=== PATIENT | male | born 1945 | race Caucasian/White ===

== ENCOUNTER 2018-07-11 07:33 | Inpatient (IN) ==
[2018-07-11] MEDS ORDERED: SODIUM CHLORIDE 0.9% 1000ML 1,000 ML IV SCH (08:15)
[2018-07-11] MEDS ORDERED: CEFEPIME 2,000 MG/20 ML VIAL IV STA (08:21)
[2018-07-11 08:38] LABS: Appearance Urine Clear (Clear); Bacteria Urine Automated Negative (Negative); Blood Urine Negative (Negative); Epithelial Cell Urine Auto 20-30 /lpf (0-5); Glucose Urine UA Negative (Negative); Ketones Urine Negative (Negative); Leukocyte Esterase Urine Trace (Negative); Nitrite Urine Positive (Negative); Protein Urine Negative (Negative); RBC Urine Automated 0-4 /hpf (0-4); Specific Gravity Urine 1.022 (1.000-1.030); Urobilinogen Urine Positive (Negative); WBC Urine Automated 0 /hpf (0-5)
[2018-07-11 08:45] LABS: Color Urine Dark Yellow
[2018-07-11 08:52] LABS: Bilirubin Urine Negative (Negative); Ictotest Urine Negative (Negative)
[2018-07-11 09:18] LABS: Albumin Level 2.8 gm/dl (3.4-5.0); BUN Creatinine Ratio 41.7 (10-20); Calcium 9.8 mg/dl (8.5-10.1); Creatinine Clr Calc Pharmacy 45.6 ml/min; Est GFR (African American) 43.8; Est GFR (Non-African American) 37.8; Magnesium 1.2 mg/dl (1.8-2.4); Potassium 4.3 mmol/L (3.5-5.1)
[2018-07-11 09:25] LABS: Bilirubin,Total 2.7 mg/dl (0.2-1); Globulin 2.7 gm/dl (2.5-4.0); Total Protein 5.5 gm/dl (6.4-8.2)
[2018-07-11 09:26] LABS: INR 1.1 (0.9-1.1); Partial Thromboplastin Ratio 0.8; Partial Thromboplastin Time 22.8 Seconds (21.0-31.0); Prothrombin Time 10.9 Seconds (9.0-12.0)
[2018-07-11] MEDS ORDERED: SODIUM CHLORIDE 0.9% 1000ML 1,000 ML IV ONE (09:36)
[2018-07-11] MEDS ORDERED: HYDROmorphone INJ 0.5 MG/0.5 ML SYR IV STA ×2 (09:36→10:45)
[2018-07-11 10:08] LABS: Agglutinated RBC 3+; Basophils # (auto) 0.01 K/uL (0-0.2); Basophils % (auto) 0.1 %; Eosinophils # (auto) 0.92 K/uL (0-0.5); Eosinophils % (auto) 5.7 %; Hematocrit (blood only) 25.7 % (42-52); Hemoglobin 9.2 g/dL (14.0-18.0); Immature Granulocytes # (auto) 0.19 K/uL (0.00-0.02); Immature Granulocytes % (auto) 1.2 %; Lymphocytes # (auto) 1.24 K/uL (1.2-3.4); Lymphocytes % (auto) 7.7 %; Mean Corpuscular Hgb Conc 35.8 g/dL (32-36); Mean Corpuscular Volume 94.5 fL (80-100); Monocytes # (auto) 0.29 K/uL (0.11-0.59); Monocytes % (auto) 1.8 %; Neutrophils # (auto) 13.52 K/uL (1.4-6.5); Neutrophils % (auto) 83.5 %; Platelet Count 356 K/uL (130-400); Red Blood Count 2.72 M/uL (4.7-6.1); White Blood Count 16.17 K/uL (4.8-10.8)
--- NOTE | 2018-07-11 11:21 | History & Physical Report ---
Date of Service July 11, 2018 Assessment & Plan (1) Knee pain: (2) Right shoulder pain: (3) Rash: Pt presented to ER with c/o intermittent ANDUJAR, intermittent R shoulder and L knee pain, 2 episodes of visual disturbance and generalized weakness and rash. Pt seen in PCP office on 07/09/18 and was found to have rash to abdomen and lower extremities and was hypotensive in office and was referred to ER. In ER patient was found to have leukocytosis, elevated bilirubin and abnormal renal functions. Had CT head negative for acute changes, chest x-ray was negative, CT abdomen/pelvis showed hepatic steatosis, left knee xray: mild degenerative change & small joint effusion. Patient was treated for possible UTI, discharged on Keflex. Urine culture results: probable contaminants. Patient has continued weakness, intermittent right shoulder and left knee pain, and rash. Today In ER pt afebrile, P: 75, R: 18, BP: 86/51 up to 101/54, 100% on RA. WBC: 16 (from 15.3 on 07/09/18), H/H: 9.2/25.7 (from 12.4/36.2 on 07/09/18), Plt: 356, INR: 1.1, PTT: 22.8, BUN: 73, Cr: 1.75, Lactate: 1.8 -In ER was given Cefepime, 2L NSS, Dilaudid 0.5mg IV DDX: rheumatological vs infectious etiology -further rheumatology labs pending -pending lyme -doxycycline -monitor CBC, BMP -ID consult, appreciate recommendations -May need to consider rheumatology consult (4) Elevated bilirubin: Total Bili: 2.7 (from 4.7 on 07/09/18). AST: 12, ALT: 32, Alk phos: 78 -monitor liver functions -pending hepatitis panel -GI consult (5) MOIRA (acute kidney injury): BUN: 73 (was 39 on 07/09/18), Cr: 1.75 (was 1.65 on 07/09/18). Out patient rec ords reviewed and baseline Cr: 1.0 with GFR >60 -monitor renal functions -avoid nephrotoxic agents when possible -hold home lisinopril/hctz (6) Hypomagnesemia: Magnesium: 1.2 -replace and monitor (7) HTN (hypertension): Pt reports had morning BP meds Initially hypotensive in ER, improved with IVF, however still on lower side -hold home lisinopril/HCTZ (8) Dyslipidemia: -Hold atorvastatin (9) Malignant neoplasm of prostate: H/O prostate CA s/p surgery DNR/DNI as per discussion with pt Follows with Dr Harris for routine care Pt was seen with Dr Mohamud. See addendum for further assessment and plan. History of Present Illness Chief Complaint: Rash, joint pain Primary Care Provider: Keith Harris MD Pt is 72 y/o M with PMH HTN, dyslipidemia, prostate CA s/p surgery, presented to ER with c/o joint pain and rash x 2 days. Patient states 2 days ago started with pain to right shoulder and left knee that has been intermittent and described as sharp when pain occurs. He feels like he has joint stiffness to left knee, and is unsure if had any knee swelling and has not noticed any redness or warmth to joint. Denies any known injury. Patient also reports his been having intermittent sweats and has been having generalized weakness. He has had intermittent frontal headache the past 2 days. Patient reports history of intermittent headaches occurring once to couple times a month and this headache felt similar. He states over the past 2 days he has had 2 episodes of visual disturbance where he has been unable to see and "felt like somebody was shining a flashlight into his eye" that lasted several minutes and then resolved. Patient denies any known headache with visual disturbance. Today describes diffuse body aching with movement. Pt seen in PCP office on 07/09/18 and was found to have rash to abdomen and lower extremities and was hypotensive in office and was referred to ER. In ER patient was found to have leukocytosis, elevated bilirubin and abnormal renal functions. Had CT head negative for acute changes, chest x-ray was negative, CT abdomen/pelvis showed hepatic steatosis, left knee xray: mild degenerative change & small joint effusion. Patient was treated for possible UTI, discharged on Keflex. Urine culture results: probable contaminants. Patient states has continued to have generalized weakness, intermittent right shoulder and left knee pain. He also reports he has noticed a rash that comes and goes to his abdomen and extremities. Denies any pain or itching at site of rash. Today noticed some tingling sensation to right fingers, and right leg with some numbness. No bowel movement today, reports formed dark stool yesterday. Has noticed orange color urine past couple of days. States approximately one month ago and influenza and reports no further cough since. Patient had outpatient Lyme titer which was negative on 07/07/2018. Reports couple years ago had known tick bite, denies any recent known tick bites. Denies recent travel, ill contacts. Denies fever/chills, N/V/D/C, dizziness, syncope, neck pain, neck stiffness, CP, SOB, orthopnea, palpitations, sore throat, choking, otalgia, rhinorrhea, abdominal pain, dysuria, urinary frequency, loss control of bowel/bladder, saddle paresthesias. Allergies Allergy/AdvReac Type Severity Reaction Status Date / Time omeprazole AdvReac Nausea Unverified 07/09/18 14:38 Home Medications Home Medications Medication Instructions Recorded Confirmed Type [id number] 1 tab PO Q6H PRN 07/09/18 07/11/18 History [Excedrin Extra Strength] atorvastatin 20 mg PO DAILY 07/09/18 07/11/18 History cephalexin [Keflex] 500 mg PO BID 7 Days #14 cap 07/09/18 07/11/18 Rx lisinopril-hydrochlorothiazide 1 tab PO BID 07/09/18 07/11/18 History multivitamin 1 tab PO DAILY 07/09/18 07/11/18 History omega 0-brf-wup-fish oil [Fish Oil] 2 cap PO BID 07/09/18 07/11/18 History oxycodone [Roxicodone] 5 mg PO Q8H PRN #9 tab 07/09/18 07/11/18 Rx pantoprazole 20 mg PO DAILY 07/09/18 07/11/18 History Past Med/Surg History Medical History Dyslipidemia (Chronic) HTN (hypertension) (Chronic) Malignant neoplasm of prostate (Chronic) s/p surgery HTN (hypertension) Hyperlipidemia Surgical History History of hemorrhoidectomy (Chronic) History of appendectomy (Chronic) History of carpal tunnel surgery of right wrist (Chronic) History of prostate surgery (Chronic) Family History Other Family history non-contributory Social History Preferred Language: Nigerien Communication Ability: Effective 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 Beliefs That Will Affect Care: None marital status: Current Living Situation: Spouse current occupational status: retired Other Information That Helps Us Care for You: No Feels Safe at Home: Yes Safety Concerns: Feels Safe At This Time Smoking Status: Former smoker Do You Dip or Chew Tobacco: No Second Hand Exposure: No Tobacco Cessation Education Requested by Patient: No Hx Alcohol Use: Yes Alcohol type: beer and wine Hx Substance Use: No Review of Systems Review of Systems: All systems reviewed & are unremarkable except as noted in HPI & below Physical Exam Physical Exam: General: no acute distress, obese Head: normocephalic, atraumatic Eyes: PERRL, EOM's intact, conjunctiva non-injected, anicteric ENT: normal inspection external ears, nose, mucous membranes mildly dry Neck: supple, trachea midline, non-tender, ROM intact, no rigidity noted Lungs: clear, no respiratory distress, no wheezing/rhonchi/rales CV: RRR, no murmur, no pitting pretibial edema Abd: normal BS, soft, non-tender Ext: Right shoulder with diffuse mild tenderness to palpation, ROM intact with tenderness, L knee with tenderness with flexion and extension without noted erythema or significant warmth or edema, distal pulses palpable Neuro: A&O x 3, no focal deficits noted, normal affect Skin: warm, dry, + non-blanching erythematous macules and papules to abdomen and bilateral legs, bilateral toes and bilateral fingers with dusky skin Results & Data Vital Signs (Past 12 Hours) Vital Signs Temp Pulse Pulse Resp BP BP Pulse Ox 07/11/18 10:31 75 14 109/53 L 100 07/11/18 10:30 77 19 100 07/11/18 10:16 77 16 89/38 L 98 07/11/18 10:15 77 23 95 07/11/18 10:01 77 18 81/57 L 96 07/11/18 10:00 80 16 94 07/11/18 09:47 76 18 07/11/18 09:46 75 18 97/48 L 05/05/19 09:45 77 18 07/11/18 09:31 77 14 101/50 L 07/11/18 09:30 80 26 H 07/11/18 09:16 80 31 H 103/51 L 07/11/18 09:15 73 19 97 07/11/18 09:01 79 25 H 104/47 L 96 07/11/18 09:00 81 24 98 07/11/18 08:57 83 21 113/56 L 97 07/11/18 08:55 79 30 H 101/54 L 95 07/11/18 08:54 76 20 95 07/11/18 08:47 78 25 H 101/54 L 97 07/11/18 07:37 36.8 C 75 18 86/51 L 100 Laboratory Results Short CBC 07/11/18 Range/Units 08:48 WBC 16.17 H (4.8-10.8) K/uL Hgb 9.2 L D (14.0-18.0) g/dL Hct 25.7 L (42-52) % Plt Count 356 (130-400) K/uL BMP 07/11/18 08:48 Sodium 133 L Potassium 4.3 Chloride 101 Carbon Dioxide 26 BUN 73 H D Creatinine 1.75 H Glucose 128 H Calcium 9.8 Liver Function 07/11/18 Range/Units 08:48 Total Bilirubin 2.7 H (0.2-1) mg/dl AST 12 L (15-37) U/L ALT 32 (12-78) U/L Alkaline Phosphatase 78 (45-117) U/L Albumin 2.8 L (3.4-5.0) gm/dl Urine 07/11/18 Range/Units 08:25 Urine Color Dark Yellow Urine Appearance Clear (Clear) Urine pH 5.0 (4.5-7.5) Ur Specific [place] 1.022 (1.000-1.030) Urine Protein Negative (Negative) Urine Glucose (UA) Negative (Negative) Supervising Physician Co-Signing Physician Notes I saw this patient with the physician senior court office assistant, I participated in the history, physical, review of systems, and physical exam. I reviewed the medications with the patient and the physician senior court office assistant and helped reconcile the medications. I helped take a detailed family and social history as well. I formulated the as sessment and plan personally with the physician senior court office assistant and went over it with the patient. Initiated Rheum w/u, this all coulb be viral or Rheumatic, ID and vascular to see. ROS-No Headache, No Visual Changes, No Nausea, No Vomiting, No Fever, No Chills, No Neck Pain, +Stiffness, No Chest Pain, No Palpitations, No SOB, No FERRARI, No Cough, No Sputum, No Wheezing, No Abdominal Pain, No Diarrhea, No Hematemesis, No Hemoptysis, No Unexpected Weight Loss, No Flank pain, No Melena, No Hematochezia, No Frequency, No Urgency, No Burning, No Hematuria, No Diaphoresis. Appetite is Normal, +Myalgias and arthralgias, +Rash, Weakness Physical Exam Gen-AAO x 3, NAD, Afebrile, Pleasant, Obese Head-NCAT, EOMI, PERRLA, Anicteric Sclera, No Posterior Pharyngeal Erythema Neck-Supple, No JVD, No Thyromegaly, No Masses, No LAD, No Bruits Lungs-Clear to Auscultation Bilaterally, No Rales, No Rhonchi, No Wheezing, No Crepitus Chest-No S4, +S1, +S2, No S3, No Murmurs, No Rubs, No Gallops, No Ectopy Abdomen-Soft, Bowel Sounds Present, Non Tender, Non Distended, No Hepatomegaly, No Splenomegaly, No Palpable Masses, No Rebound, No Rigidity, No Guarding Musculoskeletal-Full Range of Motion Bilaterally, No CVAT Extremities-+B/L toe Cyanosis and mottling, No Clubbing, Non Pitting Edema B/L LEs Nuero-Cranial Nerves II-XII grossly intact, Motor WNL, DTRs WNL, Strength WNL, Non Focal Psych-Normal Mood (1) Right shoulder pain Chronicity: acute Qualified Code(s): M25.511 - Pain in right shoulder
[2018-07-11] MEDS: DOXYCYCLINE HYCLATE 100 MG in DEXTROSE 5% 100 ML IV SCH ×2 (11:27→19:45)
--- NOTE | 2018-07-11 13:39 | Emergency Department Note ---
ED Visit Note I have personally evaluated this patient examined him and reviewed the pertinent labs and data. I have discussed the case with Dion Emerson, the physician lead recreation assistant and agree with the plan. Please refer to the PA note. This patient comes in complaining of joint aches and a rash. He was seen here on Thursday with similar complaints and extensive work-up which did reveal an elevated bilirubin as well as mild renal insufficiency and elevated white count. He was started on antibiotics for possible UTI. He has had no fever during any course in his illness his says his blood pressure has been low at times. When he triage he was in the 80s he quickly responded to fluids and is been in the low 100s here. he does complain of joint aches but otherwise is well- appearing after talking to Dion my PA, I was very concerned about his presentation and went to look at the patient immediately. I am concerned about the rash. It is vasculitic appearing is nonblanching on his feet where it is on his toes and he has spots on his legs as well that appear to be petechial/purpura. In light of this I did put him on respiratory isolation until we sort this out. His white count remains elevated at 16 however his lactic acid is normal he is afebrile. His hemoglobin has dropped a few grams since the last check however he has no blood in his stool and no signs of bleeding. It could potentially be hemolysis. His bilirubin actually looks better. We did cover empirically with 2 g of cefepime and did blood cultures. I do think he needs to be admitted for further treatment and evaluation this may be something infectious or viral. It could also be more vasculitic or rheumatologic. The [facility] team did see him in the ER for these measures. He did receive several liters of IV normal saline while in the ER as well as IV antibiotics. Critical care note I have personally spent greater than 30 minutes of critical care time in the [facility] management of this patient. This includes bedside care, interpretation of diagnostic studies, and testing, discussion with consultants, patient, and family members, and other required patient management activities. This 30 minutes is in excess of all separately billable procedures. .
[2018-07-11] MEDS ORDERED: ACETAMINOPHEN 325 MG TAB PO PRN (14:57)
[2018-07-11] MEDS ORDERED: ONDANSETRON INJ 2 MG/ML 2 ML VIAL IV PRN (14:57)
[2018-07-11] MEDS: OXYCODONE HCL IR 5 MG TAB (IMMEDIATE RELEASE) PO PRN (15:51)
[2018-07-11] MEDS: MAGNESIUM SULFATE / D5W 1 GM/100 ML BAG IV SCH ×2 (15:51→17:20)
[2018-07-11 16:08] LABS: Anti Streptolysin O Screen <200 IU/ml IU/ml (<200 IU/ml)
[2018-07-11 16:12] LABS: Lyme Ab IgG w/WB Rflx Negative (Negative); Lyme Ab IgM w/WB Rflx Negative (Negative)
[2018-07-11 16:48] LABS: Hepatitis B Surface Antigen Neg (Neg)
[2018-07-11 17:16] LABS: Act87 Hepatitis C IgG Screen Neg (Neg); Hepatitis C IgG 13Yrs+Old_Rflx Neg (Neg)
[2018-07-11] MEDS: HYDROmorphone INJ 0.5 MG/0.5 ML SYR IV PRN (19:45)
[2018-07-11] MEDS ORDERED: CEFEPIME CONSULT ACTIVE PRN (20:58)
[2018-07-12] MEDS: OXYCODONE HCL IR 5 MG TAB (IMMEDIATE RELEASE) PO PRN (03:55)
[2018-07-12 05:47] LABS: INR 1.1 (0.9-1.1); Prothrombin Time 11.3 Seconds (9.0-12.0)
[2018-07-12 06:01] LABS: Albumin Level 2.4 gm/dl (3.4-5.0); BUN Creatinine Ratio 49.4 (10-20); Calcium 8.8 mg/dl (8.5-10.1); Creatinine Clr Calc Pharmacy 45.8 ml/min; Est GFR (African American) 45.4; Est GFR (Non-African American) 39.1; Magnesium 1.4 mg/dl (1.8-2.4); Potassium 4.4 mmol/L (3.5-5.1)
[2018-07-12 06:04] LABS: Bilirubin,Total 3.2 mg/dl (0.2-1); Globulin 2.4 gm/dl (2.5-4.0); Total Protein 4.8 gm/dl (6.4-8.2)
[2018-07-12] MEDS: MAGNESIUM SULFATE / D5W 1 GM/100 ML BAG IV SCH ×2 (07:40→08:45)
[2018-07-12] MEDS: MULTIVITAMIN TAB PO SCH (07:41)
[2018-07-12] MEDS: PANTOprazole 40 MG TAB PO SCH (07:41)
[2018-07-12] MEDS: HYDROmorphone INJ 0.5 MG/0.5 ML SYR IV PRN ×2 (07:45→14:26)
[2018-07-12] MEDS: CEFEPIME 2,000 MG in SYRINGE 7.5 ML IV SCH (09:45)
--- NOTE | 2018-07-12 09:54 | Consultation ---
Date of Consultation July 12, 2018 Assessment & Plan (1) Extremity cyanosis: Pt with unusual sx of rash and joint pain and palpable pulses with painless cool/mottled distal extremities. Possibly some component of small vessel vasculitis, however, larger picture points toward autoimmune vs infe ctious etiology. No ESR results in chart. Unable to perform PPG's at this facility. No vascular surgical intervention would be beneficial for this pt. Do recommend rheumatology consult. Please call if needed. Present on Admission?: Yes History of Present Illness Reason for Consultation: mottled fingers and toes Attending Physician: Abhishek Mohamud DO History of Present Illness 72 yo m with hx of HTN, prostate ca s/p prostatectomy, and dyslipidemia, admitted with generalized weakness, rash, and mottled extremities, seen in consultation today for mottled toes/fingers. Pt states he was in normal state of health until about 3-4 days ago, when he began noting generalized weakness and R shoulder/L knee pain. Went to his PCP and noted mottling of abd/fingers to elbow/toes/feet as well as hypotension, and was sent to [facility]. Pt has never had similar sx. Mottling to extremities is intermittent. Admits associated tingling. Denies associated pain or worsening weakness. Admits fatigue and lack of appetite. Denies ANDUJAR, fever, sick contacts, recent traveling, chest pain, SOB, cough, N/V/D, rest pain, claudication, other complaints. No vascular imaging has been performed. Allergies Allergy/AdvReac Type Severity Reaction Status Date / Time omeprazole AdvReac Nausea Unverified 07/09/18 14:38 Home Medications Home Medications Medication Instructions Recorded Confirmed Type [id number] 1 tab PO Q6H PRN 07/09/18 07/11/18 History [Excedrin Extra Strength] atorvastatin 20 mg PO DAILY 07/09/18 07/11/18 History cephalexin [Keflex] 500 mg PO BID 7 Days #14 cap 07/09/18 07/11/18 Rx lisinopril-hydrochlorothiazide 1 tab PO BID 07/09/18 07/11/18 History multivitamin 1 tab PO DAILY 07/09/18 07/11/18 History omega 7-bxx-zte-fish oil [Fish Oil] 2 cap PO BID 05/03/19 05/05/19 History oxycodone [Roxicodone] 5 mg PO Q8H PRN #9 tab 07/09/18 07/11/18 Rx pantoprazole 20 mg PO DAILY 07/09/18 07/11/18 History Patient History Medical History Dyslipidemia (Chronic) HTN (hypertension) (Chronic) Malignant neoplasm of prostate (Chronic) s/p surgery HTN (hypertension) Hyperlipidemia Surgical History History of hemorrhoidectomy (Chronic) History of appendectomy (Chronic) History of carpal tunnel surgery of right wrist (Chronic) History of prostate surgery (Chronic) Family History Other Family history non-contributory Social History Preferred Language: Cook Islander Communication Ability: Effective 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 Beliefs That Will Affect Care: None marital status: Current Living Situation: Spouse current occupational status: retired Other Information That Helps Us Care for You: No Feels Safe at Home: Yes Safety Concerns: Feels Safe At This Time Smoking Status: Former smoker Do You Dip or Chew Tobacco: No Second Hand Exposure: No Tobacco Cessation Education Requested by Patient: No Hx Alcohol Use: Yes Alcohol type: beer and wine Hx Substance Use: No Review of Systems Constitutional: + fatigue, + malaise and + weakness; no fever, no chills, no sweats and no weight loss Eyes: no blind spots and no problem reported Ear, Nose, Mouth, Throat: no hearing loss and no sore throat Respiratory: no cough, no dyspnea, no dyspnea on exertion and no hemoptysis Cardiovascular: + edema; no chest pain, no palpitations, no syncope, no claudication and no problem reported Gastrointestinal: no abdominal pain, no early satiety, no nausea, no vomiting, no cramping, no change in bowel habits, no diarrhea/loose stools and no blood in stools Musculoskeletal: + joint pain; no back pain Integumentary: + rash and + change in skin color; no non-healing lesions, no skin ulcer, no wounds and no erythema Neurologic: no localized weakness, no generalized weakness, no paralysis, no loss of sensation, no tingling, no numbness, no paresthesia, no seizure-like activity, no syncope, no headache(s) and no confusion Psychiatric: as per Subjective / HPI Hematologic / Lymphatic: no easy bleeding, no easy bruising, no coagulopathy, no night sweats and no unexplained weight loss Physical Exam Constitutional: WD/WN, vitals as above well developed, well nourished, + ill appearing (acutely), + morbidly obese, well groomed, cooperative and comfortable; not in distress and not combative Eyes: PERRL, conjunctivae normal, anicteric sclerae EOM intact bilaterally ENMT: external ear and nose normal, oropharynx normal Ears: no hearing impairment Nose: no nasal discharge Throat: no posterior oropharynx abnormality Neck: trachea midline, no thyromegaly no tracheal deviation, no neck crepitus and neck nontender Respiratory: normal respiratory effort, lungs clear to auscultation able to speak in complete sentences; does not use accessory muscles, no cough and no audible wheezes Auscultation: lungs clear to auscultation bilaterally and + diminished lung sounds; no rhonchi and no wheezes Cardiovascular: Rate/Rhythm: regular rate and regular rhythm Heart Sounds: no gallop and no murmur Vessels: femoral pulses present, posterior tibial pulses present, dorsalis pedis pulses present, brachial pulses present and radial pulses present; no carotid bruit and no femoral bruit Extremities: + pedal edema; + abnormal capillary refill Gastrointestinal (Abdomen): normal bowel sounds, soft, nontender, no hepatosplenomegaly Inspection/Auscultation: abdomen normal to inspection and normal bowel sounds; abdomen not distended Percussion/Palpation: abdomen soft; abdomen nontender, no guarding, abdomen not rigid and no abdominal mass Musculoskeletal: no cyanosis or clubbing, extremities motor strength 5/5 Head/Neck/Chest: normocephalic, head atraumatic, neck supple and + abnormal inspection of chest wall; no chest tenderness Extremities: extremities normal to inspection; full ROM of extremities, + abnormal strength, normal strength, no chronic stasis changes, no clubbing, no amputation noted, no lower leg abnormality and no foot abnormality Skin: no rashes, warm and dry normal turgor, + rash and + mottling (all fingers/toes/BL hands, forefeet. Cool, does not barry. ); no lesions, no ulcers and no erythema Neurologic: moves all extremities and awake; no focal motor deficits and not confused Speech / Cognition: no expressive aphasia and no receptive aphasia Motor/Sensory: no tremor, no pronator drift and no sensory deficit Cranial Nerves: EOM intact bilaterally, normal facial strength and tongue midline Psychiatric: Orientation: alert, oriented x 3 and cooperative Apperance: appropriately dressed, appropriately groomed and appeared stated age Affect: euthymic affect Thought Process: goal directed thought process, linear/logical thought process and clear/coherent thought process Cognition: recent memory grossly intact, remote memory grossly intact, attention grossly intact and language grossly intact Estimated Intelligence: average estimated intelligence Results & Data Vital Signs (Past 12 Hours) Vital Signs Temp Pulse Pulse Resp BP Pulse Ox 07/12/18 08:00 87 07/12/18 07:12 36.7 C 80 16 108/47 L 94 07/12/18 03:59 36.5 C 90 20 108/49 L 97 07/11/18 23:07 36.9 C 100 H 18 102/47 L 95 07/11/18 21:50 98
--- NOTE | 2018-07-12 09:59 | Hospitalist Progress Note ---
Date of Service July 12, 2018 Assessment & Plan (1) Knee pain: (2) Right shoulder pain: (3) Rash: Pt presented to ER with c/o intermittent ANDUJAR, intermittent R shoulder and L knee pain, 2 episodes of visual disturbance and generalized weakness and rash. Pt seen in PCP office on 07/09/18 and was found to have rash to abdomen and lower extremities and was hypotensive in office and was referred to ER. In ER patient was found to have leukocytosis, elevated bilirubin and abnormal renal functions. Had CT head negative for acute changes, chest x-ray was negative, CT abdomen/pelvis showed hepatic steatosis, left knee xray: mild degenerative change & small joint effusion. Patient was treated for possible UTI, discharged on Keflex. Urine culture results: probable contaminants. Patient has continued weakness, intermittent right shoulder and left knee pain, and rash. Today In ER pt afebrile, P: 75, R: 18, BP: 86/51 up to 101/54, 100% on RA. WBC: 16 (from 15.3 on 07/09/18), H/H: 9.2/25.7 (from 12.4/36.2 on 07/09/18), Plt: 356, INR: 1.1, PTT: 22.8, BUN: 73, Cr: 1.75, Lactate: 1.8 -In ER was given Cefepime, 2L NSS, Dilaudid 0.5mg IV DDX: rheumatological vs infectious etiology UA Pos for UTI Vascular and ID on case -further rheumatology labs still pending, Hep panel neg so far -pending lyme -doxycycline and Cefepime -monitor CBC, BMP -ID on case -May need to consider rheumatology consult (4) Elevated bilirubin: -Bili 3.2 -monitor liver functions -GI consult (5) MOIRA (acute kidney injury): -monitor renal functions -avoid nephrotoxic agents when possible -hold home lisinopril/hctz IVFs (6) Hypomagnesemia: Magnesium: 1.2 -replace and monitor -Add Mg Oxide 400 PO TID (7) HTN (hypertension): Pt reports had morning BP meds Initially hypotensive in ER, improved with IVF, however still on lower side -hold home lisinopril/HCTZ (8) Dyslipidemia: -Hold atorvastatin (9) Malignant neoplasm of prostate: H/O prostate CA s/p surgery DNR/DNI as per discussion with pt Follows with Dr Harris for routine care ROS-No Headache, No Visual Changes, No Nausea, No Vomiting, No Fever, No Chills, No Neck Pain, +Stiffness, No Chest Pain, No Palpitations, No SOB, No FERRARI, No Cough, No Sputum, No Wheezing, No Abdominal Pain, No Diarrhea, No Hematemesis, No Hemoptysis, No Unexpected Weight Loss, No Flank pain, No Melena, No Hematochezia, No Frequency, No Urgency, No Burning, No Hematuria, No Diaphoresis. Appetite is Normal, +Myalgias and arthralgias, +Rash, till c profound Weakness Physical Exam Gen-AAO x 3, NAD, Afebrile, Pleasant, Obese, Weak Head-NCAT, EOMI, PERRLA, Anicteric Sclera, No Posterior Pharyngeal Erythema Neck-Supple, No JVD, No Thyromegaly, No Masses, No LAD, No Bruits Lungs-Clear to Auscultation Bilaterally, No Rales, No Rhonchi, No Wheezing, No Crepitus Chest-No S4, +S1, +S2, No S3, No Murmurs, No Rubs, No Gallops, No Ectopy Abdomen-Soft, Bowel Sounds Present, Non Tender, Non Distended, No Hepatomegaly, No Splenomegaly, No Palpable Masses, No Rebound, No Rigidity, No Guarding Musculoskeletal-Full Range of Motion Bilaterally, No CVAT Extremities-+B/L toe Cyanosis and mottling, No Clubbing, Non Pitting Edema B/L LEs, Rash slightly better Nuero-Cranial Nerves II-XII grossly intact, Motor WNL, DTRs WNL, Strength WNL, Non Focal Psych-Normal Mood Results & Data Vital Signs (Past 12 Hours) Vital Signs Temp Pulse Pulse Resp BP Pulse Ox 07/12/18 08:00 87 07/12/18 07:12 36.7 C 80 16 108/47 L 94 07/12/18 03:59 36.5 C 90 20 108/49 L 97 07/11/18 23:07 36.9 C 100 H 18 102/47 L 95 Current Diagnoses Malignant neoplasm of prostate (07/11/18) Hyperlipidemia, unspecified (07/11/18) Hypomagnesemia (07/11/18) Essential (primary) hypertension (07/11/18) Pain in right shoulder (07/11/18) Pain in unspecified knee (07/11/18) Acute kidney failure, unspecified (07/11/18) Unspecified jaundice (07/11/18) Rash and other nonspecific skin eruption (07/11/18) Allergies omeprazole Adverse Reaction (Unverified 07/09/18 14:38) Nausea Height/Weight/Isolation Height 5 ft 8 in Weight 106.5 kg Isolation Type Airborne Precautions Chemistry 07/11/18 07/12/18 08:48 05:20 Sodium 133 L 133 L Potassium 4.3 4.4 Chloride 101 103 Carbon Dioxide 26 25 Anion Gap 6.0 5.0 BUN 73 H D 84 H Creatinine 1.75 H 1.70 H Glucose 128 H 118 H Urinalysis 07/11/18 08:25 Urine Color Dark Yellow Urine Appearance Clear Urine pH 5.0 Ur Specific [place] 1.022 Urine Protein Negative Urine Glucose (UA) Negative Urine Ketones Negative Urine Blood Negative Urine Nitrite Positive A Urine Bilirubin Negative Microbiology 07/11/18 08:12 Blood Blood Culture - Pending 07/11/18 08:48 Blood Blood Culture - Pending (1) Right shoulder pain Chronicity: acute Qualified Code(s): M25.511 - Pain in right shoulder
--- NOTE | 2018-07-12 10:46 | Gastrointestinal Consultation ---
Date of Consultation July 12, 2018 Assessment & Plan (1) Elevated bilirubin: Pt is a 72 y/o male seen for elevated Tbili, normal trasnaminases and alk phos. He is currently admitted w generalized weakness, joint aches, rashes on legs, abd previously, and mottled appearances on toes and fingers. CT abd/pelvis showed signs of hepatic steatosis otherwise w/o signs of biliary dilation. 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 - Check Direct/Indirect bilirubin - Consider blood smear. - Consider Rheumatology consult for possible lupus given rashes, joint aches symptoms. - F/U infectious workup, ID consulted. - Will discuss case with Dr. Francisco. Supervising Physician Co-Signing Physician Notes I have personally seen and examined the patient with MARIBEL Andujar. Her note reflects my exam and findings. I agree with her impression and plan. Elevated T. 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 This is not contributing to his illness. Agree to look for hemolysis. Patient needs to have a Rheum evaluation and ID evaluation. Ji Francisco M.D. History of Present Illness Reason for Consultation: Elevated LFTs Requesting Physician: Dr. Abhishek Mohamud Attending Physician: Dr. Ji Francisco History of Present Illness Pt is a 72 y/o male seen today for elevated LFTs. He presented to ER with c/o intermittent ANDUJAR, intermittent R shoulder and L knee pain, generalized weakness, and rash to abdomen, lower extremities, mottled appearances to toes and fingers. He was treated recently for possible UTI w Keflex. Had hx of influenza ( too), back in May. He had Lymes titer that was negative. On eval, noted to hypotensive episodes w BP as low as 60s/40s yesterday, currently 108/47. He had leukocytosis WBC 16K, anemia 12/36, Plt normal 300s. BUN/Cr 84/1.7. LFTs w solely elevated Tbili 3-4. AST/ALT, Alk phos normal otherwise. Lymes titer, Hep B, C negative. Hep A pending. CT abd/pelvis showed hepatic steatosis, no ductal dilation. No signs of bowel obstruction or free air, + diverticulosis w/o diverticulitis. Pt denies any new meds/supplements except recent Keflex for UTI. Takes APAP about 2 tabs a night for generalized aches/pain. Denies any family hx of autoimmune diseases, any hereditary liver diseases. He was never told he had any liver disease. As noted above, hx of recent influenza in May. No travels. + former smoker and some ETOh uses, no illicit drugs. No tattoos, piercing, blood transfusions. Allergies Allergy/AdvReac Type Severity Reaction Status Date / Time omeprazole AdvReac Nausea Unverified 07/09/18 14:38 Home Medications Home Medications Medication Instructions Recorded Confirmed Type [id number]-[id number] 1 tab PO Q6H PRN 07/09/18 07/11/18 History [Excedrin Extra Strength] atorvastatin 20 mg PO DAILY 07/09/18 07/11/18 History cephalexin [Keflex] 500 mg PO BID 7 Days #14 cap 07/09/18 07/11/18 Rx lisinopril-hydrochlorothiazide 1 tab PO BID 07/09/18 07/11/18 History multivitamin 1 tab PO DAILY 07/09/18 07/11/18 History omega 2-iuo-vqf-fish oil [Fish Oil] 2 cap PO BID 07/09/18 07/11/18 History oxycodone [Roxicodone] 5 mg PO Q8H PRN #9 tab 07/09/18 07/11/18 Rx pantoprazole 20 mg PO DAILY 07/09/18 07/11/18 History Patient History Medical History Dyslipidemia (Chronic) HTN (hypertension) (Chronic) Malignant neoplasm of prostate (Chronic) s/p surgery HTN (hypertension) Hyperlipidemia Surgical History History of hemorrhoidectomy (Chronic) History of appendectomy (Chronic) History of carpal tunnel surgery of right wrist (Chronic) History of prostate surgery (Chronic) Family History Other Family history non-contributory Social History Preferred Language: Hong Konger Communication Ability: Effective 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 Beliefs That Will Affect Care: None marital status: Current Living Situation: Spouse current occupational status: retired Other Information That Helps Us Care for You: No Feels Safe at Home: Yes Safety Concerns: Feels Safe At This Time Smoking Status: Former smoker Do You Dip or Chew Tobacco: No Second Hand Exposure: No Tobacco Cessation Education Requested by Patient: No Hx Alcohol Use: Yes Alcohol type: beer and wine Hx Substance Use: No Review of Systems Review of Systems: All systems reviewed & are unremarkable except as noted in HPI & below Respiratory: no cough and no dyspnea Cardiovascular: no chest pain Gastrointestinal: no abdominal pain, no nausea, no vomiting, no constipation and no diarrhea/loose stools Integumentary: as per Subjective / HPI Physical Exam Constitutional: WD/WN, vitals as above well groomed, cooperative and comfortable Eyes: PERRL, conjunctivae normal, anicteric sclerae ENMT: external ear and nose normal, oropharynx normal Respiratory: normal respiratory effort, lungs clear to auscultation Cardiovascular: RRR, no murmur, no edema Gastrointestinal (Abdomen): normal bowel sounds, soft, nontender, no hepatosplenomegaly Skin: + rash (slightly raised rashes on upper legs; previous abdominal rashes gone); no jaundice mottled appearance to toes and fingers. Neurologic: Motor/Sensory: no asterixis Psychiatric: A+Ox3, euthymic affect Lymphatic: no lymphedema Results & Data Vital Signs (Past 12 Hours) Vital Signs Temp Pulse Pulse Resp BP Pulse Ox 07/12/18 08:00 87 07/12/18 07:12 36.7 C 80 16 108/47 L 94 07/12/18 03:59 36.5 C 90 20 108/49 L 97 07/11/18 23:07 36.9 C 100 H 18 102/47 L 95 Laboratory Results Laboratory Results - last 72 hr 07/11/18 07/11/18 07/11/18 08:25 08:48 08:48 WBC 16.17 H RBC 2.72 L Hgb 9.2 L D Hct 25.7 L MCV 94.5 MCH 33.8 MCHC 35.8 Plt Count 356 Immature Gran % (Auto) 1.2 Neut % (Auto) 83.5 Lymph % (Auto) 7.7 [place] % (Auto) 1.8 Eos % (Auto) 5.7 Baso % (Auto) 0.1 Immature Gran # (Auto) 0.19 H Neut # (Auto) 13.52 H Lymph # (Auto) 1.24 [place] # (Auto) 0.29 Eos # (Auto) 0.92 H Baso # (Auto) 0.01 RBC Agglutinates 3+ ESR PT 10.9 INR 1.1 APTT 22.8 PTT Ratio 0.8 Sodium Potassium Chloride Carbon Dioxide Anion Gap BUN Creatinine Est Cr Clr Drug Dosing Est GFR ( Amer) Est GFR (Non-Af Amer) BUN/Creatinine Ratio Glucose Lactate Calcium Magnesium Total Bilirubin AST ALT Alkaline Phosphatase Total Protein Albumin Globulin Albumin/Globulin Ratio Amylase Procalcitonin Urine Color Dark Yellow Urine Appearance Clear Urine pH 5.0 Ur Specific [place] 1.022 Urine Protein Negative Urine Glucose (UA) Negative Urine Ketones Negative Urine Blood Negative Urine Nitrite Positive A Urine Bilirubin Negative Urine Urobilinogen Positive H Ur Leukocyte Esterase Trace H Urine WBC (Auto) 0 Urine RBC (Auto) 0-4 U Hyaline Cast (Auto) 5-10 H U Epithel Cells (Auto) 20-30 H Urine Bacteria (Auto) Negative Lyme Disease IgG Ab Lyme Disease IgM Ab Hep Bs Antigen Hepatitis C Ab Screen Hepatitis C Antibody Anti-Streptolysin Scrn 07/11/18 07/11/18 07/11/18 08:48 08:48 08:48 WBC RBC Hgb Hct MCV MCH MCHC Plt Count Immature Gran % (Auto) Neut % (Auto) Lymph % (Auto) [place] % (Auto) Eos % (Auto) Baso % (Auto) Immature Gran # (Auto) Neut # (Auto) Lymph # (Auto) [place] # (Auto) Eos # (Auto) Baso # (Auto) RBC Agglutinates ESR PT INR APTT PTT Ratio Sodium 133 L Potassium 4.3 Chloride 101 Carbon Dioxide 26 Anion Gap 6.0 BUN 73 H D Creatinine 1.75 H Est Cr Clr Drug Dosing 45.6 Est GFR ( Amer) 43.8 Est GFR (Non-Af Amer) 37.8 BUN/Creatinine Ratio 41.7 H Glucose 128 H Lactate 1.8 Calcium 9.8 Magnesium 1.2 L Total Bilirubin 2.7 H AST 12 L ALT 32 Alkaline Phosphatase 78 Total Protein 5.5 L Albumin 2.8 L Globulin 2.7 Albumin/Globulin Ratio 1.0 Amylase 14 L Procalcitonin 1.05 H Urine Color Urine Appearance Urine pH Ur Specific [place] Urine Protein Urine Glucose (UA) Urine Ketones Urine Blood Urine Nitrite Urine Bilirubin Urine Urobilinogen Ur Leukocyte Esterase Urine WBC (Auto) Urine RBC (Auto) U Hyaline Cast (Auto) U Epithel Cells (Auto) Urine Bacteria (Auto) Lyme Disease IgG Ab Lyme Disease IgM Ab Hep Bs Antigen Hepatitis C Ab Screen Hepatitis C Antibody Anti-Streptolysin Scrn 07/11/18 07/11/18 07/11/18 08:48 08:58 08:58 WBC RBC Hgb Hct MCV MCH MCHC Plt Count Immature Gran % (Auto) Neut % (Auto) Lymph % (Auto) [place] % (Auto) Eos % (Auto) Baso % (Auto) Immature Gran # (Auto) Neut # (Auto) Lymph # (Auto) [place] # (Auto) Eos # (Auto) Baso # (Auto) RBC Agglutinates ESR PT INR APTT PTT Ratio Sodium Potassium Chloride Carbon Dioxide Anion Gap BUN Creatinine Est Cr Clr Drug Dosing Est GFR ( Amer) Est GFR (Non-Af Amer) BUN/Creatinine Ratio Glucose Lactate Calcium Magnesium Total Bilirubin AST ALT Alkaline Phosphatase Total Protein Albumin Globulin Albumin/Globulin Ratio Amylase Procalcitonin Urine Color Urine Appearance Urine pH Ur Specific [place] Urine Protein Urine Glucose (UA) Urine Ketones Urine Blood Urine Nitrite Urine Bilirubin Urine Urobilinogen Ur Leukocyte Esterase Urine WBC (Auto) Urine RBC (Auto) U Hyaline Cast (Auto) U Epithel Cells (Auto) Urine Bacteria (Auto) Lyme Disease IgG Ab Negative Lyme Disease IgM Ab Negative Hep Bs Antigen Neg Hepatitis C Ab Screen Neg Hepatitis C Antibody Neg Anti-Streptolysin Scrn <200 IU/ml 07/12/18 07/12/18 05:20 05:20 WBC RBC Hgb Hct MCV MCH MCHC Plt Count Immature Gran % (Auto) Neut % (Auto) Lymph % (Auto) [place] % (Auto) Eos % (Auto) Baso % (Auto) Immature Gran # (Auto) Neut # (Auto) Lymph # (Auto) [place] # (Auto) Eos # (Auto) Baso # (Auto) RBC Agglutinates ESR PT 11.3 INR 1.1 APTT PTT Ratio Sodium 133 L Potassium 4.4 Chloride 103 Carbon Dioxide 25 Anion Gap 5.0 BUN 84 H Creatinine 1.70 H Est Cr Clr Drug Dosing 45.8 Est GFR ( Amer) 45.4 Est GFR (Non-Af Amer) 39.1 BUN/Creatinine Ratio 49.4 H Glucose 118 H Lactate Calcium 8.8 Magnesium 1.4 L Total Bilirubin 3.2 H AST 11 L ALT 25 Alkaline Phosphatase 64 Total Protein 4.8 L Albumin 2.4 L Globulin 2.4 L Albumin/Globulin Ratio 1.0 Amylase Procalcitonin Urine Color Urine Appearance Urine pH Ur Specific [place] Urine Protein Urine Glucose (UA) Urine Ketones Urine Blood Urine Nitrite Urine Bilirubin Urine Urobilinogen Ur Leukocyte Esterase Urine WBC (Auto) Urine RBC (Auto) U Hyaline Cast (Auto) U Epithel Cells (Auto) Urine Bacteria (Auto) Lyme Disease IgG Ab Lyme Disease IgM Ab Hep Bs Antigen Hepatitis C Ab Screen Hepatitis C Antibody Anti-Streptolysin Scrn
[2018-07-12] MEDS: DOXYCYCLINE HYCLATE 100 MG in DEXTROSE 5% 100 ML IV SCH ×2 (10:48→20:59)
--- NOTE | 2018-07-12 10:49 | Infectious Disease Consult ---
Date of Consultation July 12, 2018 Assessment & Plan (1) Leukocytosis: No clear infectious etiology, suspect vascular. No fevers. WBC increase may be reactive, will follow. Agree with checking ESR ? PMR. Also would consider CPK as patient on prolonged statin. Blood cultures pending, continue abx for now following additional micro. Doubt tick borne. Check parvo serologies although less likely. Hepatitis panel negative. GI, vascluar following. Agree with rheum eval. History of Present Illness Attending Physician: Abhishek Mohamud, pt admitted with extreme weakness, sudden onset on Thursday and rash. and daughter present on my exam and help provide history. states on Thursday he became weak and went to pcp office, there he was found to have a raised erythematous rash on his abd, no itching or pain associated, also on upper arms b/l. was found to have mottled fingers and toes, sent to ER. No pain in hands or toes. no f/c at home. Had an episode of acute vision loss for 10 minutes on Thursday than a much shorter episode in pcp office. none since. no ANDUJAR, no neck pain or stiffness. Also having some pain in knee and shoulder, denies trauma. no falls. was evaluated in ER - negative cxr, ct head, knee xray ct abd/pelvis. UA negative, no gu symptoms other than orange urine, was told he had uti and d/c on kelfex. Continued to feel weak and came back to Er yesterday, now admitted. Autoimmune workup in progress. Still with weakness, essenitally unchanged. given doxy and cefipime, remains on this, toleraitng well. wbc 16. platelets nml. LFTS normal but T. bili eleated at 3. GI eval pending. Procalcitonin 1. Blood cultures pending, Lyme screen negative, Hepatitis panel negative. No ESR done. Eating well, no n/v/d/abd pain, no ANDUJAR, no visual changes currently. no neck stiffness, no cp, sob, cough, wheeze, +FERRARI due to weakness, states he could not climb flight of staris right now which is abnormal for him. no edema, no gu symptoms. rash is resolving, remains on arms calfs but no longer on truck, no itching, no open wounds, no vesicular rash, not painful. no joint swelling but diffuse weakness, denies joint or muscle pain on my exam, only weakness. no sick contacts. no new meds - does take a statin, has been on for prolonged time, same dose. 1 pet in house, dog, utd with vaccines. denies bug bites. no recent travel. no exposure to children. Had flu in May treated and improved. Allergies Allergy/AdvReac Type Severity Reaction Status Date / Time omeprazole AdvReac Nausea Unverified 07/09/18 14:38 Home Medications Home Medications Medication Instructions Recorded Confirmed Type [id number]-zalspofokhzvd-jjohtvea 1 tab PO Q6H PRN 07/09/18 07/11/18 History [Excedrin Extra Strength] atorvastatin 20 mg PO DAILY 07/09/18 07/11/18 History cephalexin [Keflex] 500 mg PO BID 7 Days #14 cap 07/09/18 07/11/18 Rx lisinopril-hydrochlorothiazide 1 tab PO BID 07/09/18 07/11/18 History multivitamin 1 tab PO DAILY 07/09/18 07/11/18 History omega 8-fcv-oxc-fish oil [Fish Oil] 2 cap PO BID 07/09/18 07/11/18 History oxycodone [Roxicodone] 5 mg PO Q8H PRN #9 tab 07/09/18 07/11/18 Rx pantoprazole 20 mg PO DAILY 07/09/18 07/11/18 History Patient History Medical History Dyslipidemia (Chronic) HTN (hypertension) (Chronic) Malignant neoplasm of prostate (Chronic) s/p surgery HTN (hypertension) Hyperlipidemia Surgical History History of hemorrhoidectomy (Chronic) History of appendectomy (Chronic) History of carpal tunnel surgery of right wrist (Chronic) History of prostate surgery (Chronic) Family History Other Family history non-contributory Social History Preferred Language: Hebrew Communication Ability: Effective 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 Beliefs That Will Affect Care: None marital status: Current Living Situation: Spouse current occupational status: retired Other Information That Helps Us Care for You: No Feels Safe at Home: Yes Safety Concerns: Feels Safe At This Time Smoking Status: Former smoker Do You Dip or Chew Tobacco: No Second Hand Exposure: No Tobacco Cessation Education Requested by Patient: No Hx Alcohol Use: Yes Alcohol type: beer and wine Hx Substance Use: No Review of Systems Review of Systems: All systems reviewed & are unremarkable except as noted in HPI & below Physical Exam Constitutional: WD/WN, vitals as above Eyes: PERRL, conjunctivae normal, anicteric sclerae ENMT: external ear and nose normal, oropharynx normal Neck: normal visual inspection and trachea midline Respiratory: normal respiratory effort, lungs clear to auscultation Cardiovascular: RRR, no murmur, no edema Gastrointestinal (Abdomen): normal bowel sounds, soft, nontender, no hepatosplenomegaly Musculoskeletal: no cyanosis or clubbing, extremities motor strength 5/5 Head/Neck/Chest: normocephalic, head atraumatic and neck supple Skin: + rash; no ulcers and no jaundice Trauma: no evidence of skin trauma b/l upper arms and calfs with erythematous rash, no vesicles, no excoriations, non tender, no warmth, no open wounds hands with discoloration/darkening at fingers. not warm or cool to touch, non tender Psychiatric: A+Ox3, euthymic affect Results & Data Vital Signs (Past 12 Hours) Vital Signs Temp Pulse Pulse Resp BP Pulse Ox 07/12/18 08:00 87 07/12/18 07:12 36.7 C 80 16 108/47 L 94 07/12/18 03:59 36.5 C 90 20 108/49 L 97 07/11/18 23:07 36.9 C 100 H 18 102/47 L 95
--- NOTE | 2018-07-12 12:02 | Ultrasound Report ---
Study: Ankle brachial indices. HISTORY: Claudication FINDINGS: Posterior tibial ankle brachial index on the right is 0.93. Dorsalis pedis ankle regular in dex is 1.09. Toe ankle brachial index is 0.75 Left ankle brachial index involving the posterior tibial artery is 0.88. Dorsalis pedis is 0.88. Left toe brachial index is 0.62 IMPRESSION: 1. Ankle brachial indices indicate mild to moderate small vessel and leg atherosclerotic change on th e left. 2. This is considered mild on the right. Electronically signed by: Uriel Marinelli M.D. 07/12/2018 12:00 PM
[2018-07-12] MEDS: MAGNESIUM OXIDE 400 MG TAB PO SCH ×2 (13:26→20:59)
[2018-07-12] MEDS: methylPREDNISolone 60 MG in SYRINGE 0 ML IV SCH (15:39)
[2018-07-13 06:04] LABS: INR 1.1 (0.9-1.1); Prothrombin Time 10.9 Seconds (9.0-12.0)
[2018-07-13 06:27] LABS: Albumin Level 2.5 gm/dl (3.4-5.0); BUN Creatinine Ratio 59.7 (10-20); Calcium 9.5 mg/dl (8.5-10.1); Creatinine Clr Calc Pharmacy 59.4 ml/min; Est GFR (African American) 62.2; Est GFR (Non-African American) 53.6; Potassium 4.3 mmol/L (3.5-5.1)
[2018-07-13 06:30] LABS: Albumin Globulin Ratio 0.8 (0.9-2); Bilirubin,Total 3.1 mg/dl (0.2-1); Total Protein 5.5 gm/dl (6.4-8.2)
[2018-07-13] MEDS: DOXYCYCLINE HYCLATE 100 MG in DEXTROSE 5% 100 ML IV SCH ×2 (07:44→21:15)
[2018-07-13] MEDS: CEFEPIME 2,000 MG in SYRINGE 7.5 ML IV SCH (07:44)
[2018-07-13] MEDS: methylPREDNISolone 60 MG in SYRINGE 0 ML IV SCH (07:45)
[2018-07-13] MEDS: MAGNESIUM OXIDE 400 MG TAB PO SCH ×3 (07:45→21:15)
[2018-07-13] MEDS: PANTOprazole 40 MG TAB PO SCH (07:45)
[2018-07-13] MEDS: MULTIVITAMIN TAB PO SCH (07:45)
[2018-07-13 08:02] LABS: Hematocrit (blood only) 17.8 % (42-52); Hemoglobin 6.3 g/dL (14.0-18.0); Mean Corpuscular Hgb Conc 35.4 g/dL (32-36); Mean Corpuscular Volume 96.7 fL (80-100); Nucleated RBC # (auto) 0.41 K/uL (0-0); Nucleated RBC % (auto) 1.8 %; Platelet Count 417 K/uL (130-400); Red Blood Count 1.84 M/uL (4.7-6.1); White Blood Count 22.49 K/uL (4.8-10.8)
[2018-07-13 08:08] LABS: Agglutinated RBC 3+; Basophils # (auto) 0.04 K/uL (0-0.2); Basophils % (auto) 0.2 %; Eosinophils # (auto) 1.01 K/uL (0-0.5); Eosinophils % (auto) 4.5 %; Immature Granulocytes # (auto) 1.89 K/uL (0.00-0.02); Immature Granulocytes % (auto) 8.4 %; Lymphocytes # (auto) 2.45 K/uL (1.2-3.4); Lymphocytes % (auto) 10.9 %; Monocytes # (auto) 0.78 K/uL (0.11-0.59); Monocytes % (auto) 3.5 %; Neutrophils # (auto) 16.32 K/uL (1.4-6.5); Neutrophils % (auto) 72.5 %
--- NOTE | 2018-07-13 09:27 | Surgery Progress Note ---
Date of Service July 13, 2018 Assessment & Plan (1) Extremity cyanosis: Pt with significant clinical and subjective improvement since starting steroid yesterday. no vascular surgical intervention required at this time. Please call if needed. Present on Admission?: Yes Subjective 72 yo f admitted with joint pain, fatigue, and discolored extremities, seen in f/u for cyanotic extremities today. Primary service called [facility] Rheumatology yesterday and started pt on solumedrol. Pt is OOB and states significant improvement in sx. Joint pain improved, extremities no longer cyanotic. Of note, pt did have decreased Hgb today at 6.3. Physical Exam Constitutional: WD/WN, vitals as above Cardiovascular: Rate/Rhythm: regular rate and regular rhythm Vessels: femoral pulses present, posterior tibial pulses present, dorsalis pedis pulses present and radial pulses present Extremities: normal capillary refill (Extremities no longer cyanotic and have normal cap refill, warm) Results & Data Vital Signs (Past 12 Hours) Vital Signs Temp Pulse Pulse Resp BP Pulse Ox 07/13/18 08:00 80 07/13/18 07:10 36.7 C 85 19 117/65 97 07/13/18 04:00 36.5 C 87 16 138/56 L 96 07/12/18 22:55 36.9 C 88 19 130/57 L 96
[2018-07-13 09:45] LABS: Hemoglobin 6.8 g/dL (14.0-18.0)
[2018-07-13] MEDS ORDERED: SODIUM CHLORIDE 0.9% 250 ML IV PRN (10:23)
[2018-07-13] MEDS ORDERED: POLYETHYLENE (MIRALAX) 17 GM PACK PO STA (10:37)
--- NOTE | 2018-07-13 11:08 | Hospitalist Progress Note ---
Date of Service July 13, 2018 Assessment & Plan (1) Knee pain: (2) Right shoulder pain: (3) Rash: Pt presented to ER with c/o intermittent ANDUJAR, intermittent R shoulder and L knee pain, 2 episodes of visual disturbance and generalized weakness and rash. Pt seen in PCP office on 07/09/18 and was found to have rash to abdomen and lower extremities and was hypotensive in office and was referred to ER. In ER patient was found to have leukocytosis, elevated bilirubin and abnormal renal functions. Had CT head negative for acute changes, chest x-ray was negative, CT abdomen/pelvis showed hepatic steatosis, left knee xray: mild degenerative change & small joint effusion. Patient was treated for possible UTI, discharged on Keflex. Urine culture results: probable contaminants. Patient has continued weakness, intermittent right shoulder and left knee pain, and rash. Today In ER pt afebrile, P: 75, R: 18, BP: 86/51 up to 101/54, 100% on RA. WBC: 16 (from 15.3 on 07/09/18), H/H: 9.2/25.7 (from 12.4/36.2 on 07/09/18), Plt: 356, INR: 1.1, PTT: 22.8, BUN: 73, Cr: 1.75, Lactate: 1.8 -In ER was given Cefepime, 2L NSS, Dilaudid 0.5mg IV DDX: rheumatological vs infectious etiology UA Pos for UTI Vascular and ID on case Dr Delaney-Rheum also guiding me, Started Solumedrol x 2 doses yesterday Looking Like Viral Vasculopathy Hb 6.3, repeat 6.8-2 Units ordered -further rheumatology labs still pending, Hep panel neg -pending lyme -doxycycline and Cefepime -monitor CBC, BMP -F/U c Rheum outpatient (4) Elevated bilirubin: -Bili 3.2 -monitor liver functions -GI leaning toward Gilbert's (5) MOIRA (acute kidney injury): -monitor renal functions -avoid nephrotoxic agents when possible -hold home lisinopril/hctz Stop IVFs (6) Hypomagnesemia: -replace and monitor -Mg Oxide 400 PO TID (7) HTN (hypertension): Pt reports had morning BP meds Initially hypotensive in ER, improved with IVF, however still on lower side Restart BP Meds, non nephrotoxic (8) Dyslipidemia: -Hold atorvastatin (9) Malignant neoplasm of prostate: H/O prostate CA s/p surgery DNR/DNI as per discussion with pt Follows with Dr Harris for routine care ROS-No Headache, No Visual Changes, No Nausea, No Vomiting, No Fever, No Chills, No Neck Pain, +Stiffness, No Chest Pain, No Palpitations, No SOB, No FERRARI, No Cough, No Sputum, No Wheezing, No Abdominal Pain, No Diarrhea, No Hematemesis, No Hemoptysis, No Unexpected Weight Loss, No Flank pain, No Melena, No Hematochezia, No Frequency, No Urgency, No Burning, No Hematuria, No Diaphoresis. Appetite is Normal, +Myalgias and arthralgias, +Rash, less Weakness Physical Exam Gen-AAO x 3, NAD, Afebrile, Pleasant, Obese, stronger today Head-NCAT, EOMI, PERRLA, Anicteric Sclera, No Posterior Pharyngeal Erythema Neck-Supple, No JVD, No Thyromegaly, No Masses, No LAD, No Bruits Lungs-Clear to Auscultation Bilaterally, No Rales, No Rhonchi, No Wheezing, No Crepitus Chest-No S4, +S1, +S2, No S3, No Murmurs, No Rubs, No Gallops, No Ectopy Abdomen-Soft, Bowel Sounds Present, Non Tender, Non Distended, No Hepatomegaly, No Splenomegaly, No Palpable Masses, No Rebound, No Rigidity, No Guarding Musculoskeletal-Full Range of Motion Bilaterally, No CVAT Extremities-+B/L toe Cyanosis and mottling, waxing and waning, No Clubbing, Non Pitting Edema B/L LEs, Rash slightly better Nuero-Cranial Nerves II-XII grossly intact, Motor WNL, DTRs WNL, Strength WNL, Non Focal Psych-Normal Mood Results & Data Vital Signs (Past 12 Hours) Vital Signs Temp Pulse Pulse Resp BP Pulse Ox 07/13/18 10:48 36.6 C 87 20 136/63 98 07/13/18 08:00 80 07/13/18 07:10 36.7 C 85 19 117/65 97 07/13/18 04:00 36.5 C 87 16 138/56 L 96 Current Diagnoses Malignant neoplasm of prostate (07/11/18) Elevated white blood cell count, unspecified (07/11/18) Hyperlipidemia, unspecified (07/11/18) Hypomagnesemia (07/11/18) Essential (primary) hypertension (07/11/18) Pain in right shoulder (07/11/18) Pain in unspecified knee (07/11/18) Acute kidney failure, unspecified (07/11/18) Unspecified jaundice (07/11/18) Rash and other nonspecific skin eruption (07/11/18) Cyanosis (07/11/18) Allergies omeprazole Adverse Reaction (Unverified 07/09/18 14:38) Nausea Height/Weight/Isolation Height 5 ft 8 in Weight 115.8 kg Isolation Type Airborne Precautions Chemistry 07/12/18 07/13/18 05:20 05:27 Sodium 133 L 135 L Potassium 4.4 4.3 Chloride 103 105 Carbon Dioxide 25 27 Anion Gap 5.0 3.0 BUN 84 H 78 H Creatinine 1.70 H 1.31 D Glucose 118 H 140 H Microbiology 07/11/18 08:48 Blood Blood Culture - Preliminary No growth to date. 07/11/18 08:12 Blood Blood Culture - Preliminary No growth to date. 07/12/18 09:50 Urine,Clean Catch Urine Culture - Pending (1) Right shoulder pain Chronicity: acute Qualified Code(s): M25.511 - Pain in right shoulder
[2018-07-13] MEDS ORDERED: FUROSEMIDE 60 MG in SYRINGE 0 ML IV ONE (12:15)
--- NOTE | 2018-07-13 14:33 | Infectious Disease Progress Nt ---
Date of Service July 13, 2018 Assessment & Plan (1) Leukocytosis: No clear infectious etiology, No fevers. WBC increase may be reactive, likely elevated in part due to IV steroids. will follow. Also would consider CPK as patient on prolonged statin. Blood cultures negative to date, continue abx for now following additional micro. Doubt tick borne. Check parvo serologies although less likely. Hepatitis panel negative. GI, vascluar following. Agree with rheum eval. Subjective pt remains afebrile since admission, wbc increased today to 22 but did receive IV steroids. hgb decreased to 6 today. ESR 2. Blood cultures and urine cultures negative to date. Imaging unremarkable. Remains on IV doxy and cefepime, tolerating well. Results & Data Vital Signs (Past 12 Hours) Vital Signs Temp Pulse Pulse Resp BP Pulse Ox 07/13/18 10:48 36.6 C 87 20 136/63 98 07/13/18 08:00 80 07/13/18 07:10 36.7 C 85 19 117/65 97 07/13/18 04:00 36.5 C 87 16 138/56 L 96 Laboratory Results Microbiology 07/12/18 09:50 Urine,Clean Catch Urine Culture - Preliminary No growth - Less than 1,000 colonies/mL, Final report to follow. 07/11/18 08:48 Blood Blood Culture - Preliminary No growth to date. 07/11/18 08:12 Blood Blood Culture - Preliminary No growth to date.
[2018-07-13] MEDS: AMLODIPINE BESYLATE 5 MG TAB PO SCH (15:37)
[2018-07-14 06:44] LABS: Potassium 4.6 mmol/L (3.5-5.1)
[2018-07-14 06:46] LABS: Albumin Globulin Ratio 0.8 (0.9-2); Albumin Level 2.6 gm/dl (3.4-5.0); BUN Creatinine Ratio 48.5 (10-20); Bilirubin,Total 3.1 mg/dl (0.2-1); Calcium 9.7 mg/dl (8.5-10.1); Creatinine Clr Calc Pharmacy 67.6 ml/min; Est GFR (African American) 69.1; Est GFR (Non-African American) 59.6; Globulin 3.1 gm/dl (2.5-4.0); Total Protein 5.7 gm/dl (6.4-8.2)
[2018-07-14 07:39] LABS: Mean Corpuscular Hgb Conc 33.5 g/dL (32-36); Mean Platelet Volume 9.2 fL (7.4-10.4)
[2018-07-14] MEDS: AMLODIPINE BESYLATE 5 MG TAB PO SCH (08:22)
[2018-07-14] MEDS: MAGNESIUM OXIDE 400 MG TAB PO SCH ×3 (08:22→21:09)
[2018-07-14] MEDS: MULTIVITAMIN TAB PO SCH (08:22)
[2018-07-14] MEDS: PANTOprazole 40 MG TAB PO SCH (08:22)
[2018-07-14] MEDS: ATORVASTATIN 20 MG TAB PO SCH (08:22)
[2018-07-14] MEDS: CEFEPIME 2,000 MG in SYRINGE 7.5 ML IV SCH ×4 (08:23→21:48)
[2018-07-14 08:30] LABS: Hematocrit (blood only) 22.4 % (42-52); Hemoglobin 7.5 g/dL (14.0-18.0); Mean Corpuscular Volume 92.6 fL (80-100); Nucleated RBC # (auto) 1.43 K/uL (0-0); Nucleated RBC % (auto) 5.2 %; Platelet Count 483 K/uL (130-400); Red Blood Count 2.42 M/uL (4.7-6.1); White Blood Count 27.38 K/uL (4.8-10.8)
[2018-07-14 08:33] LABS: ALC (manual) 3.29 K/uL (1.2-3.4); Agglutinated RBC 3+; Lymphocytes # (manual) 3.29 K/uL (1.2-3.4); Metamyelocytes # (manual) 0.82 K/uL (0-0); Myelocytes # (manual) 3.83 K/uL (0-0); Polychromasia 1+
[2018-07-14 09:17] LABS: Reticulocyte % 10.7 % (0.5-2.0); Reticulocytes # 0.26 10^6/uL (0.02-0.10)
[2018-07-14] MEDS: DOXYCYCLINE HYCLATE 100 MG in DEXTROSE 5% 100 ML IV SCH ×2 (09:35→21:08)
[2018-07-14] MEDS ORDERED: POLYETHYLENE (MIRALAX) 17 GM PACK PO PRN (12:43)
[2018-07-14] MEDS ORDERED: METOPROLOL TARTRATE 1 MG/ML VIAL IV PRN (13:32)
[2018-07-14] MEDS ORDERED: METOPROLOL TARTRATE 1 MG/ML VIAL IV ONE (13:53)
[2018-07-14] MEDS ORDERED: dilTIAZem HCl 5 MG/ML 5 ML VIAL IV STA (14:28)
[2018-07-14] MEDS ORDERED: dilTIAZem HCl 125 MG in DEXTROSE 5% 100 ML IV SCH (14:30)
--- NOTE | 2018-07-14 14:47 | Cardiology Consultation ---
Date of Consultation July 14, 2018 Assessment & Plan (1) Atrial fibrillation with RVR: Patient with new findings of atrial fibrillation with rapid ventricular response today at 1310. He is astigmatic with no subjective sensation of elevated heart rate. His blood pressure is stable. The patient was initially admitted for severe right shoulder and left knee pain as well as some migratory rash that is since resolved. 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 Further work-up in progress as Dr Webster of the hospitalist service had recently discussed the results of the patient's peripheral smear with pathology and plans to obtain advice from hematology. Will discontinue oral amlodipine and start a diltiazem infusion. Start oral metoprolol. Patient is not a candidate for anticoagulation for stroke prophylaxis given his profound anemia. The patient does not appear to have sepsis. Antinuclear antibody screen and further serologic markers have been drawn and are pending. Lyme screen was negative and his hepatitis work-up was negative. Parvovirus titers are pending. Would consider transfer of patient to tertiary center where inpatient hematology and rheumatology services be available. History of Present Illness Attending Physician: Weston Webster MD History of Present Illness Ferdinand Gregorio is a 72 year old male seen in cardiology consultation per the request of Dr Webster for the evaluation of tachycardia. The patient's primary care provider is Dr. Harris of [facility]. He has not followed with cardiology previously. The patient had been admitted to the hospital on 07/11/2018 having had complaints of episodic right shoulder and left knee pain. He had initially been found to have an ecchymotic rash over his left toe that had transiently also been reportedly found on his trunk as well. The rash on his foot has resolved. His bowels however it showed me a photo of it on her mobile phone. The patient described having had severe focal pain of his left knee. Findings thus far have included a leukocytosis initially to a range of 15,000, that had increased to 22,000 yesterday and 27,000 today.He received treatment with Solu-Medrol 60 mg on 07/12 and 07/13. Cultures have been negative thus far. Patient has been afebrile. The patient's hemoglobin which had been 12.4 and 07/12/2018 declined to 9.2, and then 6.3 yesterday. He received 2 units of packed red blood cells as hemoglobin of 7.5 today. Hyperbilirubinemia is noted as well as elevated lactate dehydrogenase, and elevated low sensitivity C-reactive protein at 5.91. Haptoglobin is currently pending. His creatinine was elevated at 1.7 and is trended toward improvement at 1.2 today. Cardiology was consulted because he had an abrupt change in his heart rhythm. Today at 1310 telemetry reveals that sinus rhythm in the range of 90 to 100 bpm abruptly changed to a narrow complex tachycardia in the range of 120-130 bpm r est consistent with atrial fibrillation versus atrial flutter. Patient has no history of cardiac arrhythmia. He has no subjective sensation that his heart rate is elevated. Allergies Allergy/AdvReac Type Severity Reaction Status Date / Time omeprazole AdvReac Nausea Unverified 07/09/18 14:38 Home Medications Home Medications Medication Instructions Recorded Confirmed Type [id number]-[id number] 1 tab PO Q6H PRN 07/09/18 07/11/18 History [Excedrin Extra Strength] atorvastatin 20 mg PO DAILY 07/09/18 07/11/18 History cephalexin [Keflex] 500 mg PO BID 7 Days #14 cap 07/09/18 07/11/18 Rx lisinopril-hydrochlorothiazide 1 tab PO BID 07/09/18 07/11/18 History multivitamin 1 tab PO DAILY 07/09/18 07/11/18 History omega 4-tbc-qvm-fish oil [Fish Oil] 2 cap PO BID 07/09/18 07/11/18 History oxycodone [Roxicodone] 5 mg PO Q8H PRN #9 tab 07/09/18 07/11/18 Rx pantoprazole 20 mg PO DAILY 07/09/18 07/11/18 History Patient History Medical History Dyslipidemia (Chronic) HTN (hypertension) (Chronic) Malignant neoplasm of prostate (Chronic) s/p surgery HTN (hypertension) Hyperlipidemia Surgical History History of hemorrhoidectomy (Chronic) History of appendectomy (Chronic) History of carpal tunnel surgery of right wrist (Chronic) History of prostate surgery (Chronic) Family History Other Family history non-contributory Social History Preferred Language: Cymro Communication Ability: Effective Surveillance Supervisor Required: No Beliefs That Will Affect Care: None marital status: Current Living Situation: Spouse current occupational status: retired Other Information That Helps Us Care for You: No Feels Safe at Home: Yes Safety Concerns: Feels Safe At This Time Smoking Status: Former smoker Do You Dip or Chew Tobacco: No Second Hand Exposure: No Tobacco Cessation Education Requested by Patient: No Hx Alcohol Use: Yes Alcohol type: beer and wine Hx Substance Use: No Physical Exam Physical Exam: General: no acute distress and stated age Eyes: conjunctiva are pink and non-injected, sclera clear Neck: normal jugular venous pulse, no hepatojugular reflux Chest: normal shape and normal respiratory effort Lungs: clear to auscultation and percussion Cardiac Exam: -Tachycardic, regular heart sounds, no murmurs, rubs, or gallops, no jugular venous distention Abdomen: abdomen soft, non-tender, no abnormal masses and no hepatosplenomegaly Extremities: no edema and no cyanosis Neuro:awake, coversant, follows commands, no focal motor deficits Psych: appropriate affect and insight. Results & Data Vital Signs (Past 12 Hours) Vital Signs Temp Pulse Pulse Resp BP BP BP 07/14/18 13:57 129 H 131/83 07/14/18 13:32 115 H 18 131/83 07/14/18 07:26 36.3 C L 85 20 142/74 H 07/14/18 04:18 36.7 C 82 19 122/62 Pulse Ox 07/14/18 13:57 07/14/18 13:32 97 07/14/18 07:26 98 07/14/18 04:18 96 Laboratory Results Cardiac Enzymes 07/14/18 07/14/18 Range/Units 05:39 09:43 AST 31 (15-37) U/L Lactate Dehydrogenase 350 H (87-241) U/L CBC 07/14/18 07/14/18 Range/Units 05:39 06:17 WBC Cancelled 27.38 H RBC Cancelled 2.42 L Hgb Cancelled 7.5 L Hct Cancelled 22.4 L Plt Count Cancelled 483 H Neut # (Auto) Cancelled Lymph # (Auto) Cancelled Calvert # (Auto) Cancelled Eos # (Auto) Cancelled Baso # (Auto) Cancelled Comprehensive Metabolic Panel 07/14/18 Range/Units 05:39 Sodium 139 (136-145) mmol/L Potassium 4.6 (3.5-5.1) mmol/L Chloride 108 H (98-107) mmol/L Carbon Dioxide 28 (21-32) mmol/L BUN 58 H (7-18) mg/dl Creatinine 1.20 (0.6-1.4) mg/dl Glucose 93 (70-99) mg/dl Calcium 9.7 (8.5-10.1) mg/dl AST 31 (15-37) U/L ALT 32 (12-78) U/L Alkaline Phosphatase 91 (45-117) U/L Total Protein 5.7 L (6.4-8.2) gm/dl Albumin 2.6 L (3.4-5.0) gm/dl Intake and Output 07/13/18 07/14/18 07/14/18 22:59 06:59 14:59 Intake Total 1020 / 2140.000 610 / 2140.000 730 / 730 Output Total 2475 / 4950 1275 / 4950 525 / 525 Balance -1455 / -2810.000 -665 / -2810.000 205 / 205 Intake: IV 110 / 220.000 110 / 110 Vibramycin 100 mg In D5 100 ml 110 / 220.000 110 / 110 @ 50 mls/hr IV Q12 [facility] Rx#: [id number] Oral 400 / 1300 500 / 1300 620 / 620 Intake (Blood Product) Amt 620 / 620 Packed Cells, Leukoreduced 310 / 310 Unit [id number] Packed Cells, Leukoreduced 310 / 310 Unit [id number] Output: Urine 2475 / 4950 1275 / 4950 525 / 525 Other: Weight 115.3 kg Diagnostic Findings EKG performed 07/14/2018 at 1328 reveals atrial fibrillation 112 bpm, with mild nonspecific ST abnormality, compared to 07/09/2018 atrial fibrillation has replaced sinus rhythm and the heart rate is increased by [address] changes noted. Medications Administered Current Inpatient Medications Acetaminophen (Tylenol) 650 mg PO Q4H PRN PRN Reason: pain/fever Stop: 08/10/18 14:56 Atorvastatin Calcium (Lipitor) 20 mg PO DAILY [facility] Stop: 08/13/18 08:59 Last Admin: 07/14/18 08:22 Dose: 20 mg Documented by: Docusate Sodium (Colace) 100 mg PO BID [facility] Stop: 08/13/18 20:59 Hydromorphone HCl (Dilaudid) 0.5 mg IV Q4 PRN PRN Reason: Pain Stop: 07/25/18 17:10 Last Admin: 07/12/18 14:26 Dose: 0.5 mg Documented by: Doxycycline Hyclate 100 mg/ (Dextrose) 110 mls @ 50 mls/hr IV Q12 [facility] Stop: 07/21/18 11:59 Last Infusion: 07/14/18 12:05 Dose: Infused Documented by: Sodium Chloride (Nss) 250 mls @ 15 mls/hr IV .[id number] PRN PRN Reason: For Transfusion Stop: 08/12/18 10:22 Diltiazem HCl 125 mg/ Dextrose 125 mls @ 5 mls/hr IV .Q24H [facility]; Protocol Stop: 08/13/18 14:29 Last Admin: 07/14/18 14:52 Dose: 5 mg/hr, 5 mls/hr Documented by: Cefepime HCl 2,000 mg/ Syringe 20 mls @ 5.5 mls/min IV Q12H [facility]; Protocol Stop: 07/22/18 08:59 Magnesium Oxide (Mag-Ox) 400 mg PO TID [facility] Stop: 08/11/18 13:59 Last Admin: 07/14/18 08:22 Dose: 400 mg Documented by: Metoprolol Tartrate (Lopressor) 5 mg IV Q6 PRN PRN Reason: Tachycardia Stop: 08/13/18 17:59 Last Admin: 07/14/18 13:57 Dose: 5 mg Documented by: Miscellaneous (Order Awaiting Action) 1 ea N/A QS [facility] Stop: 08/10/18 15:59 Last Admin: 07/14/18 08:00 Dose: Not Given Documented by: Miscellaneous Information (Cefepime Consult Active) 1 ea N/A UD PRN PRN Reason: Consult Stop: 08/10/18 20:57 Multivitamins (Multivitamin Tab) 1 tab PO DAILY [facility] Stop: 08/11/18 08:59 Last Admin: 07/14/18 08:22 Dose: 1 tab Documented by: Ondansetron HCl (Zofran) 4 mg IV Q6H PRN PRN Reason: Nausea Stop: 08/10/18 14:56 Oxycodone HCl (Roxicodone Immediate Rel) 5 mg PO Q8H PRN PRN Reason: pain Stop: 07/25/18 14:56 Last Admin: 07/12/18 03:55 Dose: 5 mg Documented by: Pantoprazole Sodium (Protonix) 40 mg PO DAILY [facility] Stop: 08/11/18 08:59 Last Admin: 07/14/18 08:22 Dose: 40 mg Documented by: Polyethylene Glycol (Miralax Powder Packet) 17 gm PO DAILY PRN PRN Reason: Constipation Stop: 08/13/18 12:42 Last Admin: 07/14/18 14:18 Dose: 17 gm Documented by:
--- NOTE | 2018-07-14 15:16 | Hospitalist Progress Note ---
Date of Service July 14, 2018 Assessment & Plan (1) Knee pain: (2) Right shoulder pain: (3) Rash: Patient is a 72 yr male who presents with Intermittent ANDUJAR, intermittent R shoulder and L knee pain, 2 episodes of visual disturbance and generalized weakness and rash. Pt was evaluated by PCP on 07/09/18 and was found to have rash to abdomen and lower extremities and was hypotensive in office and was referred to ER. Patient was found to have leukocytosis, elevated bilirubin and abnormal renal functions. Patient was treated for possible UTI, discharged on Keflex. Urine culture results: probable contaminants. 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 --L knee Xr ay:Mild degenerative change throughout all major joint compartments. Small joint effusion --CXR:Negative chest. --CT ABD:Hepatic steatosis. No ductal dilatation identified on this noncontrast study. 2 mm lower pole left renal calculus. Dilated renal collecting systems versus bilateral parapelvic cysts. No ureteral dilatation identified. No evidence of bowel obstruction. No evidence of free air. Diverticulosis. 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 This could be secondary to an infection, though if no infectious cause is found one may need to consider evaluation for a hematologic disorder. He does have a leukocytosis and left shift, but I do not see blasts or dysplastic features. Will need to keep patient warm and use blood warmers for any additional transfusions." --ESR: normal --Haptoglobin pending --LDH:350 --CRP: 5.91 --Procalcitonin:1.05 --Lyme Screen: Negative --Hepatitis panel: Negative --Immunological/Serological work up pending --Appreciate Vascular/ID Input --Prior hospitalist discussed with Dr Delaney-Rheumatology Received IV Solumedrol >>Transitioned to Prednisone S/P PRBCs Started on Folic acid CT chest pending Needs to use Blood warmers, warm IV fluids if needs further transfusions Monitor H&H Empirically continue IV antibiotics Appreciate Oncology Input Needs Outpatient Rheumatology/Oncology Follow up upon discharge Atrial Fibrillation RVR: New diagnosis Asymptomatic Amlodipine discontinued Started on Diltiazem infusion, Metoprolol Appreciate Cardiology Input Not a candidate for anticoagulation given hemolysis, anemia (4) Elevated bilirubin: Likely due to hemolysis monitor liver functions GI on board--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 Hepatitis panel negative (5) MOIRA (acute kidney injury): Resolved monitor renal functions avoid nephrotoxic agents when possible hold lisinopril/hctz for now Received IV fluids (6) Hypomagnesemia: replace and monitor as needed (7) HTN (hypertension): Presented with hypotension in ER, improved with IVF BP stable Monitor (8) Dyslipidemia: Hold atorvastatin (9) Malignant neoplasm of prostate: H/O prostate CA s/p surgery Code Status DNR/DNI Subjective Patient is seen and examined at bedside States joint pain, headache, visual changes, weakness resolved Rash has much improved Denies any obvious bleeding issues, chest pain, SOB, dizziness Developed Afib RVR today Discussed with Oncology and Cardiology today Family at bedside Review of Systems Review of Systems: All systems reviewed & are unremarkable except as noted in HPI & below Physical Exam Physical Exam: Physical Exam: Vitals signs as noted above General Appearance:Obese, no apparent distress Head: normocephalic, Atraumatic Eyes: normal inspection, EOMI Neck: supple, Trachea midline Respiratory/Chest: Normal breath sounds, CTA Cardiovascular: Irregularly Irregular, No murmur Abdomen/GI:Soft, Non tender, Bowel sounds present Extremities/Musculoskelatal:normal inspection, 1+ B/L LE edema Neurologic/Psych:AAOX3, grossly no focal neurological deficits Skin: normal color, warm, Abdominal rash; LE foot rash Improved Results & Data Vital Signs (Past 12 Hours) Vital Signs Temp Pulse Pulse Resp BP BP BP 07/14/18 13:57 129 H 131/83 07/14/18 13:32 115 H 18 131/83 07/14/18 07:26 36.3 C L 85 20 142/74 H 07/14/18 04:18 36.7 C 82 19 122/62 Pulse Ox 07/14/18 13:57 07/14/18 13:32 97 07/14/18 07:26 98 07/14/18 04:18 96 Laboratory Results Short CBC 07/14/18 07/14/18 Range/Units 05:39 06:17 WBC Cancelled 27.38 H Hgb Cancelled 7.5 L Hct Cancelled 22.4 L Plt Count Cancelled 483 H BMP 05/08/19 05:39 Sodium 139 Potassium 4.6 Chloride 108 H Carbon Dioxide 28 BUN 58 H Creatinine 1.20 Glucose 93 Calcium 9.7 Liver Function 07/14/18 Range/Units 05:39 Total Bilirubin 3.1 H (0.2-1) mg/dl AST 31 (15-37) U/L ALT 32 (12-78) U/L Alkaline Phosphatase 91 (45-117) U/L Albumin 2.6 L (3.4-5.0) gm/dl Diagnostic Findings CANDELARIO: 1. Ankle brachial indices indicate mild to moderate small vessel and leg atherosclerotic change on the left. 2. This is considered mild on the right. (1) Right shoulder pain Chronicity: acute Qualified Code(s): M25.511 - Pain in right shoulder
[2018-07-14] MEDS: predniSONE 20 MG TAB PO SCH (16:27)
[2018-07-14] MEDS: FOLIC ACID 1 MG TAB PO SCH (16:27)
[2018-07-14] MEDS: METOPROLOL TARTRATE 25 MG TAB PO SCH (16:28)
--- NOTE | 2018-07-14 16:49 | CT Scan Report ---
CT OF THE CHEST WITHOUT IV CONTRAST CLINICAL HISTORY: Evaluate for malignancy. COMPARISON STUDY: Chest radiograph July 09, 2018. CT DOSE: 809.52 mGy.cm TECHNIQUE: Axial images of the chest were obtained without IV contrast. Images were reviewed in the axial, sagittal, and coronal planes. IV contrast was not administered for this examination. Automat ed exposure control was utilized for the study. A dose lowering technique was utilized adhering to t he principles of ALARA. FINDINGS: No enlarged axillary, mediastinal or hilar lymph nodes are present. The heart is mildly en larged. There is extensive coronary artery calcification. The central airways are patent. No pneumoth orax or pleural effusion is noted. There is no consolidation to suggest pneumonia. A 7 mm irregular s olid left lower lobe nodule on image 169 of 281 is noted. There is also a 4 mm lingular nodule on soila ge 128. The central airways are patent. Sclerosis of multiple thoracic vertebral bodies, most notably T5-T11 is noted. This is unlikely to reflect metastatic disease. There is associated anterior osteop hytosis.] Infiltration of the liver is noted. IMPRESSION: 1. A few indeterminate solid pulmonary nodules, the largest of which is a 7 mm irregular left lower l obe nodule. These can be followed according to the attached recommendations. 2. No thoracic lymphadenopathy. 3. Increased sclerosis of multiple thoracic vertebral bodies, most notably T5-T11. Metastatic disease is considered unlikely however the findings could be correlated with PSA levels. 4. Fatty liver. Please refer to below summary of Fleischner criteria recommendations for follow-up of incidental CT n odules (Harjeet Dial, Guidelines for management of small pulmonary nodules detected on CT scans: A sta tement from the Fleischner Society, Radiology 237: [phone].) SOLID NODULES Solitary nodule size: <6 mm * low risk patients: no follow-up needed * high risk patients: optional CT at 12 months Solitary nodule size: 6-8 mm * low risk patients: follow-up at 6-12 months, then consider further follow-up at 18-24 months * high risk patients: initial follow-up CT at 6-12 months and then at 18-24 months if no change Solitary nodule size: >8 mm * either low or high risk patients - consider follow-up CT at 3 months, and/or CT-PET, and/or biopsy Multiple nodules size: <6 mm * low risk patients: no routine follow-up * high risk patients: optional CT at 12 months Multiple nodules size: 6-8 mm * low risk patients: follow-up at 3-6 months, then consider further follow-up at 18-24 months * high risk patients: follow-up at 3-6 months, then at 18-24 months if no change Multiple nodules size: >8 mm * low risk patients: follow-up at 3-6 months, then consider further follow-up at 18-24 months * high risk patients: follow-up at 3-6 months, then at 18-24 months if no change Electronically signed by: Simon Brown M.D. 07/14/2018 4:48 PM
--- NOTE | 2018-07-14 18:02 | Oncology Consultation ---
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 - No signs of infection. Culture is negative so far. - Imaging study showed no hepatomegaly splenomegaly, no intra-abdominal lymphadenopathy. No B symptoms. Raised the possibility of Cold-agglutinin disease, additional workup including rheumatological workup pending. I spoke with the hospitalist about his case, advised him to start oral folic acid 1 mg once-a-day. As she responded well with the steroid treatment, I would like to continue with oral prednisone perhaps at 80 mg per day and see how he does in terms of hemolysis and skin rash and joint pain. Some sclerotic changes noted in the thoracic spine, will check PSA level. 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 I'm planning to see him back in the clinic as an outpatient. He will need CBCD, LFT, LDH, haptoglobin, reticulocyte count checkup every weekly as an outpatient. Thanks for the consultation. Earle Browne MD Hem/Onc History of Present Illness Attending Physician: Weston Webster MD 72-year-old male, Who was seen by his primary-care provider last week for increasing skin rash involving the both lower extremities, abdominal wall, increasing right shoulder pain and left knee joint pain of for few days duration, no fever, no sore throat, no new pulmonary symptoms. He her blood workup on 07/09/2017, found to have elevated bilirubin level, he was seen at [facility] ER, he was then discharged on the same day but within 48 hours he had increasing generalized weakness, skin rash, now admitted in the hospital for further evaluation. His hemoglobin level was around 12 g/dL recently, dropped down to around 6.3 g/dL, found to have evidence of hemolysis, abnormal bilirubin level related to the hemolysis, no obvious liver or spleen findings noted in the imaging studies, no interval lymphadenopathy or mediastinal lymphadenopathy noted, received 2 units of PRBC, Juany test positive but negative for IgG, positive with C3b, raised the possibility of Cold-agglutinin, additional workup including rheu matological workup is pending. I saw him at bedside, he received 2 days of IV steroid treatment, significant improvement of skin rash noted, joint pain in the right shoulder and the left knee has improved to great extent, once again no fever, no sore throat, no new cardiac or pulmonary symptoms, has some mild leg edema, no nausea, no vomiting, no bleeding from any sites. Allergies Allergy/AdvReac Type Severity Reaction Status Date / Time omeprazole AdvReac Nausea Unverified 07/09/18 14:38 Home Medications Home Medications Medication Instructions Recorded Confirmed Type kwgswjm-[id number]-[id number] 1 tab PO Q6H PRN 07/09/18 07/11/18 History [Excedrin Extra Strength] atorvastatin 20 mg PO DAILY 07/09/18 07/11/18 History cephalexin [Keflex] 500 mg PO BID 7 Days #14 cap 07/09/18 07/11/18 Rx lisinopril-hydrochlorothiazide 1 tab PO BID 07/09/18 07/11/18 History multivitamin 1 tab PO DAILY 07/09/18 07/11/18 History omega 2-ggk-ami-fish oil [Fish Oil] 2 cap PO BID 07/09/18 07/11/18 History oxycodone [Roxicodone] 5 mg PO Q8H PRN #9 tab 07/09/18 07/11/18 Rx pantoprazole 20 mg PO DAILY 07/09/18 07/11/18 History Patient History Medical History Dyslipidemia (Chronic) HTN (hypertension) (Chronic) Malignant neoplasm of prostate (Chronic) s/p surgery HTN (hypertension) Hyperlipidemia Surgical History History of hemorrhoidectomy (Chronic) History of appendectomy (Chronic) History of carpal tunnel surgery of right wrist (Chronic) History of prostate surgery (Chronic) Family History Other Family history non-contributory Social History Preferred Language: Lithuanian Communication Ability: Effective Pathology Laboratory Technologist Required: No Beliefs That Will Affect Care: None marital status: Current Living Situation: Spouse current occupational status: retired Other Information That Helps Us Care for You: No Feels Safe at Home: Yes Safety Concerns: Feels Safe At This Time Smoking Status: Former smoker Do You Dip or Chew Tobacco: No Second Hand Exposure: No Tobacco Cessation Education Requested by Patient: No Hx Alcohol Use: Yes Alcohol type: beer and wine Hx Substance Use: No Review of Systems Review of Systems: GENERAL: No recent change in weight, denies weakness and fatigue present, no fever, sweats or chills. SKIN: skin rash involving the both lower extremities, abdominal wall, his shared with me regarding the pictures that she took it in the last one week, no bruising. HEAD: has some mild intermittent headaches, no dizziness. EYES: he had some blurring of vision lasted for about few minutes and then he recovered well,, no diplopia, EARS: No earache ,no tinnitus, NOSE: No epistaxis, No nasal discharge or stuffiness, MOUTH: No sores, no dysphagia, no hoarseness of voice, NECK: No lumps, No swelling in thyroid area. No stiffness. PULMONARY: No cough, No shortness of breath, no hemoptysis, no chest pain, No wheezing. CARDIOVASCULAR: No anginal chest pain, no PND, no orthopnea. No palpitation, no leg edema. No syncope. GASTRIINTESTINAL: No abdominal pain, no nausea or vomiting. No diarrhea, No constipation. No blood in stool or black tarry stools. No abdominal distention. UROLOGIC: No burning urination. No hematuria. MUSCULOSKELETAL: right shoulder and left knee joint pain of for few days duration which has responded well with the steroid treatment.. HEMATOLOGIC: anemia noted during this hospitalization,, no bleeding disorder, No bruising. He received 2 units of PRBC yesterday. NEUROLOGIC: No seizures, no focal weakness, no speech difficulty, No memory disturbances. No tingling or numbness of the extremities. PSYCHRIATRIC: No depression. No anxiety. No psychosis. Results & Data Vital Signs (Past 12 Hours) Vital Signs Temp Pulse Pulse Resp BP BP BP 07/14/18 17:30 64 142/64 H 07/14/18 17:15 81 123/63 07/14/18 16:30 83 137/70 07/14/18 15:58 36.5 C 82 18 149/80 H 07/14/18 15:45 87 118/62 07/14/18 15:30 86 145/75 H 07/14/18 15:15 86 134/81 07/14/18 15:11 91 H 142/65 H 07/14/18 13:57 129 H 131/83 07/14/18 13:32 115 H 18 131/83 07/14/18 07:26 36.3 C L 85 20 142/74 H Pulse Ox 07/14/18 17:30 07/14/18 17:15 07/14/18 16:30 07/14/18 15:58 98 07/14/18 15:45 07/14/18 15:30 07/14/18 15:15 07/14/18 15:11 07/14/18 13:57 07/14/18 13:32 97 07/14/18 07:26 98 On exam: - Alert and oriented x3, well built slightly obese man, not in any distress. - HEENT: no icterus, no pallor, Throat: Normal. - Neck: No palpable cervical lymphadenopathy. - Chest: clear to auscultation. - Abdomen: soft, nontender, no hepatomegaly, no splenomegaly. - No focal neuro deficit. - Extremities: no finger clubbing, no leg edema. - No skin rash at this time. - No palpable lymphadenopathy in the axilla. Blood workup done on 07/09/2018: - WBC 13,200, H&H of 11.7/34, MCV 95, Platelet count of 287,000 - ESR > 81. - BUN/creatinine: 38/1.4, calcium 10.6, total bilirubin level 4.8, normal other liver function test. 07/09/2018, [facility] ER blood workup: - WBC 15,300, H&H of 12.4/36, Platelet count of 260,000, MCV 96. - ANC 12,700 - Total bilirubin: 4.7, normal other liver function test. - Hemoglobin level dropped down to around 6.3 g/dL as of 07/13/2018. - Normal PT and PTT. - LDH > 350 - Serum creatinine level improved to around 1.2 as of 07/14/2018.' Extensive rhumatological workup era pending. Hepatitis A and B and C serology > Negative. Blood banking: - Direct Juany test positive - Direct Juany test with IgG > Negative - Direct Juany test with C3b positive. IMAGING: CT of the abdomen and pelvis (07/09/2018, noncontrast study) - Hepatic steatosis, no ductal dilatation - 2 mm right lower pole left kidney calculus - No bowel obstruction. - Diverticulosis, - No intra-abdominal lymphadenopathy. CT chest without contrast (07/14/2018) - Few indeterminate lung nodules largest one is 7 mm in the left lower lobe. - No mediastinal lymphadenopathy. - Some sclerotic changes noted in the multiple thoracic vertebral bodies. - Fatty liver. Ankle-brachial index index (07/12/2018) - Suggestive of mild to moderate small vessel and the atherosclerotic changes on the left side. - Mild changes noted on the right side.
[2018-07-14] MEDS: DOCUSATE SODIUM 100 MG CAP PO SCH (21:08)
[2018-07-15 07:40] LABS: BUN Creatinine Ratio 43.6 (10-20); Calcium 9.6 mg/dl (8.5-10.1); Est GFR (African American) 73.5; Est GFR (Non-African American) 63.4; Magnesium 1.9 mg/dl (1.8-2.4); Potassium 5.1 mmol/L (3.5-5.1)
[2018-07-15 07:50] LABS: Hematocrit (blood only) 21.3 % (42-52); Hemoglobin 7.4 g/dL (14.0-18.0); Mean Corpuscular Hgb Conc 34.7 g/dL (32-36); Mean Corpuscular Volume 93.8 fL (80-100); Nucleated RBC # (auto) 1.69 K/uL (0-0); Platelet Count 531 K/uL (130-400); Red Blood Count 2.27 M/uL (4.7-6.1); White Blood Count 33.95 K/uL (4.8-10.8)
[2018-07-15] MEDS: FOLIC ACID 1 MG TAB PO SCH (08:51)
[2018-07-15] MEDS: MAGNESIUM OXIDE 400 MG TAB PO SCH ×2 (08:52→14:13)
[2018-07-15] MEDS: DOCUSATE SODIUM 100 MG CAP PO SCH (08:52)
[2018-07-15] MEDS: predniSONE 20 MG TAB PO SCH (08:52)
[2018-07-15] MEDS: PANTOprazole 40 MG TAB PO SCH (08:52)
[2018-07-15] MEDS: ATORVASTATIN 20 MG TAB PO SCH (08:52)
[2018-07-15] MEDS: MULTIVITAMIN TAB PO SCH (08:52)
[2018-07-15] MEDS: CEFEPIME 2,000 MG in SYRINGE 7.5 ML IV SCH (08:53)
[2018-07-15] MEDS: METOPROLOL TARTRATE 25 MG TAB PO SCH (08:53)
[2018-07-15] MEDS: DOXYCYCLINE HYCLATE 100 MG in DEXTROSE 5% 100 ML IV SCH (08:54)
[2018-07-15 09:50] LABS: ALC (manual) 8.83 K/uL (1.2-3.4); Agglutinated RBC 3+; Eosinophils # (manual) 3.06 K/uL (0-0.5); Lymphocytes # (manual) 8.83 K/uL (1.2-3.4); Metamyelocytes # (manual) 1.02 K/uL (0-0); Monocytes # (manual) 2.04 K/uL (0.11-0.59); Myelocytes # (manual) 2.72 K/uL (0-0); Polychromasia 1+
--- NOTE | 2018-07-15 11:10 | Infectious Disease Progress Nt ---
Date of Service July 15, 2018 Assessment & Plan (1) Leukocytosis: No clear infectious etiology, No fevers. WBC increase may be reactive, likely elevated in part due to steroids. would follow off of abx, suspect noninfectious etiology. ok for d/c from ID standpoint when otherwise stable. Subjective wbc and platelets increased, now on po steoids. s/p heme eval. PSA pending. blood cultures remain negative, parvo ab pending. lyme screen negative. remans afebrile since admission, for post d/c rheum eval as well. urine culture negative, ct chest without infiltrate sclerosis t spine noted. echo negative for veg. Results & Data Vital Signs (Past 12 Hours) Vital Signs Temp Pulse Pulse Resp BP BP Pulse Ox 07/15/18 10:45 36.6 C 60 17 120/58 L 98 07/15/18 07:11 36.9 C 66 19 137/64 95 07/15/18 03:58 36.7 C 65 18 137/88 96 07/14/18 23:59 73 07/14/18 23:18 36.8 C 75 15 132/69 96 Laboratory Results Microbiology 07/12/18 09:50 Urine,Clean Catch Urine Culture - Final No growth - less than 1,000 colonies/mL. 07/11/18 08:48 Blood Blood Culture - Preliminary No growth to date. 07/11/18 08:12 Blood Blood Culture - Preliminary No growth to date.
--- NOTE | 2018-07-15 13:22 | Cardiology Progress Note ---
Date of Service July 15, 2018 Assessment & Plan (1) Atrial fibrillation with RVR: Echocardiogram revealed normal LVEF, no significant structural heart disease. Cntinue metoprolol tartrate 25 mg twice daily. Patient not candidate for anticoagulation due to his anemia. (2) Hemolytic anemia: Hematology input noted and appreciated. Patient now on prednisone 80 mg by mouth daily along with Protonix. Subjective Subjective: Subjective: Chief Complaint: follow up elevated heart rate Subjective: Patient feeling comfortable. Denies any sensation of palpitations although he did not feel anything when he was in the atrial fibrillation yesterday. Telemetry reveals stable sinus rhythm. His diltiazem was discontinued overnight last night as his heart rate approach the range of 60 bpm. He converted from atrial fibrillation with mildly elevated ventricular rate yesterday afternoon to sinus rhythm shortly after starting the bolus/infusion of diltiazem. He has since received metoprolol tartrate 25 mg yesterday at 1628 and again at 8:53 AM today. He denies any subjective fevers or chills. Denies any shoulder or knee pain. His stated that she noted mild purpuric rash on her knees and low back early this morning when she was helping bathe him. This has resolved and I see no rash on my exam today. No fever is noted on vital signs. Blood pressure remained stable. Physical Exam Physical Exam: General: no acute distress and stated age Eyes: conjunctiva are pink and non-injected, sclera clear Neck: normal jugular venous pulse, no hepatojugular reflux Chest: normal shape and normal respiratory effort Lungs: clear to auscultation and percussion Cardiac Exam: - regular heart sounds, no murmurs, rubs, or gallops, no jugular venous distention Abdomen: abdomen soft, non-tender, no abnormal masses and no hepatosplenomegaly Skin: Mild jaundice Extremities: no edema and no cyanosis Neuro:awake, coversant, follows commands, no focal motor deficits Psych: appropriate affect and insight. Results & Data Vital Signs (Past 12 Hours) Vital Signs Temp Pulse Resp BP BP Pulse Ox 07/15/18 10:45 36.6 C 60 17 120/58 L 98 07/15/18 07:11 36.9 C 66 19 137/64 95 07/15/18 03:58 36.7 C 65 18 137/88 96
--- NOTE | 2018-07-15 13:54 | Hospitalist Progress Note ---
Date of Service July 15, 2018 Assessment & Plan (1) Knee pain: (2) Right shoulder pain: (3) Rash: Patient is a 72 yr male who presents with Intermittent ANDUJAR, intermittent R shoulder and L knee pain, 2 episodes of visual disturbance and generalized weakness and rash. Pt was evaluated by PCP on 07/09/18 and was found to have rash to abdomen and lower extremities and was hypotensive in office and was referred to ER. Patient was found to have leukocytosis, elevated bilirubin and abnormal renal functions. Patient was treated for possible UTI, discharged on Keflex. Urine culture results: probable contaminants. 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 --L knee Xr ay:Mild degenerative change throughout all major joint compartments. Small joint effusion --CXR:Negative chest. --CT ABD:Hepatic steatosis. No ductal dilatation identified on this noncontrast study. 2 mm lower pole left renal calculus. Dilated renal collecting systems versus bilateral parapelvic cysts. No ureteral dilatation identified. No evidence of bowel obstruction. No evidence of free air. Diverticulosis. No evidence of acute diverticulitis --CT Chest: A few indeterminate solid pulmonary nodules, the largest of which is a 7 mm irregular left lower lobe nodule. These can be followed according to the attached recommendations. No thoracic lymphadenopathy. Increased sclerosis of multiple thoracic vertebral bodies, most notably T5-T11. Metastatic disease is considered unlikely however the findings could be correlated with PSA levels. Fatty liver. 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 This could be secondary to an infection, though if no infectious cause is found one may need to consider evaluation for a hematologic disorder. He does have a leukocytosis and left shift, but I do not see blasts or dysplastic features. Will need to keep patient warm and use blood warmers for any additional transfusions." --ESR: normal --PSA: Normal --Haptoglobin pending --LDH:350 --CRP: 5.91 --Procalcitonin:1.05 --Lyme Screen: Negative --Hepatitis panel: Negative --Immunological/Serological work up pending --Appreciate Vascular/ID/Rheumatology Input Received IV Solumedrol >>Transitioned to Prednisone 80mg daily --To continue for 2 weeks for now S/P PRBCs Started on Folic acid Needs to use Blood warmers, warm IV fluids if needs further transfusions Monitor H&H Empiric IV antibiotics will be discontinued Appreciate Oncology Input Needs Outpatient Rheumatology/Oncology Follow up upon discharge Atrial Fibrillation RVR: New diagnosis Asymptomatic Amlodipine discontinued Diltiazem infusion discontinued Continue Metoprolol Appreciate Cardiology Input Not a candidate for anticoagulation given hemolysis, anemia Needs FU with Cardiology as outpatient (4) Elevated bilirubin: Likely due to hemolysis monitor liver functions GI on board--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 Hepatitis panel negative (5) MOIRA (acute kidney injury): Resolved monitor renal functions avoid nephrotoxic agents when possible Resume lisinopril/hctz as able Received IV fluids (6) Hypomagnesemia: replace and monitor as needed (7) HTN (hypertension): Presented with hypotension in ER, improved with IVF BP stable Monitor (8) Dyslipidemia: Resume atorvastatin (9) Malignant neoplasm of prostate: H/O prostate CA s/p surgery Code Status DNR/DNI Disposition: Plan to discharge home today Subjective Patient is seen and examined at bedside States joint pain, headache, visual changes, weakness resolved Developed some rash on knees and lowerback overnight which improved Discussed with , Dr.Nilesh Browne, and today Converted to sinus Patient is eager to get discharged Denies any obvious bleeding issues, chest pain, SOB, dizziness Family at bedside Patient feels well, offers no complaints Review of Systems Review of Systems: All systems reviewed & are unremarkable except as noted in HPI & below Physical Exam Physical Exam: Physical Exam: Vitals signs as noted above General Appearance:Obese, no apparent distress Head: normocephalic, Atraumatic Eyes: normal inspection, EOMI Neck: supple, Trachea midline Respiratory/Chest: Normal breath sounds, CTA Cardiovascular: Irregularly Irregular, No murmur Abdomen/GI:Soft, Non tender, Bowel sounds present Extremities/Musculoskelatal:normal inspection, 1+ B/L LE edema Neurologic/Psych:AAOX3, grossly no focal neurological deficits Skin: normal color, warm, Abdominal rash; LE foot rash Improved Results & Data Vital Signs (Past 12 Hours) Vital Signs Temp Pulse Resp BP BP Pulse Ox 07/15/18 10:45 36.6 C 60 17 120/58 L 98 07/15/18 07:11 36.9 C 66 19 137/64 95 07/15/18 03:58 36.7 C 65 18 137/88 96 Laboratory Results Short CBC 07/15/18 Range/Units 06:59 WBC 33.95 H* (4.8-10.8) K/uL Hgb 7.4 L (14.0-18.0) g/dL Hct 21.3 L (42-52) % Plt Count 531 H (130-400) K/uL BMP 07/15/18 06:59 Sodium 138 Potassium 5.1 Chloride 107 Carbon Dioxide 27 BUN 50 H Creatinine 1.14 Glucose 122 H Calcium 9.6 (1) Right shoulder pain Chronicity: acute Qualified Code(s): M25.511 - Pain in right shoulder
--- NOTE | 2018-07-15 14:27 | Discharge Summary ---
Date of Service July 15, 2018 Admission HPI Per Admitting Provider Pt is 72 y/o M with PMH HTN, dyslipidemia, prostate CA s/p surgery, presented to ER with c/o joint pain and rash x 2 days. Patient states 2 days ago started with pain to right shoulder and left knee that has been intermittent and described as sharp when pain occurs. He feels like he has joint stiffness to left knee, and is unsure if had any knee swelling and has not noticed any redness or warmth to joint. Denies any known injury. Patient also reports his been having intermittent sweats and has been having generalized weakness. He has had intermittent frontal headache the past 2 days. Patient reports history of intermittent headaches occurring once to couple times a month and this headache felt similar. He states over the past 2 days he has had 2 episodes of visual disturbance where he has been unable to see and "felt like somebody was shining a flashlight into his eye" that lasted several minutes and then resolved. Patient denies any known headache with visual disturbance. Today describes diffuse body aching with movement. Pt seen in PCP office on 07/09/18 and was found to have rash to abdomen and lower extremities and was hypotensive in office and was referred to ER. In ER patient was found to have leukocytosis, elevated bilirubin and abnormal renal functions. Had CT head negative for acute changes, chest x-ray was negative, CT abdomen/pelvis showed hepatic steatosis, left knee xray: mild degenerative change & small joint effusion. Patient was treated for possible UTI, discharged on Keflex. Urine culture results: probable contaminants. Patient states has continued to have generalized weakness, intermittent right shoulder and left knee pain. He also reports he has noticed a rash that comes and goes to his abdomen and extremities. Denies any pain or itching at site of rash. Today noticed some tingling sensation to right fingers, and right leg with some numbness. No bowel movement today, reports formed dark stool yesterday. Has noticed orange color urine past couple of days. States approximately one month ago and influenza and reports no further cough since. Patient had outpatient Lyme titer which was negative on 07/07/2018. Reports couple years ago had known tick bite, denies any recent known tick bites. Denies recent travel, ill contacts. Denies fever/chills, N/V/D/C, dizziness, syncope, neck pain, neck stiffness, CP, SOB, orthopnea, palpitations, sore throat, choking, otalgia, rhinorrhea, abdominal pain, dysuria, urinary frequency, loss control of bowel/bladder, saddle paresthesias. Admission Exam Per Admitting Provider General: no acute distress, obese Head: normocephalic, atraumatic Eyes: PERRL, EOM's intact, conjunctiva non-injected, anicteric ENT: normal inspection external ears, nose, mucous membranes mildly dry Neck: supple, trachea midline, non-tender, ROM intact, no rigidity noted Lungs: clear, no respiratory distress, no wheezing/rhonchi/rales CV: RRR, no murmur, no pitting pretibial edema Abd: normal BS, soft, non-tender Ext: Right shoulder with diffuse mild tenderness to palpation, ROM intact with tenderness, L knee with tenderness with flexion and extension without noted erythema or significant warmth or edema, distal pulses palpable Neuro: A&O x 3, no focal deficits noted, normal affect Skin: warm, dry, + non-blanching erythematous macules and papules to abdomen and bilateral legs, bilateral toes and bilateral fingers with dusky skin Principal Diagnosis Discharge Information Discharge Diagnosis Acute Hemolytic Anemia Atrial Fibrillation Acute Kidney Injury Discharge Goals Decrease discomfort,Improve function,Improve disease control Discharge Activity Limitations Per instructions/follow-up Discharge Data Allergies Allergy/AdvReac Type Severity Reaction Status Date / Time omeprazole AdvReac Nausea Unverified 07/09/18 14:38 Consultations 07/11/18 10:07 ED Decision to Admit Stat 07/11/18 14:57 Consult Gastroenterology Routine Consult Infectious Diseases Routine Consult Vascular Surgery Routine 07/12/18 10:38 Consult Rheumatology Routine 07/14/18 09:33 Consult Oncology Routine 07/14/18 13:31 Consult Cardiology Routine Procedures Performed CT head: No acute intracranial abnormality. L Knee X ray: 1. Mild degenerative change throughout all major joint compartments. 2. Small joint effusion. CT ABD: 1. Hepatic steatosis 2. No ductal dilatation identified on this noncontrast study 3. 2 mm lower pole left renal calculus 4. Dilated renal collecting systems versus bilateral parapelvic cysts. No ureteral dilatation identified 5. No evidence of bowel obstruction. No evidence of free air 6. Diverticulosis. No evidence of acute diverticulitis AnklE Brachial Index: 1. Ankle brachial indices indicate mild to moderate small vessel and leg atherosclerotic change on the left. 2. This is considered mild on the right. CT Chest: 1. A few indeterminate solid pulmonary nodules, the largest of which is a 7 mm irregular left lower lobe nodule. These can be followed according to the attached recommendations. 2. No thoracic lymphadenopathy. 3. Increased sclerosis of multiple thoracic vertebral bodies, most notably T5- T11. Metastatic disease is considered unlikely however the findings could be correlated with PSA levels. 4. Fatty liver. Ordered Studies 07/12/18 10:59 US ankle/brachial index comp Routine 07/14/18 15:27 CT chest wo con Routine Hospital Course (1) Knee pain: (2) Right shoulder pain: (3) Rash: Patient is a 72 yr male who presents with Intermittent ANDUJAR, intermittent R shoulder and L knee pain, 2 episodes of visual disturbance and generalized weakness and rash. Pt was evaluated by PCP on 07/09/18 and was found to have rash to abdomen and lower extremities and was hypotensive in office and was referred to ER. Patient was found to have leukocytosis, elevated bilirubin and abnormal renal functions. Patient was treated for possible UTI, discharged on Keflex. Urine culture results: probable contaminants. 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 --L knee Xr ay:Mild degenerative change throughout all major joint compartments. Small joint effusion --CXR:Negative chest. --CT ABD:Hepatic steatosis. No ductal dilatation identified on this noncontrast study. 2 mm lower pole left renal calculus. Dilated renal collecting systems versus bilateral parapelvic cysts. No ureteral dilatation identified. No evidence of bowel obstruction. No evidence of free air. Diverticulosis. No evidence of acute diverticulitis --CT Chest: A few indeterminate solid pulmonary nodules, the largest of which is a 7 mm irregular left lower lobe nodule. These can be followed according to the attached recommendations. No thoracic lymphadenopathy. Increased sclerosis of multiple thoracic vertebral bodies, most notably T5-T11. Metastatic disease is considered unlikely however the findings could be correlated with PSA levels. Fatty liver. 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 This could be secondary to an infection, though if no infectious cause is found one may need to consider evaluation for a hematologic disorder. He does have a leukocytosis and left shift, but I do not see blasts or dysplastic features. Will need to keep patient warm and use blood warmers for any additional transfusions." --ESR: normal --PSA: Normal --Haptoglobin pending --LDH:350 --CRP: 5.91 --Procalcitonin:1.05 --Lyme Screen: Negative --Hepatitis panel: Negative --Immunological/Serological work up pending --Appreciate Vascular/ID/Rheumatology Input Received IV Solumedrol >>Transitioned to Prednisone 80mg daily --To continue for 2 weeks for now S/P PRBCs Started on Folic acid Needs to use Blood warmers, warm IV fluids if needs further transfusions Monitor H&H Empiric IV antibiotics will be discontinued Appreciate Oncology Input Needs Outpatient Rheumatology/Oncology Follow up upon discharge Atrial Fibrillation RVR: New diagnosis Asymptomatic Amlodipine discontinued Diltiazem infusion discontinued Continue Metoprolol Appreciate Cardiology Input Not a candidate for anticoagulation given hemolysis, anemia Needs FU with Cardiology as outpatient (4) Elevated bilirubin: Likely due to hemolysis monitor liver functions GI on board--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 Hepatitis panel negative (5) MOIRA (acute kidney injury): Resolved monitor renal functions avoid nephrotoxic agents when possible Resume lisinopril/hctz as able Received IV fluids (6) Hypomagnesemia: replace and monitor as needed (7) HTN (hypertension): Presented with hypotension in ER, improved with IVF BP stable Monitor (8) Dyslipidemia: Resume atorvastatin (9) Malignant neoplasm of prostate: H/O prostate CA s/p surgery Code Status DNR/DNI Disposition: Plan to discharge home today Total Time Total Time Spent Total Time Spent (In Minutes): 45 minutes Total Time Includes: Examination of the Patient, Discharge Planning, Medication Reconciliation, Communication With Other Providers and Other Discharge Plan Discharge Items Patient Disposition: Home - Self-Care Reason For Visit: RASH,JOINT PAIN, HYPERBILIRUBINEMIA Discharge Diagnosis: Acute Hemolytic Anemia Atrial Fibrillation Acute Kidney Injury Discharge Goals: Decrease discomfort, Improve disease control and Improve function Activity: Per 'Additional Instructions' section Exercise/Sports: Wait until after follow-up appointment Non-emergency contact: Primary Care Provider, Specialist, Bike Assembler and Oncologist Call non-emergency contact if: you have any medication questions, your symptoms worsen, your pain is not controlled, your pain is worsening, your pain is unusual for you, your pain is concerning for you, you have a fever and your temperature is above 100.5 Follow-up/Referrals: Keith Harris MD [Primary Care Provider] - Diet: Heart Healthy Addtl Provider Instructions: Follow up with your PCP on July 19, 2018 at 12:15pm Follow up with your Bike Assembler on August 09, 2018 at 1:45pm Follow up with your Auricular Acupuncturist in 1 week --Office will call you with appointment Follow up with your Bevel Mill Operator 1 week --Office will call you with appointment Get blood test next week as per the recommendations from Complete the Prednisone course as per recommendations from your specialist Seek immediate medical attention if your symptoms reoccur or worsen You may need repeat CT chest for evaluation of Pulmonary nodule noted incidentally. Discuss with your physician for further recommendations Prescriptions: New prednisone 20 mg Tablet 80 mg PO DAILY 14 Days Qty: 56 RF: 0 folic acid 1 mg Tablet 1 mg PO QAM 30 Days Qty: 30 RF: 1 metoprolol tartrate 25 mg Tablet 25 mg PO BID 30 Days Qty: 60 RF: 1 Continued multivitamin Tablet 1 tab PO DAILY RF: 0 atorvastatin 20 mg tablet 20 mg PO DAILY RF: 0 lisinopril-hydrochlorothiazide 20-12.5 mg tablet 1 tab PO BID RF: 0 pantoprazole 20 mg tablet,delayed release (DR/EC) 20 mg PO DAILY RF: 0 Excedrin Extra Strength 250-250-65 mg Tablet 1 tab PO Q6H PRN (Reason: Headache) RF: 0 omega 6-fys-nsk-fish oil [Fish Oil] 1,000 mg (120 mg-180 mg) Capsule 2 cap PO BID RF: 0 oxycodone [Roxicodone] 5 mg tablet 5 mg PO Q8H PRN (Reason: pain) Qty: 9 RF: 0 Discontinued cephalexin [Keflex] 500 mg capsule 500 mg PO BID 7 Days Qty: 14 RF: 0 Stand-Alone Forms: [facility] Discharge Orders: Discharge Order (Routine); Ordered 07/15/18 Ordered By: Weston Webster Admission Data Admit Date/Time: 07/11/18 11:13 Attending Provider: Weston Webster Admit Provider: Abhishek Mohamud Primary Care Provider: eKith Harris Other Providers: Abhishek Mohamud ; Marcos Cruz ; Srinivas Garza ; Diane Martin ; Fran Carreno ; Ariela Correa ; Shaun Jacobs ; Tamera Salamanca ; Ron Lubin ; Ji Francisco ; Tootie Coy ; Lisa Stevens ; Kia Rios ; Nina Kelly ; Katelyn Hodge ; Ck Aguilar ; Lenny Fitzpatrick ; Britany Hassan I ; Naveen Ross ; Johnson Rea Service: Telemetry Other Interventions: Discharge Summary Assessment (RN) Last Done: 07/15/18 14:33 Pending Studies at Discharge: Yes Studies:: Immunological/Serological Work Up DC Date/Time DO NOT enter until pt leaves facility: 07/15/18 15:34
[2018-07-15] MEDS ORDERED: DOXYCYCLINE HYCLATE 100 MG CAP PO SCH (19:00)
[2018-07-16 12:46] LABS: Anti Nuclear Antibody Screen NEGATIVE (NEGATIVE); Anti-Glom Basement Antibody <1.0 AI (<1.0); Anti-Neutrophil Antibody NONE DETECTED (NONE DETECTED); Anti-dsDNA Recombinant <1 IU/ML; B2 Glycoprotein IgA <9 SAU (<=20); B2 Glycoprotein IgG <9 SGU (<=20); B2 Glycoprotein IgM <9 SMU (<=20); C-Reactive Protein High Sens. >10.0 MG/L (0.0-3.0); Complement C3 78 MG/DL (82-185); Myeloperoxidase Ab <1.0 AI (<1.0); Phosphatidylserine IgG <10 U/mL (<10); Phosphatidylserine IgM <25 U/mL (<25)
--- NOTE | 2018-07-19 17:31 | Emergency Department Note ---
History of Present Illness General Chief complaint: Shoulder Pain Stated complaint: RIGHT SHOULDER,LEFT KNEE,TROUBLE BREATHING Time Seen by Provider: 07/11/18 07:49 Source: patient and family Mode of arrival: wheelchair Limitations: no limitations History of Present Illness Maximum Pain Intensity: 8 This 72-year-old white male presents with his , for reevaluation of multiple joint pains and a rash. Patient was seen here 2 days ago and had an extensive work-up for similar complaints. He was found to have an elevated bilirubin, abnormal renal function, and elevated white count. He did receive some IV hydr ation and felt better, despite no definitive diagnosis. Possibility of UTI was discussed and he was placed on Keflex as a prophylaxis. He was discharged at that time, and instructed to follow-up with his PCP. He and his state that the rash has become worse and his joint pains remain. He has developed a moderate frontal headache that has been intermittent. He is complaining of left knee pain, right shoulder pain, and generalized weakness. He denies any fevers or chills. Intermittent diaphoresis. No other cold symptoms. No prior history of similar rash. No new medications. No chest pain. He does admit to being slightly short of breath. He was found to be hypotensive in triage. Home Medications Home Medications Medication Instructions Recorded Confirmed Type Excedrin Extra Strength 1 tab PO Q6H PRN 07/09/18 07/11/18 History atorvastatin 20 mg PO DAILY 07/09/18 07/11/18 History lisinopril-hydrochlorothiazide 1 tab PO BID 07/09/18 07/11/18 History multivitamin 1 tab PO DAILY 07/09/18 07/11/18 History omega 5-hgl-huf-fish oil [Fish Oil] 2 cap PO BID 07/09/18 07/11/18 History oxycodone [Roxicodone] 5 mg PO Q8H PRN #9 tab 07/09/18 07/11/18 Rx pantoprazole 20 mg PO DAILY 07/09/18 07/11/18 History folic acid 1 mg PO QAM 30 Days #30 tab 07/15/18 Rx metoprolol tartrate 25 mg PO BID 30 Days #60 tab 07/15/18 Rx prednisone 80 mg PO DAILY 14 Days #56 tab 07/15/18 Rx Allergies Allergy/AdvReac Type Severity Reaction Status Date / Time omeprazole AdvReac Nausea Unverified 07/09/18 14:38 Past Med/Surg History Medical History Dyslipidemia (Chronic) HTN (hypertension) (Chronic) Malignant neoplasm of prostate (Chronic) s/p surgery HTN (hypertension) Hyperlipidemia Surgical History History of hemorrhoidectomy (Chronic) History of appendectomy (Chronic) History of carpal tunnel surgery of right wrist (Chronic) History of prostate surgery (Chronic) Family History Other Family history non-contributory Social History Preferred Language: Luxembourgish Communication Ability: Effective Beliefs That Will Affect Care: None marital status: Current Living Situation: Spouse current occupational status: retired Feels Safe at Home: Yes Smoking Status: Former smoker Second Hand Exposure: No Hx Alcohol Use: Yes Alcohol type: beer and wine Hx Substance Use: No Review of Systems A total of 10 systems reviewed and were otherwise negative Physical Exam General: Well-developed, well-nourished, obese elderly white male, in no acute distress. Laying on a bed. Alert and oriented. Skin: Warm and dry with good turgor. Patient has a petechial type hemorrhage rash on his toes and feet. They do not barry. He also has a similar type rash on his hands. It extends to the lower legs on both legs, but becomes more macular and purpura like. These also do not barry. The patient is not diaphoretic. No abrasions. HEENT: Normocephalic atraumatic. Eyes PERRLA, EOMI. No conjunctiva or scleral injection. Ears TMs intact bilaterally with good light reflexes. No erythema or bulging. No hemotympanum. Canals are patent. Nares patent bilaterally without turbinate enlargement. No significant drainage. No epistaxis. Orophar ynx without erythema or exudate. Uvula midline, oral mucosa moist. No lesions present. Heart: Heart RRR. No MGR. Peripheral pulses are 2+. Lungs: Lungs are clear to auscultation. No crackles rhonchi or wheezing. Good air movement. The patient is able to take a deep breath. Abdomen: Abdomen was inspected, auscultated, and palpated. Obese. Bowel sounds present x 4. Soft, nontender to palpation. No hepato-splenomegaly. No masses noted. No rebound. No CVA tenderness. Musculoskeletal: No obvious asymmetry or deformity to any of his joints. No significant intra-articular effusion. Left knee may have a mild effusion. There is no redness or warmth. Good range of motion of the shoulders, elbows, wrists, hips, knees, and ankles. He does complain of right shoulder pain with active and passive motion as well as left knee pain with active and passive motion. Right shoulder is diffusely mildly tender to touch with palpation. Nothing specifically focal. Ambulation trial was not attempted. Neurologic: Gross sensation is intact across the upper and lower extremities by soft touch. Cranial nerves II through XII are intact. DTRs are 2+ bilaterally at the patellar tendons. Course Administered Medications Discontinued Medications [facility]ip[facility] ([facility]) [facility] [place] 08/12/18 12:14 Last Admin: 07/14/18 08:22 Dose: 5 mg Documented by: [id number] Admin: 07/13/18 15:37 Dose: 5 mg Documented by: [id number] Atorvastatin Calcium (Lipitor) 20 mg PO DAILY [facility] Stop: 08/13/18 08:59 Last Admin: 07/15/18 08:52 Dose: 20 mg Documented by: [id number] Admin: 07/14/18 08:22 Dose: 20 mg Documented by: [id number] Diltiazem HCl (Cardizem) 10 mg IV NOW [facility] Stop: 07/14/18 14:29 Last Admin: 07/14/18 14:52 Dose: 10 mg Documented by: [id number] Cosigned by: [id number] Docusate Sodium (Colace) 100 mg PO BID [facility] Stop: 08/13/18 20:59 Last Admin: 07/15/18 08:52 Dose: 100 mg Documented by: [id number] Admin: 07/14/18 21:08 Dose: Not Given Documented by: [id number] Folic Acid (Folvite) 1 mg PO QAM [facility] Stop: 08/13/18 15:29 Last Admin: 07/15/18 08:51 Dose: 1 mg Documented by: [id number] Admin: 07/14/18 16:27 Dose: 1 mg Documented by: [id number] Hydromorphone HCl (Dilaudid) 0.5 mg IV NOW [facility] Stop: 07/11/18 09:37 Last Admin: 07/11/18 09:52 Dose: 0.5 mg Documented by: [id number] Hydromorphone HCl (Dilaudid) 0.5 mg IV NOW STA Stop: 07/11/18 10:46 Last Admin: 07/11/18 10:55 Dose: 0.5 mg Documented by: [id number] Hydromorphone HCl (Dilaudid) 0.5 mg IV Q4 PRN PRN Reason: Pain Stop: 07/25/18 17:10 Last Admin: 07/12/18 14:26 Dose: 0.5 mg Documented by: [id number] Admin: 07/12/18 07:45 Dose: 0.5 mg Documented by: [id number] Admin: 07/11/18 19:45 Dose: 0.5 mg Documented by: [id number] Sodium Chloride (Nss 1000ml) 1,000 mls @ 999 mls/hr IV .Q1H1M [facility] Stop: 07/11/18 09:15 Last Infusion: 07/11/18 09:58 Dose: 0 mls/hr Documented by: [id number] Admin: 07/11/18 08:53 Dose: 999 mls/hr Documented by: [id number] Cefepime HCl (Maxipime) 2,000 mg in 20 mls @ 5 mls/min IV NOW STA; Protocol Stop: 07/11/18 08:24 Last Admin: 07/11/18 08:53 Dose: 5 mls/min Documented by: [id number] Sodium Chloride (Nss 1000ml) 1,000 mls @ 999 mls/hr IV .Q1H1M ONE Stop: 07/11/18 10:36 Last Infusion: 07/11/18 13:17 Dose: 0 mls/hr Documented by: [id number] Admin: 07/11/18 09:52 Dose: 999 mls/hr Documented by: [id number] Doxycycline Hyclate 100 mg/ (Dextrose) 110 mls @ 50 mls/hr IV Q12 [facility] Stop: 07/21/18 11:59 Last Infusion: 07/15/18 11:30 Dose: 0 mls/hr Documented by: [id number] Admin: 07/15/18 08:54 Dose: 50 mls/hr Documented by: [id number] Infusion: 07/14/18 23:49 Dose: 0 mls/hr Documented by: [id number] Admin: 07/14/18 21:08 Dose: 50 mls/hr Documented by: [id number] Infusion: 07/14/18 12:05 Dose: 0 mls/hr Documented by: [id number] Admin: 07/14/18 09:35 Dose: 50 mls/hr Documented by: [id number] Infusion: 07/13/18 23:27 Dose: 0 mls/hr Documented by: [id number] Admin: 07/13/18 21:15 Dose: 50 mls/hr Documented by: [id number] Infusion: 07/13/18 10:21 Dose: 0 mls/hr Documented by: [id number] Infusion: 07/13/18 08:20 Dose: 50 mls/hr Documented by: [id number] Infusion: 07/13/18 07:55 Dose: 0 mls/hr Documented by: [id number] Admin: 07/13/18 07:44 Dose: 50 mls/hr Documented by: [id number] Infusion: 07/12/18 23:13 Dose: 0 mls/hr Documented by: [id number] Admin: 07/12/18 20:59 Dose: 50 mls/hr Documented by: [id number] Infusion: 07/12/18 14:51 Dose: 0 mls/hr Documented by: [id number] Infusion: 07/12/18 13:00 Dose: 50 mls/hr Documented by: [id number] Infusion: 07/12/18 11:10 Dose: 0 mls/hr Documented by: [id number] Admin: 07/12/18 10:48 Dose: 50 mls/hr Documented by: [id number] Infusion: 07/11/18 22:38 Dose: 0 mls/hr Documented by: [id number] Admin: 07/11/18 19:45 Dose: 50 mls/hr Documented by: [id number] Infusion: 07/11/18 13:44 Dose: 0 mls/hr Documented by: [id number] Admin: 07/11/18 11:27 Dose: 50 mls/hr Documented by: [id number] Magnesium Sulfate/Dextrose (Magnesium Sulfate / D5w) 1 gm in 100 mls @ 100 mls/hr IV Q1H [facility] Stop: 07/11/18 17:14 Last Infusion: 07/11/18 18:21 Dose: 0 mls/hr Documented by: [id number] Admin: 07/11/18 17:20 Dose: 100 mls/hr Documented by: [id number] Infusion: 07/11/18 16:51 Dose: 100 mls/hr Documented by: [id number] Admin: 07/11/18 15:51 Dose: 100 mls/hr Documented by: [id number] Cefepime HCl 2,000 mg/ Syringe 20 mls @ 5.5 mls/min IV QAM [facility]; Protocol Stop: 07/21/18 08:59 Last Admin: 07/14/18 09:56 Dose: Not Given Documented by: [id number] Admin: 07/14/18 09:34 Dose: 5.5 mls/min Documented by: [id number] Admin: 07/13/18 07:44 Dose: 5.5 mls/min Documented by: [id number] Admin: 07/12/18 09:45 Dose: 5.5 mls/min Documented by: [id number] Magnesium Sulfate/Dextrose (Magnesium Sulfate / D5w) 1 gm in 100 mls @ 100 mls/hr IV Q1H [facility] Stop: 07/12/18 08:59 Last Infusion: 07/12/18 09:45 Dose: 0 mls/hr Documented by: [id number] Admin: 07/12/18 08:45 Dose: 100 mls/hr Documented by: [id number] Infusion: 07/12/18 08:40 Dose: 0 mls/hr Documented by: [id number] Admin: 07/12/18 07:40 Dose: 100 mls/hr Documented by: [id number] Methylprednisolone 60 mg/ (Syringe) 0.96 mls @ 1.5 mls/min IV DAILY [facility] Stop: 07/13/18 09:01 Last Admin: 07/13/18 07:45 Dose: 1.5 mls/min Documented by: [id number] Admin: 07/12/18 15:39 Dose: 1.5 mls/min Documented by: [id number] Furosemide 60 mg/ Syringe 6 mls @ 4 mls/min IV ONE ONE Stop: 07/13/18 12:16 Last Admin: 07/13/18 15:37 Dose: 4 mls/min Documented by: [id number] Diltiazem HCl 125 mg/ Dextrose 125 mls @ 0 mls/hr IV .Q0M [facility]; Protocol Stop: 08/13/18 14:29 Last Titration: 07/15/18 10:35 Dose: 0 mg/hr, 0 mls/hr Documented by: [id number] Titration: 07/14/18 23:13 Dose: 5 mg/hr, 5 mls/hr Documented by: [id number] Cosigned by: [id number] Titration: 07/14/18 22:40 Dose: 5 mg/hr, 5 mls/hr Documented by: [id number] Titration: 07/14/18 21:11 Dose: 0 mg/hr, 0 mls/hr Documented by: [id number] Admin: 07/14/18 14:52 Dose: 5 mg/hr, 5 mls/hr Documented by: [id number] Cosigned by: [id number] Cefepime HCl 2,000 mg/ Syringe 20 mls @ 5.5 mls/min IV Q12H [facility]; Protocol Stop: 07/22/18 08:59 Last Admin: 07/15/18 08:53 Dose: 5.5 mls/min Documented by: [id number] Admin: 07/14/18 21:48 Dose: 5.5 mls/min Documented by: [id number] Magnesium Oxide (Mag-Ox) 400 mg PO TID [facility] Stop: 08/11/18 13:59 Last Admin: 07/15/18 14:13 Dose: 400 mg Documented by: [id number] Admin: 07/15/18 08:52 Dose: 400 mg Documented by: [id number] Admin: 07/14/18 21:09 Dose: 400 mg Documented by: [id number] Admin: 07/14/18 16:27 Dose: 400 mg Documented by: [id number] Admin: 07/14/18 08:22 Dose: 400 mg Documented by: [id number] Admin: 07/13/18 21:15 Dose: 400 mg Documented by: [id number] Admin: 07/13/18 15:38 Dose: 400 mg Documented by: [id number] Admin: 07/13/18 07:45 Dose: 400 mg Documented by: [id number] Admin: 07/12/18 20:59 Dose: 400 mg Documented by: [id number] Admin: 07/12/18 13:26 Dose: 400 mg Documented by: [id number] Metoprolol Tartrate (Lopressor) 5 mg IV Q6 PRN PRN Reason: Tachycardia Stop: 08/13/18 17:59 Last Admin: 07/14/18 13:57 Dose: 5 mg Documented by: [id number] Metoprolol Tartrate (Lopressor) Confirm Administered Dose 5 mg IV .STK-MED ONE Stop: 07/14/18 13:54 Last Admin: 07/14/18 13:59 Dose: Not Given Documented by: [id number] Metoprolol Tartrate (Lopressor) 25 mg PO BID [facility] Stop: 08/13/18 20:59 Last Admin: 07/15/18 08:53 Dose: 25 mg Documented by: [id number] Admin: 07/14/18 16:28 Dose: 25 mg Documented by: [id number] Miscellaneous (Order Awaiting Action) 1 ea N/A QS [facility] Stop: 08/10/18 15:59 Last Admin: 07/15/18 07:40 Dose: Not Given Documented by: [id number] Admin: 07/14/18 23:49 Dose: Not Given Documented by: [id number] Admin: 07/14/18 16:31 Dose: Not Given Documented by: [id number] Admin: 07/14/18 08:00 Dose: Not Given Documented by: [id number] Admin: 07/13/18 23:49 Dose: Not Given Documented by: [id number] Admin: 07/13/18 16:40 Dose: Not Given Documented by: [id number] Admin: 07/13/18 07:46 Dose: Not Given Documented by: [id number] Admin: 07/13/18 02:04 Dose: Not Given Documented by: [id number] Admin: 07/12/18 14:22 Dose: Not Given Documented by: [id number] Admin: 07/12/18 07:42 Dose: Not Given Documented by: [id number] Admin: 07/11/18 23:38 Dose: Not Given Documented by: [id number] Admin: 07/11/18 15:51 Dose: Not Given Documented by: [id number] Multivitamins (Multivitamin Tab) 1 tab PO DAILY [facility] Stop: 08/11/18 08:59 Last Admin: 07/15/18 08:52 Dose: 1 tab Documented by: [id number] Admin: 07/14/18 08:22 Dose: 1 tab Documented by: [id number] Admin: 07/13/18 07:45 Dose: 1 tab Documented by: [id number] Admin: 07/12/18 07:41 Dose: 1 tab Documented by: [id number] Oxycodone HCl (Roxicodone Immediate Rel) 5 mg PO Q8H PRN PRN Reason: pain Stop: 07/25/18 14:56 Last Admin: 07/12/18 03:55 Dose: 5 mg Documented by: [id number] Admin: 07/11/18 15:51 Dose: 5 mg Documented by: [id number] Pantoprazole Sodium (Protonix) 40 mg PO DAILY [facility] Stop: 08/11/18 08:59 Last Admin: 07/15/18 08:52 Dose: 40 mg Documented by: [id number] Admin: 07/14/18 08:22 Dose: 40 mg Documented by: [id number] Admin: 07/13/18 07:45 Dose: 40 mg Documented by: [id number] Admin: 07/12/18 07:41 Dose: 40 mg Documented by: [id number] Polyethylene Glycol (Miralax Powder Packet) 17 gm PO NOW STA Stop: 07/13/18 10:38 Last Admin: 07/13/18 10:51 Dose: 17 gm Documented by: [id number] Polyethylene Glycol (Miralax Powder Packet) 17 gm PO DAILY PRN PRN Reason: Constipation Stop: 08/13/18 12:42 Last Admin: 07/14/18 14:18 Dose: 17 gm Documented by: [id number] Prednisone (Prednisone) 80 mg PO DAILY [facility] Stop: 08/13/18 15:29 Last Admin: 07/15/18 08:52 Dose: 80 mg Documented by: [id number] Admin: 07/14/18 16:27 Dose: 80 mg Documented by: [id number] Medical Decision Making Differential Diagnosis Sepsis, ITP, viral illness, renal failure. Medical Records Attestation: I reviewed the patient's medical records. Home Medications Current Medication List: was personally reviewed by me Laboratory Data Attestation: I reviewed the patient's lab results. UA, CBC, PT/INR, and chemistry panel were obtained today. WBCs are even more elevated at 16.1. Mild anemia with an H&H of 9.2 and 25.7. Platelets remain adequate at 356. INR is normal at 1.1. Urine is dark yellow with nitrites and urobilinogen. Negative bacteria. Sodium mildly low at 133. Normal potassium and chloride. BUN is elevated at 73 with creatinine 1.75. Bilirubin is slightly improved at 2.7. Albumin is low at 2.8. Procalcitonin is elevated at 1.05. Result diagrams: 07/15/18 06:59 07/15/18 06:59 Lab Results 07/11/18 07/11/18 07/11/18 Range/Units 08:25 08:48 08:48 WBC 16.17 H (4.8-10.8) K/uL RBC 2.72 L (4.7-6.1) M/uL Hgb 9.2 L D (14.0-18.0) g/dL Hct 25.7 L (42-52) % MCV 94.5 (80-100) fL MCH 33.8 (25-34) pg MCHC 35.8 (32-36) g/dL RDW Std Deviation RDW Coeff of Daljit Plt Count 356 (130-400) K/uL MPV Immature Gran % (Auto) 1.2 % Neut % (Auto) 83.5 % Lymph % (Auto) 7.7 % [place] % (Auto) 1.8 % Eos % (Auto) 5.7 % Baso % (Auto) 0.1 % Reticulocyte % (Auto) (0.5-2.0) % Immature Gran # (Auto) 0.19 H (0.00-0.02) K/uL Neut # (Auto) 13.52 H (1.4-6.5) K/uL Lymph # (Auto) 1.24 (1.2-3.4) K/uL [place] # (Auto) 0.29 (0.11-0.59) K/uL Eos # (Auto) 0.92 H (0-0.5) K/uL Baso # (Auto) 0.01 (0-0.2) K/uL Reticulocyte # (0.02-0.10) 10^6/uL Absolute Nucleated RBC (0-0) K/uL Nucleated RBC % (auto) % Neutrophils % (Manual) Band Neutrophils % Lymphocytes % (Manual) Prolymphocyte % Reactive Lymphs % (Man) Monocytes % (Manual) Eosinophils % (Manual) Basophils % (Manual) Metamyelocytes % (Man) Myelocytes % (Man) Promyelocytes % (Man) Blast Cells % (Manual) Plasma Cell % (Manual) Other Cells % Nucleated RBC % Neutrophils # (Manual) Band Neutrophils # Total Absolute Neuts Lymphocytes # (Manual) Prolymphocyte # Reactive Lymphs # Total Abs Lymphocytes Monocytes # (Manual) Eosinophils # (Manual) Basophils # (Manual) Metamyelocytes # (Man) Myelocytes # (Manual) Promyelocytes # (Man) Blast Cells # (Man) Plasma Cell # (Manual) Other Cells # Nucleated RBCs # (Man) Hypersegmented Neuts Hyposegmented Neuts Hypogranular Neuts Large Granular Lymphs # Lrg Granular Lymphs Hairy Cells Smudge Cells Toxic Granulation Toxic Vacuolation Dohle Bodies Dylan Rods Platelet Estimate Hypogranular Platelets Clumped Platelets Giant Platelets Platelet Satelliting RBC Morphology Polychromasia Hypochromasia Poikilocytosis Basophilic Stippling Anisocytosis Microcytosis Macrocytosis Spherocytes Pappenheimer Bodies Sickle Cells Target Cells Tear Drop Cells Ovalocytes Stomatocytes Leung-Viroqua Bodies Echinocytes Acanthocytes (Spur) Rouleaux RBC Agglutinates 3+ Schistocytes RBC Morph Comment Peripher Smr Path Cons ESR (0-14) mm/hr Sezary Cell Haptoglobin (43-212) MG/DL PT 10.9 (9.0-12.0) Seconds INR 1.1 (0.9-1.1) APTT 22.8 (21.0-31.0) Seconds PTT Ratio 0.8 Sodium (136-145) mmol/L Potassium (3.5-5.1) mmol/L Chloride (98-107) mmol/L Carbon Dioxide (21-32) mmol/L Anion Gap (3-11) BUN (7-18) mg/dl Creatinine (0.6-1.4) mg/dl Est Cr Clr Drug Dosing ml/min Est GFR ( Amer) Est GFR (Non-Af Amer) BUN/Creatinine Ratio (10-20) Glucose (70-99) mg/dl Lactate (0.4-2.0) mmol/L Calcium (8.5-10.1) mg/dl Magnesium (1.8-2.4) mg/dl Total Bilirubin (0.2-1) mg/dl Direct Bilirubin (0-0.2) mg/dl AST (15-37) U/L ALT (12-78) U/L Alkaline Phosphatase (45-117) U/L Lactate Dehydrogenase (87-241) U/L Total Creatine Kinase (39-308) U/L C-Reactive Protein (0-0.29) mg/dl C-React Prot High Sens (0.0-3.0) MG/L Total Protein (6.4-8.2) gm/dl Albumin (3.4-5.0) gm/dl Globulin (2.5-4.0) gm/dl Albumin/Globulin Ratio (0.9-2) Amylase (25-115) U/L Prostate Specific Ag (0-4) ng/ml Procalcitonin (0-0.5) ng/ml Urine Color Dark Yellow Urine Appearance Clear (Clear) Urine pH 5.0 (4.5-7.5) Ur Specific [place] 1.022 (1.000-1.030) Urine Protein Negative (Negative) Urine Glucose (UA) Negative (Negative) Urine Ketones Negative (Negative) Urine Blood Negative (Negative) Urine Nitrite Positive A (Negative) Urine Bilirubin Negative (Negative) Urine Urobilinogen Positive H (Negative) Ur Leukocyte Esterase Trace H (Negative) Urine WBC (Auto) 0 (0-5) /hpf Urine RBC (Auto) 0-4 (0-4) /hpf U Hyaline Cast (Auto) 5-10 H (0-5) /lpf U Epithel Cells (Auto) 20-30 H (0-5) /lpf Urine Bacteria (Auto) Negative (Negative) ADNREA Screen (NEGATIVE) Anti-Proteinase 3 (<1.0) AI Anti-Myeloperoxidase (<1.0) AI ANCA (Negative) Anti-Neutrophil (Flow) (NONE DETECTED) Double Strand DNA Ab IU/ML Anti-Mitochondrial Ab TITER Beta-2-GPI IgG Ab (<=20) SGU Beta-2-GPI IgA Ab (<=20) DEIDRE Beta-2-GPI IgM Ab (<=20) SMU Anti-Smooth Muscle Ab TITER Glomerular Base Memb Ab (<1.0) AI Phosphatidylserine IgG (<10) U/mL Phosphatidylserine IgA (<20) U/mL Phosphatidylserine IgM (<25) U/mL Anti-Phospholipid Intrp Anti-Cardiolipin IgG Ab (<=14) GPL Anti-Cardiolipin IgA Ab (<=11) APL Anti-Cardiolipin IgM Ab (<=12) MPL Complement C3 (82-185) MG/DL Complement C4 (15-53) MG/DL Tot Complement (CH50) (31-60) U/mL Lyme Disease IgG Ab (Negative) Lyme Disease IgM Ab (Negative) Hepatitis A IgM Ab (NON-REACTIVE) Hep Bs Antigen (Neg) Hep B Core IgM Ab (NON-REACTIVE) Hepatitis C Ab Screen (Neg) Hepatitis C Antibody (Neg) Parvovirus IgG Ab Index (<0.9) Parvovirus IgM Ab Index (<0.9) Anti-Streptolysin Scrn (<200 IU/ml) IU/ml Blood Type Antibody Screen Antibody Identification Antigen Identification Direct Antiglob Test (Negative) PRINCE (IgG-AHG) (Negative) PRINCE, Polyspecific (Negative) PRINCE C3b, C3d 5 Min (Negative) Crossmatch 07/11/18 07/11/18 07/11/18 Range/Units 08:48 08:48 08:48 WBC (4.8-10.8) K/uL RBC (4.7-6.1) M/uL Hgb (14.0-18.0) g/dL Hct (42-52) % MCV (80-100) fL MCH (25-34) pg MCHC (32-36) g/dL RDW Std Deviation RDW Coeff of Daljit Plt Count (130-400) K/uL MPV Immature Gran % (Auto) % Neut % (Auto) % Lymph % (Auto) % [place] % (Auto) % Eos % (Auto) % Baso % (Auto) % Reticulocyte % (Auto) (0.5-2.0) % Immature Gran # (Auto) (0.00-0.02) K/uL Neut # (Auto) (1.4-6.5) K/uL Lymph # (Auto) (1.2-3.4) K/uL [place] # (Auto) (0.11-0.59) K/uL Eos # (Auto) (0-0.5) K/uL Baso # (Auto) (0-0.2) K/uL Reticulocyte # (0.02-0.10) 10^6/uL Absolute Nucleated RBC (0-0) K/uL Nucleated RBC % (auto) % Neutrophils % (Manual) Band Neutrophils % Lymphocytes % (Manual) Prolymphocyte % Reactive Lymphs % (Man) Monocytes % (Manual) Eosinophils % (Manual) Basophils % (Manual) Metamyelocytes % (Man) Myelocytes % (Man) Promyelocytes % (Man) Blast Cells % (Manual) Plasma Cell % (Manual) Other Cells % Nucleated RBC % Neutrophils # (Manual) Band Neutrophils # Total Absolute Neuts Lymphocytes # (Manual) Prolymphocyte # Reactive Lymphs # Total Abs Lymphocytes Monocytes # (Manual) Eosinophils # (Manual) Basophils # (Manual) Metamyelocytes # (Man) Myelocytes # (Manual) Promyelocytes # (Man) Blast Cells # (Man) Plasma Cell # (Manual) Other Cells # Nucleated RBCs # (Man) Hypersegmented Neuts Hyposegmented Neuts Hypogranular Neuts Large Granular Lymphs # Lrg Granular Lymphs Hairy Cells Smudge Cells Toxic Granulation Toxic Vacuolation Dohle Bodies Dylan Rods Platelet Estimate Hypogranular Platelets Clumped Platelets Giant Platelets Platelet Satelliting RBC Morphology Polychromasia Hypochromasia Poikilocytosis Basophilic Stippling Anisocytosis Microcytosis Macrocytosis Spherocytes Pappenheimer Bodies Sickle Cells Target Cells Tear Drop Cells Ovalocytes Stomatocytes Leung-Viroqua Bodies Echinocytes Acanthocytes (Spur) Rouleaux RBC Agglutinates Schistocytes RBC Morph Comment Peripher Smr Path Cons ESR (0-14) mm/hr Sezary Cell Haptoglobin (43-212) MG/DL PT (9.0-12.0) Seconds INR (0.9-1.1) APTT (21.0-31.0) Seconds PTT Ratio Sodium 133 L (136-145) mmol/L Potassium 4.3 (3.5-5.1) mmol/L Chloride 101 (98-107) mmol/L Carbon Dioxide 26 (21-32) mmol/L Anion Gap 6.0 (3-11) BUN 73 H D (7-18) mg/dl Creatinine 1.75 H (0.6-1.4) mg/dl Est Cr Clr Drug Dosing 45.6 ml/min Est GFR ( Amer) 43.8 Est GFR (Non-Af Amer) 37.8 BUN/Creatinine Ratio 41.7 H (10-20) Glucose 128 H (70-99) mg/dl Lactate 1.8 (0.4-2.0) mmol/L Calcium 9.8 (8.5-10.1) mg/dl Magnesium 1.2 L (1.8-2.4) mg/dl Total Bilirubin 2.7 H (0.2-1) mg/dl Direct Bilirubin (0-0.2) mg/dl AST 12 L (15-37) U/L ALT 32 (12-78) U/L Alkaline Phosphatase 78 (45-117) U/L Lactate Dehydrogenase (87-241) U/L Total Creatine Kinase (39-308) U/L C-Reactive Protein (0-0.29) mg/dl C-React Prot High Sens (0.0-3.0) MG/L Total Protein 5.5 L (6.4-8.2) gm/dl Albumin 2.8 L (3.4-5.0) gm/dl Globulin 2.7 (2.5-4.0) gm/dl Albumin/Globulin Ratio 1.0 (0.9-2) Amylase 14 L (25-115) U/L Prostate Specific Ag (0-4) ng/ml Procalcitonin 1.05 H (0-0.5) ng/ml Urine Color Urine Appearance (Clear) Urine pH (4.5-7.5) Ur Specific [place] (1.000-1.030) Urine Protein (Negative) Urine Glucose (UA) (Negative) Urine Ketones (Negative) Urine Blood (Negative) Urine Nitrite (Negative) Urine Bilirubin (Negative) Urine Urobilinogen (Negative) Ur Leukocyte Esterase (Negative) Urine WBC (Auto) (0-5) /hpf Urine RBC (Auto) (0-4) /hpf U Hyaline Cast (Auto) (0-5) /lpf U Epithel Cells (Auto) (0-5) /lpf Urine Bacteria (Auto) (Negative) ANDREA Screen (NEGATIVE) Anti-Proteinase 3 (<1.0) AI Anti-Myeloperoxidase (<1.0) AI ANCA (Negative) Anti-Neutrophil (Flow) (NONE DETECTED) Double Strand DNA Ab IU/ML Anti-Mitochondrial Ab TITER Beta-2-GPI IgG Ab (<=20) SGU Beta-2-GPI IgA Ab (<=20) DEIDRE Beta-2-GPI IgM Ab (<=20) SMU Anti-Smooth Muscle Ab TITER Glomerular Base Memb Ab (<1.0) AI Phosphatidylserine IgG (<10) U/mL Phosphatidylserine IgA (<20) U/mL Phosphatidylserine IgM (<25) U/mL Anti-Phospholipid Intrp Anti-Cardiolipin IgG Ab (<=14) GPL Anti-Cardiolipin IgA Ab (<=11) APL Anti-Cardiolipin IgM Ab (<=12) MPL Complement C3 (82-185) MG/DL Complement C4 (15-53) MG/DL Tot Complement (CH50) (31-60) U/mL Lyme Disease IgG Ab (Negative) Lyme Disease IgM Ab (Negative) Hepatitis A IgM Ab (NON-REACTIVE) Hep Bs Antigen (Neg) Hep B Core IgM Ab (NON-REACTIVE) Hepatitis C Ab Screen (Neg) Hepatitis C Antibody (Neg) Parvovirus IgG Ab Index (<0.9) Parvovirus IgM Ab Index (<0.9) Anti-Streptolysin Scrn (<200 IU/ml) IU/ml Blood Type Antibody Screen Antibody Identification Antigen Identification Direct Antiglob Test (Negative) PRINCE (IgG-AHG) (Negative) PRINCE, Polyspecific (Negative) PRINCE C3b, C3d 5 Min (Negative) Crossmatch 07/11/18 07/11/18 07/11/18 Range/Units 08:48 08:58 08:58 WBC (4.8-10.8) K/uL RBC (4.7-6.1) M/uL Hgb (14.0-18.0) g/dL Hct (42-52) % MCV (80-100) fL MCH (25-34) pg MCHC (32-36) g/dL RDW Std Deviation RDW Coeff of Daljit Plt Count (130-400) K/uL MPV Immature Gran % (Auto) % Neut % (Auto) % Lymph % (Auto) % [place] % (Auto) % Eos % (Auto) % Baso % (Auto) % Reticulocyte % (Auto) (0.5-2.0) % Immature Gran # (Auto) (0.00-0.02) K/uL Neut # (Auto) (1.4-6.5) K/uL Lymph # (Auto) (1.2-3.4) K/uL [place] # (Auto) (0.11-0.59) K/uL Eos # (Auto) (0-0.5) K/uL Baso # (Auto) (0-0.2) K/uL Reticulocyte # (0.02-0.10) 10^6/uL Absolute Nucleated RBC (0-0) K/uL Nucleated RBC % (auto) % Neutrophils % (Manual) Band Neutrophils % Lymphocytes % (Manual) Prolymphocyte % Reactive Lymphs % (Man) Monocytes % (Manual) Eosinophils % (Manual) Basophils % (Manual) Metamyelocytes % (Man) Myelocytes % (Man) Promyelocytes % (Man) Blast Cells % (Manual) Plasma Cell % (Manual) Other Cells % Nucleated RBC % Neutrophils # (Manual) Band Neutrophils # Total Absolute Neuts Lymphocytes # (Manual) Prolymphocyte # Reactive Lymphs # Total Abs Lymphocytes Monocytes # (Manual) Eosinophils # (Manual) Basophils # (Manual) Metamyelocytes # (Man) Myelocytes # (Manual) Promyelocytes # (Man) Blast Cells # (Man) Plasma Cell # (Manual) Other Cells # Nucleated RBCs # (Man) Hypersegmented Neuts Hyposegmented Neuts Hypogranular Neuts Large Granular Lymphs # Lrg Granular Lymphs Hairy Cells Smudge Cells Toxic Granulation Toxic Vacuolation Dohle Bodies Dylan Rods Platelet Estimate Hypogranular Platelets Clumped Platelets Giant Platelets Platelet Satelliting RBC Morphology Polychromasia Hypochromasia Poikilocytosis Basophilic Stippling Anisocytosis Microcytosis Macrocytosis Spherocytes Pappenheimer Bodies Sickle Cells Target Cells Tear Drop Cells Ovalocytes Stomatocytes Leung-Viroqua Bodies Echinocytes Acanthocytes (Spur) Rouleaux RBC Agglutinates Schistocytes RBC Morph Comment Peripher Smr Path Cons ESR (0-14) mm/hr Sezary Cell Haptoglobin (43-212) MG/DL PT (9.0-12.0) Seconds INR (0.9-1.1) APTT (21.0-31.0) Seconds PTT Ratio Sodium (136-145) mmol/L Potassium (3.5-5.1) mmol/L Chloride (98-107) mmol/L Carbon Dioxide (21-32) mmol/L Anion Gap (3-11) BUN (7-18) mg/dl Creatinine (0.6-1.4) mg/dl Est Cr Clr Drug Dosing ml/min Est GFR ( Amer) Est GFR (Non-Af Amer) BUN/Creatinine Ratio (10-20) Glucose (70-99) mg/dl Lactate (0.4-2.0) mmol/L Calcium (8.5-10.1) mg/dl Magnesium (1.8-2.4) mg/dl Total Bilirubin (0.2-1) mg/dl Direct Bilirubin (0-0.2) mg/dl AST (15-37) U/L ALT (12-78) U/L Alkaline Phosphatase (45-117) U/L Lactate Dehydrogenase (87-241) U/L Total Creatine Kinase (39-308) U/L C-Reactive Protein (0-0.29) mg/dl C-React Prot High Sens (0.0-3.0) MG/L Total Protein (6.4-8.2) gm/dl Albumin (3.4-5.0) gm/dl Globulin (2.5-4.0) gm/dl Albumin/Globulin Ratio (0.9-2) Amylase (25-115) U/L Prostate Specific Ag (0-4) ng/ml Procalcitonin (0-0.5) ng/ml Urine Color Urine Appearance (Clear) Urine pH (4.5-7.5) Ur Specific [place] (1.000-1.030) Urine Protein (Negative) Urine Glucose (UA) (Negative) Urine Ketones (Negative) Urine Blood (Negative) Urine Nitrite (Negative) Urine Bilirubin (Negative) Urine Urobilinogen (Negative) Ur Leukocyte Esterase (Negative) Urine WBC (Auto) (0-5) /hpf Urine RBC (Auto) (0-4) /hpf U Hyaline Cast (Auto) (0-5) /lpf U Epithel Cells (Auto) (0-5) /lpf Urine Bacteria (Auto) (Negative) ANDREA Screen (NEGATIVE) Anti-Proteinase 3 (<1.0) AI Anti-Myeloperoxidase (<1.0) AI ANCA (Negative) Anti-Neutrophil (Flow) (NONE DETECTED) Double Strand DNA Ab IU/ML Anti-Mitochondrial Ab TITER Beta-2-GPI IgG Ab (<=20) SGU Beta-2-GPI IgA Ab (<=20) DEIDRE Beta-2-GPI IgM Ab (<=20) SMU Anti-Smooth Muscle Ab TITER Glomerular Base Memb Ab (<1.0) AI Phosphatidylserine IgG (<10) U/mL Phosphatidylserine IgA (<20) U/mL Phosphatidylserine IgM (<25) U/mL Anti-Phospholipid Intrp Anti-Cardiolipin IgG Ab (<=14) GPL Anti-Cardiolipin IgA Ab (<=11) APL Anti-Cardiolipin IgM Ab (<=12) MPL Complement C3 (82-185) MG/DL Complement C4 (15-53) MG/DL Tot Complement (CH50) (31-60) U/mL Lyme Disease IgG Ab Negative (Negative) Lyme Disease IgM Ab Negative (Negative) Hepatitis A IgM Ab (NON-REACTIVE) Hep Bs Antigen Neg (Neg) Hep B Core IgM Ab (NON-REACTIVE) Hepatitis C Ab Screen Neg (Neg) Hepatitis C Antibody Neg (Neg) Parvovirus IgG Ab Index (<0.9) Parvovirus IgM Ab Index (<0.9) Anti-Streptolysin Scrn <200 IU/ml (<200 IU/ml) IU/ml Blood Type Antibody Screen Antibody Identification Antigen Identification Direct Antiglob Test (Negative) PRINCE (IgG-AHG) (Negative) PRINCE, Polyspecific (Negative) PRINCE C3b, C3d 5 Min (Negative) Crossmatch 07/11/18 07/11/18 07/12/18 Range/Units 15:49 15:49 05:20 WBC (4.8-10.8) K/uL RBC (4.7-6.1) M/uL Hgb (14.0-18.0) g/dL Hct (42-52) % MCV (80-100) fL MCH (25-34) pg MCHC (32-36) g/dL RDW Std Deviation RDW Coeff of Daljit Plt Count (130-400) K/uL MPV Immature Gran % (Auto) % Neut % (Auto) % Lymph % (Auto) % [place] % (Auto) % Eos % (Auto) % Baso % (Auto) % Reticulocyte % (Auto) (0.5-2.0) % Immature Gran # (Auto) (0.00-0.02) K/uL Neut # (Auto) (1.4-6.5) K/uL Lymph # (Auto) (1.2-3.4) K/uL [place] # (Auto) (0.11-0.59) K/uL Eos # (Auto) (0-0.5) K/uL Baso # (Auto) (0-0.2) K/uL Reticulocyte # (0.02-0.10) 10^6/uL Absolute Nucleated RBC (0-0) K/uL Nucleated RBC % (auto) % Neutrophils % (Manual) Band Neutrophils % Lymphocytes % (Manual) Prolymphocyte % Reactive Lymphs % (Man) Monocytes % (Manual) Eosinophils % (Manual) Basophils % (Manual) Metamyelocytes % (Man) Myelocytes % (Man) Promyelocytes % (Man) Blast Cells % (Manual) Plasma Cell % (Manual) Other Cells % Nucleated RBC % Neutrophils # (Manual) Band Neutrophils # Total Absolute Neuts Lymphocytes # (Manual) Prolymphocyte # Reactive Lymphs # Total Abs Lymphocytes Monocytes # (Manual) Eosinophils # (Manual) Basophils # (Manual) Metamyelocytes # (Man) Myelocytes # (Manual) Promyelocytes # (Man) Blast Cells # (Man) Plasma Cell # (Manual) Other Cells # Nucleated RBCs # (Man) Hypersegmented Neuts Hyposegmented Neuts Hypogranular Neuts Large Granular Lymphs # Lrg Granular Lymphs Hairy Cells Smudge Cells Toxic Granulation Toxic Vacuolation Dohle Bodies Dylan Rods Platelet Estimate Hypogranular Platelets Clumped Platelets Giant Platelets Platelet Satelliting RBC Morphology Polychromasia Hypochromasia Poikilocytosis Basophilic Stippling Anisocytosis Microcytosis Macrocytosis Spherocytes Pappenheimer Bodies Sickle Cells Target Cells Tear Drop Cells Ovalocytes Stomatocytes Leung-Viroqua Bodies Echinocytes Acanthocytes (Spur) Rouleaux RBC Agglutinates Schistocytes RBC Morph Comment Peripher Smr Path Cons ESR (0-14) mm/hr Sezary Cell Haptoglobin (43-212) MG/DL PT (9.0-12.0) Seconds INR (0.9-1.1) APTT (21.0-31.0) Seconds PTT Ratio Sodium 133 L (136-145) mmol/L Potassium 4.4 (3.5-5.1) mmol/L Chloride 103 (98-107) mmol/L Carbon Dioxide 25 (21-32) mmol/L Anion Gap 5.0 (3-11) BUN 84 H (7-18) mg/dl Creatinine 1.70 H (0.6-1.4) mg/dl Est Cr Clr Drug Dosing 45.8 ml/min Est GFR ( Amer) 45.4 Est GFR (Non-Af Amer) 39.1 BUN/Creatinine Ratio 49.4 H (10-20) Glucose 118 H (70-99) mg/dl Lactate (0.4-2.0) mmol/L Calcium 8.8 (8.5-10.1) mg/dl Magnesium 1.4 L (1.8-2.4) mg/dl Total Bilirubin 3.2 H (0.2-1) mg/dl Direct Bilirubin (0-0.2) mg/dl AST 11 L (15-37) U/L ALT 25 (12-78) U/L Alkaline Phosphatase 64 (45-117) U/L Lactate Dehydrogenase (87-241) U/L Total Creatine Kinase (39-308) U/L C-Reactive Protein (0-0.29) mg/dl C-React Prot High Sens >10.0 H (0.0-3.0) MG/L Total Protein 4.8 L (6.4-8.2) gm/dl Albumin 2.4 L (3.4-5.0) gm/dl Globulin 2.4 L (2.5-4.0) gm/dl Albumin/Globulin Ratio 1.0 (0.9-2) Amylase (25-115) U/L Prostate Specific Ag (0-4) ng/ml Procalcitonin (0-0.5) ng/ml Urine Color Urine Appearance (Clear) Urine pH (4.5-7.5) Ur Specific [place] (1.000-1.030) Urine Protein (Negative) Urine Glucose (UA) (Negative) Urine Ketones (Negative) Urine Blood (Negative) Urine Nitrite (Negative) Urine Bilirubin (Negative) Urine Urobilinogen (Negative) Ur Leukocyte Esterase (Negative) Urine WBC (Auto) (0-5) /hpf Urine RBC (Auto) (0-4) /hpf U Hyaline Cast (Auto) (0-5) /lpf U Epithel Cells (Auto) (0-5) /lpf Urine Bacteria (Auto) (Negative) ANDREA Screen NEGATIVE (NEGATIVE) Anti-Proteinase 3 <1.0 (<1.0) AI Anti-Myeloperoxidase <1.0 (<1.0) AI ANCA Negative (Negative) Anti-Neutrophil (Flow) NONE DETECTED (NONE DETECTED) Double Strand DNA Ab <1 IU/ML Anti-Mitochondrial Ab LESS THAN 1:20 TITER Beta-2-GPI IgG Ab <9 (<=20) SGU Beta-2-GPI IgA Ab <9 (<=20) DEIDRE Beta-2-GPI IgM Ab <9 (<=20) SMU Anti-Smooth Muscle Ab LESS THAN 1:20 TITER Glomerular Base Memb Ab <1.0 (<1.0) AI Phosphatidylserine IgG <10 (<10) U/mL Phosphatidylserine IgA <20 (<20) U/mL Phosphatidylserine IgM <25 (<25) U/mL Anti-Phospholipid Intrp see note Anti-Cardiolipin IgG Ab <14 (<=14) GPL Anti-Cardiolipin IgA Ab <11 (<=11) APL Anti-Cardiolipin IgM Ab <12 (<=12) MPL Complement C3 78 L (82-185) MG/DL Complement C4 9 L (15-53) MG/DL Tot Complement (CH50) 33 (31-60) U/mL Lyme Disease IgG Ab (Negative) Lyme Disease IgM Ab (Negative) Hepatitis A IgM Ab NON-REACTIVE (NON-REACTIVE) Hep Bs Antigen (Neg) Hep B Core IgM Ab NON-REACTIVE (NON-REACTIVE) Hepatitis C Ab Screen (Neg) Hepatitis C Antibody (Neg) Parvovirus IgG Ab Index (<0.9) Parvovirus IgM Ab Index (<0.9) Anti-Streptolysin Scrn (<200 IU/ml) IU/ml Blood Type Antibody Screen Antibody Identification Antigen Identification Direct Antiglob Test (Negative) PRINCE (IgG-AHG) (Negative) PRINCE, Polyspecific (Negative) PRINCE C3b, C3d 5 Min (Negative) Crossmatch 07/12/18 07/12/18 07/12/18 Range/Units 05:20 05:20 05:20 WBC (4.8-10.8) K/uL RBC (4.7-6.1) M/uL Hgb (14.0-18.0) g/dL Hct (42-52) % MCV (80-100) fL MCH (25-34) pg MCHC (32-36) g/dL RDW Std Deviation RDW Coeff of Daljit Plt Count (130-400) K/uL MPV Immature Gran % (Auto) % Neut % (Auto) % Lymph % (Auto) % [place] % (Auto) % Eos % (Auto) % Baso % (Auto) % Reticulocyte % (Auto) (0.5-2.0) % Immature Gran # (Auto) (0.00-0.02) K/uL Neut # (Auto) (1.4-6.5) K/uL Lymph # (Auto) (1.2-3.4) K/uL [place] # (Auto) (0.11-0.59) K/uL Eos # (Auto) (0-0.5) K/uL Baso # (Auto) (0-0.2) K/uL Reticulocyte # (0.02-0.10) 10^6/uL Absolute Nucleated RBC (0-0) K/uL Nucleated RBC % (auto) % Neutrophils % (Manual) Band Neutrophils % Lymphocytes % (Manual) Prolymphocyte % Reactive Lymphs % (Man) Monocytes % (Manual) Eosinophils % (Manual) Basophils % (Manual) Metamyelocytes % (Man) Myelocytes % (Man) Promyelocytes % (Man) Blast Cells % (Manual) Plasma Cell % (Manual) Other Cells % Nucleated RBC % Neutrophils # (Manual) Band Neutrophils # Total Absolute Neuts Lymphocytes # (Manual) Prolymphocyte # Reactive Lymphs # Total Abs Lymphocytes Monocytes # (Manual) Eosinophils # (Manual) Basophils # (Manual) Metamyelocytes # (Man) Myelocytes # (Manual) Promyelocytes # (Man) Blast Cells # (Man) Plasma Cell # (Manual) Other Cells # Nucleated RBCs # (Man) Hypersegmented Neuts Hyposegmented Neuts Hypogranular Neuts Large Granular Lymphs # Lrg Granular Lymphs Hairy Cells Smudge Cells Toxic Granulation Toxic Vacuolation Dohle Bodies Dylan Rods Platelet Estimate Hypogranular Platelets Clumped Platelets Giant Platelets Platelet Satelliting RBC Morphology Polychromasia Hypochromasia Poikilocytosis Basophilic Stippling Anisocytosis Microcytosis Macrocytosis Spherocytes Pappenheimer Bodies Sickle Cells Target Cells Tear Drop Cells Ovalocytes Stomatocytes Leung-Viroqua Bodies Echinocytes Acanthocytes (Spur) Rouleaux RBC Agglutinates Schistocytes RBC Morph Comment Peripher Smr Path Cons ESR Cancelled (0-14) mm/hr Sezary Cell Haptoglobin (43-212) MG/DL PT 11.3 (9.0-12.0) Seconds INR 1.1 (0.9-1.1) APTT (21.0-31.0) Seconds PTT Ratio Sodium (136-145) mmol/L Potassium (3.5-5.1) mmol/L Chloride (98-107) mmol/L Carbon Dioxide (21-32) mmol/L Anion Gap (3-11) BUN (7-18) mg/dl Creatinine (0.6-1.4) mg/dl Est Cr Clr Drug Dosing ml/min Est GFR ( Amer) Est GFR (Non-Af Amer) BUN/Creatinine Ratio (10-20) Glucose (70-99) mg/dl Lactate (0.4-2.0) mmol/L Calcium (8.5-10.1) mg/dl Magnesium (1.8-2.4) mg/dl Total Bilirubin (0.2-1) mg/dl Direct Bilirubin 0.9 H (0-0.2) mg/dl AST (15-37) U/L ALT (12-78) U/L Alkaline Phosphatase (45-117) U/L Lactate Dehydrogenase (87-241) U/L Total Creatine Kinase (39-308) U/L C-Reactive Protein (0-0.29) mg/dl C-React Prot High Sens (0.0-3.0) MG/L Total Protein (6.4-8.2) gm/dl Albumin (3.4-5.0) gm/dl Globulin (2.5-4.0) gm/dl Albumin/Globulin Ratio (0.9-2) Amylase (25-115) U/L Prostate Specific Ag (0-4) ng/ml Procalcitonin (0-0.5) ng/ml Urine Color Urine Appearance (Clear) Urine pH (4.5-7.5) Ur Specific [place] (1.000-1.030) Urine Protein (Negative) Urine Glucose (UA) (Negative) Urine Ketones (Negative) Urine Blood (Negative) Urine Nitrite (Negative) Urine Bilirubin (Negative) Urine Urobilinogen (Negative) Ur Leukocyte Esterase (Negative) Urine WBC (Auto) (0-5) /hpf Urine RBC (Auto) (0-4) /hpf U Hyaline Cast (Auto) (0-5) /lpf U Epithel Cells (Auto) (0-5) /lpf Urine Bacteria (Auto) (Negative) ANDREA Screen (NEGATIVE) Anti-Proteinase 3 (<1.0) AI Anti-Myeloperoxidase (<1.0) AI ANCA (Negative) Anti-Neutrophil (Flow) (NONE DETECTED) Double Strand DNA Ab IU/ML Anti-Mitochondrial Ab TITER Beta-2-GPI IgG Ab (<=20) SGU Beta-2-GPI IgA Ab (<=20) DEIDRE Beta-2-GPI IgM Ab (<=20) SMU Anti-Smooth Muscle Ab TITER Glomerular Base Memb Ab (<1.0) AI Phosphatidylserine IgG (<10) U/mL Phosphatidylserine IgA (<20) U/mL Phosphatidylserine IgM (<25) U/mL Anti-Phospholipid Intrp Anti-Cardiolipin IgG Ab (<=14) GPL Anti-Cardiolipin IgA Ab (<=11) APL Anti-Cardiolipin IgM Ab (<=12) MPL Complement C3 (82-185) MG/DL Complement C4 (15-53) MG/DL Tot Complement (CH50) (31-60) U/mL Lyme Disease IgG Ab (Negative) Lyme Disease IgM Ab (Negative) Hepatitis A IgM Ab (NON-REACTIVE) Hep Bs Antigen (Neg) Hep B Core IgM Ab (NON-REACTIVE) Hepatitis C Ab Screen (Neg) Hepatitis C Antibody (Neg) Parvovirus IgG Ab Index (<0.9) Parvovirus IgM Ab Index (<0.9) Anti-Streptolysin Scrn (<200 IU/ml) IU/ml Blood Type Antibody Screen Antibody Identification Antigen Identification Direct Antiglob Test (Negative) PRINCE (IgG-AHG) (Negative) PRINCE, Polyspecific (Negative) PRINCE C3b, C3d 5 Min (Negative) Crossmatch 07/12/18 07/12/18 07/12/18 Range/Units 05:20 05:20 13:15 WBC (4.8-10.8) K/uL RBC (4.7-6.1) M/uL Hgb (14.0-18.0) g/dL Hct (42-52) % MCV (80-100) fL MCH (25-34) pg MCHC (32-36) g/dL RDW Std Deviation RDW Coeff of Daljit Plt Count (130-400) K/uL MPV Immature Gran % (Auto) % Neut % (Auto) % Lymph % (Auto) % [place] % (Auto) % Eos % (Auto) % Baso % (Auto) % Reticulocyte % (Auto) (0.5-2.0) % Immature Gran # (Auto) (0.00-0.02) K/uL Neut # (Auto) (1.4-6.5) K/uL Lymph # (Auto) (1.2-3.4) K/uL [place] # (Auto) (0.11-0.59) K/uL Eos # (Auto) (0-0.5) K/uL Baso # (Auto) (0-0.2) K/uL Reticulocyte # (0.02-0.10) 10^6/uL Absolute Nucleated RBC (0-0) K/uL Nucleated RBC % (auto) % Neutrophils % (Manual) Band Neutrophils % Lymphocytes % (Manual) Prolymphocyte % Reactive Lymphs % (Man) Monocytes % (Manual) Eosinophils % (Manual) Basophils % (Manual) Metamyelocytes % (Man) Myelocytes % (Man) Promyelocytes % (Man) Blast Cells % (Manual) Plasma Cell % (Manual) Other Cells % Nucleated RBC % Neutrophils # (Manual) Band Neutrophils # Total Absolute Neuts Lymphocytes # (Manual) Prolymphocyte # Reactive Lymphs # Total Abs Lymphocytes Monocytes # (Manual) Eosinophils # (Manual) Basophils # (Manual) Metamyelocytes # (Man) Myelocytes # (Manual) Promyelocytes # (Man) Blast Cells # (Man) Plasma Cell # (Manual) Other Cells # Nucleated RBCs # (Man) Hypersegmented Neuts Hyposegmented Neuts Hypogranular Neuts Large Granular Lymphs # Lrg Granular Lymphs Hairy Cells Smudge Cells Toxic Granulation Toxic Vacuolation Dohle Bodies Dylan Rods Platelet Estimate Hypogranular Platelets Clumped Platelets Giant Platelets Platelet Satelliting RBC Morphology Polychromasia Hypochromasia Poikilocytosis Basophilic Stippling Anisocytosis Microcytosis Macrocytosis Spherocytes Pappenheimer Bodies Sickle Cells Target Cells Tear Drop Cells Ovalocytes Stomatocytes Leung-Viroqua Bodies Echinocytes Acanthocytes (Spur) Rouleaux RBC Agglutinates Schistocytes RBC Morph Comment Peripher Smr Path Cons ESR 2 (0-14) mm/hr Sezary Cell Haptoglobin (43-212) MG/DL PT (9.0-12.0) Seconds INR (0.9-1.1) APTT (21.0-31.0) Seconds PTT Ratio Sodium (136-145) mmol/L Potassium (3.5-5.1) mmol/L Chloride (98-107) mmol/L Carbon Dioxide (21-32) mmol/L Anion Gap (3-11) BUN (7-18) mg/dl Creatinine (0.6-1.4) mg/dl Est Cr Clr Drug Dosing ml/min Est GFR ( Amer) Est GFR (Non-Af Amer) BUN/Creatinine Ratio (10-20) Glucose (70-99) mg/dl Lactate (0.4-2.0) mmol/L Calcium (8.5-10.1) mg/dl Magnesium (1.8-2.4) mg/dl Total Bilirubin (0.2-1) mg/dl Direct Bilirubin (0-0.2) mg/dl AST (15-37) U/L ALT (12-78) U/L Alkaline Phosphatase (45-117) U/L Lactate Dehydrogenase (87-241) U/L Total Creatine Kinase 60 (39-308) U/L C-Reactive Protein (0-0.29) mg/dl C-React Prot High Sens (0.0-3.0) MG/L Total Protein (6.4-8.2) gm/dl Albumin (3.4-5.0) gm/dl Globulin (2.5-4.0) gm/dl Albumin/Globulin Ratio (0.9-2) Amylase (25-115) U/L Prostate Specific Ag (0-4) ng/ml Procalcitonin (0-0.5) ng/ml Urine Color Urine Appearance (Clear) Urine pH (4.5-7.5) Ur Specific [place] (1.000-1.030) Urine Protein (Negative) Urine Glucose (UA) (Negative) Urine Ketones (Negative) Urine Blood (Negative) Urine Nitrite (Negative) Urine Bilirubin (Negative) Urine Urobilinogen (Negative) Ur Leukocyte Esterase (Negative) Urine WBC (Auto) (0-5) /hpf Urine RBC (Auto) (0-4) /hpf U Hyaline Cast (Auto) (0-5) /lpf U Epithel Cells (Auto) (0-5) /lpf Urine Bacteria (Auto) (Negative) ANDREA Screen (NEGATIVE) Anti-Proteinase 3 (<1.0) AI Anti-Myeloperoxidase (<1.0) AI ANCA (Negative) Anti-Neutrophil (Flow) (NONE DETECTED) Double Strand DNA Ab IU/ML Anti-Mitochondrial Ab TITER Beta-2-GPI IgG Ab (<=20) SGU Beta-2-GPI IgA Ab (<=20) DEIDRE Beta-2-GPI IgM Ab (<=20) SMU Anti-Smooth Muscle Ab TITER Glomerular Base Memb Ab (<1.0) AI Phosphatidylserine IgG (<10) U/mL Phosphatidylserine IgA (<20) U/mL Phosphatidylserine IgM (<25) U/mL Anti-Phospholipid Intrp Anti-Cardiolipin IgG Ab (<=14) GPL Anti-Cardiolipin IgA Ab (<=11) APL Anti-Cardiolipin IgM Ab (<=12) MPL Complement C3 (82-185) MG/DL Complement C4 (15-53) MG/DL Tot Complement (CH50) (31-60) U/mL Lyme Disease IgG Ab (Negative) Lyme Disease IgM Ab (Negative) Hepatitis A IgM Ab (NON-REACTIVE) Hep Bs Antigen (Neg) Hep B Core IgM Ab (NON-REACTIVE) Hepatitis C Ab Screen (Neg) Hepatitis C Antibody (Neg) Parvovirus IgG Ab Index 4.7 H (<0.9) Parvovirus IgM Ab Index 0.2 (<0.9) Anti-Streptolysin Scrn (<200 IU/ml) IU/ml Blood Type Antibody Screen Antibody Identification Antigen Identification Direct Antiglob Test (Negative) PRINCE (IgG-AHG) (Negative) PRINCE, Polyspecific (Negative) PRINCE C3b, C3d 5 Min (Negative) Crossmatch 07/13/18 07/13/18 07/13/18 Range/Units 05:27 05:27 05:27 WBC 22.49 H (4.8-10.8) K/uL RBC 1.84 L (4.7-6.1) M/uL Hgb 6.3 L* (14.0-18.0) g/dL Hct 17.8 L* (42-52) % MCV 96.7 (80-100) fL MCH 34.2 H (25-34) pg MCHC 35.4 (32-36) g/dL RDW Std Deviation RDW Coeff of Daljit Plt Count 417 H (130-400) K/uL MPV Immature Gran % (Auto) 8.4 % Neut % (Auto) 72.5 % Lymph % (Auto) 10.9 % [place] % (Auto) 3.5 % Eos % (Auto) 4.5 % Baso % (Auto) 0.2 % Reticulocyte % (Auto) (0.5-2.0) % Immature Gran # (Auto) 1.89 H (0.00-0.02) K/uL Neut # (Auto) 16.32 H (1.4-6.5) K/uL Lymph # (Auto) 2.45 (1.2-3.4) K/uL [place] # (Auto) 0.78 H (0.11-0.59) K/uL Eos # (Auto) 1.01 H (0-0.5) K/uL Baso # (Auto) 0.04 (0-0.2) K/uL Reticulocyte # (0.02-0.10) 10^6/uL Absolute Nucleated RBC 0.41 H (0-0) K/uL Nucleated RBC % (auto) 1.8 % Neutrophils % (Manual) Band Neutrophils % Lymphocytes % (Manual) Prolymphocyte % Reactive Lymphs % (Man) Monocytes % (Manual) Eosinophils % (Manual) Basophils % (Manual) Metamyelocytes % (Man) Myelocytes % (Man) Promyelocytes % (Man) Blast Cells % (Manual) Plasma Cell % (Manual) Other Cells % Nucleated RBC % Neutrophils # (Manual) Band Neutrophils # Total Absolute Neuts Lymphocytes # (Manual) Prolymphocyte # Reactive Lymphs # Total Abs Lymphocytes Monocytes # (Manual) Eosinophils # (Manual) Basophils # (Manual) Metamyelocytes # (Man) Myelocytes # (Manual) Promyelocytes # (Man) Blast Cells # (Man) Plasma Cell # (Manual) Other Cells # Nucleated RBCs # (Man) Hypersegmented Neuts Hyposegmented Neuts Hypogranular Neuts Large Granular Lymphs # Lrg Granular Lymphs Hairy Cells Smudge Cells Toxic Granulation Toxic Vacuolation Dohle Bodies Dylan Rods Platelet Estimate Hypogranular Platelets Clumped Platelets Giant Platelets Platelet Satelliting RBC Morphology Polychromasia Hypochromasia Poikilocytosis Basophilic Stippling Anisocytosis Microcytosis Macrocytosis Spherocytes Pappenheimer Bodies Sickle Cells Target Cells Tear Drop Cells Ovalocytes Stomatocytes Leung-Viroqua Bodies Echinocytes Acanthocytes (Spur) Rouleaux RBC Agglutinates 3+ Schistocytes RBC Morph Comment Peripher Smr Path Cons ESR (0-14) mm/hr Sezary Cell Haptoglobin (43-212) MG/DL PT 10.9 (9.0-12.0) Seconds INR 1.1 (0.9-1.1) APTT (21.0-31.0) Seconds PTT Ratio Sodium 135 L (136-145) mmol/L Potassium 4.3 (3.5-5.1) mmol/L Chloride 105 (98-107) mmol/L Carbon Dioxide 27 (21-32) mmol/L Anion Gap 3.0 (3-11) BUN 78 H (7-18) mg/dl Creatinine 1.31 D (0.6-1.4) mg/dl Est Cr Clr Drug Dosing 59.4 ml/min Est GFR ( Amer) 62.2 Est GFR (Non-Af Amer) 53.6 BUN/Creatinine Ratio 59.7 H (10-20) Glucose 140 H (70-99) mg/dl Lactate (0.4-2.0) mmol/L Calcium 9.5 (8.5-10.1) mg/dl Magnesium (1.8-2.4) mg/dl Total Bilirubin 3.1 H (0.2-1) mg/dl Direct Bilirubin (0-0.2) mg/dl AST 13 L (15-37) U/L ALT 27 (12-78) U/L Alkaline Phosphatase 74 (45-117) U/L Lactate Dehydrogenase (87-241) U/L Total Creatine Kinase (39-308) U/L C-Reactive Protein (0-0.29) mg/dl C-React Prot High Sens (0.0-3.0) MG/L Total Protein 5.5 L (6.4-8.2) gm/dl Albumin 2.5 L (3.4-5.0) gm/dl Globulin 3.0 (2.5-4.0) gm/dl Albumin/Globulin Ratio 0.8 L (0.9-2) Amylase (25-115) U/L Prostate Specific Ag (0-4) ng/ml Procalcitonin (0-0.5) ng/ml Urine Color Urine Appearance (Clear) Urine pH (4.5-7.5) Ur Specific [place] (1.000-1.030) Urine Protein (Negative) Urine Glucose (UA) (Negative) Urine Ketones (Negative) Urine Blood (Negative) Urine Nitrite (Negative) Urine Bilirubin (Negative) Urine Urobilinogen (Negative) Ur Leukocyte Esterase (Negative) Urine WBC (Auto) (0-5) /hpf Urine RBC (Auto) (0-4) /hpf U Hyaline Cast (Auto) (0-5) /lpf U Epithel Cells (Auto) (0-5) /lpf Urine Bacteria (Auto) (Negative) ANDREA Screen (NEGATIVE) Anti-Proteinase 3 (<1.0) AI Anti-Myeloperoxidase (<1.0) AI ANCA (Negative) Anti-Neutrophil (Flow) (NONE DETECTED) Double Strand DNA Ab IU/ML Anti-Mitochondrial Ab TITER Beta-2-GPI IgG Ab (<=20) SGU Beta-2-GPI IgA Ab (<=20) DEIDRE Beta-2-GPI IgM Ab (<=20) SMU Anti-Smooth Muscle Ab TITER Glomerular Base Memb Ab (<1.0) AI Phosphatidylserine IgG (<10) U/mL Phosphatidylserine IgA (<20) U/mL Phosphatidylserine IgM (<25) U/mL Anti-Phospholipid Intrp Anti-Cardiolipin IgG Ab (<=14) GPL Anti-Cardiolipin IgA Ab (<=11) APL Anti-Cardiolipin IgM Ab (<=12) MPL Complement C3 (82-185) MG/DL Complement C4 (15-53) MG/DL Tot Complement (CH50) (31-60) U/mL Lyme Disease IgG Ab (Negative) Lyme Disease IgM Ab (Negative) Hepatitis A IgM Ab (NON-REACTIVE) Hep Bs Antigen (Neg) Hep B Core IgM Ab (NON-REACTIVE) Hepatitis C Ab Screen (Neg) Hepatitis C Antibody (Neg) Parvovirus IgG Ab Index (<0.9) Parvovirus IgM Ab Index (<0.9) Anti-Streptolysin Scrn (<200 IU/ml) IU/ml Blood Type Antibody Screen Antibody Identification Antigen Identification Direct Antiglob Test (Negative) PRINCE (IgG-AHG) (Negative) PRINCE, Polyspecific (Negative) PRINCE C3b, C3d 5 Min (Negative) Crossmatch 07/13/18 07/13/18 07/14/18 Range/Units 08:45 10:35 05:39 WBC Cancelled (4.8-10.8) K/uL RBC Cancelled (4.7-6.1) M/uL Hgb 6.8 L* Cancelled (14.0-18.0) g/dL Hct 20.0 L* Cancelled (42-52) % MCV Cancelled (80-100) fL MCH Cancelled (25-34) pg MCHC Cancelled (32-36) g/dL RDW Std Deviation Cancelled RDW Coeff of Daljit Cancelled Plt Count Cancelled (130-400) K/uL MPV Cancelled Immature Gran % (Auto) Cancelled % Neut % (Auto) Cancelled % Lymph % (Auto) Cancelled % [place] % (Auto) Cancelled % Eos % (Auto) Cancelled % Baso % (Auto) Cancelled % Reticulocyte % (Auto) (0.5-2.0) % Immature Gran # (Auto) Cancelled (0.00-0.02) K/uL Neut # (Auto) Cancelled (1.4-6.5) K/uL Lymph # (Auto) Cancelled (1.2-3.4) K/uL [place] # (Auto) Cancelled (0.11-0.59) K/uL Eos # (Auto) Cancelled (0-0.5) K/uL Baso # (Auto) Cancelled (0-0.2) K/uL Reticulocyte # (0.02-0.10) 10^6/uL Absolute Nucleated RBC Cancelled (0-0) K/uL Nucleated RBC % (auto) Cancelled % Neutrophils % (Manual) Cancelled Band Neutrophils % Cancelled Lymphocytes % (Manual) Cancelled Prolymphocyte % Cancelled Reactive Lymphs % (Man) Cancelled Monocytes % (Manual) Cancelled Eosinophils % (Manual) Cancelled Basophils % (Manual) Cancelled Metamyelocytes % (Man) Cancelled Myelocytes % (Man) Cancelled Promyelocytes % (Man) Cancelled Blast Cells % (Manual) Cancelled Plasma Cell % (Manual) Cancelled Other Cells % Cancelled Nucleated RBC % Cancelled Neutrophils # (Manual) Cancelled Band Neutrophils # Cancelled Total Absolute Neuts Cancelled Lymphocytes # (Manual) Cancelled Prolymphocyte # Cancelled Reactive Lymphs # Cancelled Total Abs Lymphocytes Cancelled Monocytes # (Manual) Cancelled Eosinophils # (Manual) Cancelled Basophils # (Manual) Cancelled Metamyelocytes # (Man) Cancelled Myelocytes # (Manual) Cancelled Promyelocytes # (Man) Cancelled Blast Cells # (Man) Cancelled Plasma Cell # (Manual) Cancelled Other Cells # Cancelled Nucleated RBCs # (Man) Cancelled Hypersegmented Neuts Cancelled Hyposegmented Neuts Cancelled Hypogranular Neuts Cancelled Large Granular Lymphs Cancelled # Lrg Granular Lymphs Cancelled Hairy Cells Cancelled Smudge Cells Cancelled Toxic Granulation Cancelled Toxic Vacuolation Cancelled Dohle Bodies Cancelled Dylan Rods Cancelled Platelet Estimate Cancelled Hypogranular Platelets Cancelled Clumped Platelets Cancelled Giant Platelets Cancelled Platelet Satelliting Cancelled RBC Morphology Cancelled Polychromasia Cancelled Hypochromasia Cancelled Poikilocytosis Cancelled Basophilic Stippling Cancelled Anisocytosis Cancelled Microcytosis Cancelled Macrocytosis Cancelled Spherocytes Cancelled Pappenheimer Bodies Cancelled Sickle Cells Cancelled Target Cells Cancelled Tear Drop Cells Cancelled Ovalocytes Cancelled Stomatocytes Cancelled Leung-[place] Bodies Cancelled Echinocytes Cancelled Acanthocytes (Spur) Cancelled Rouleaux Cancelled RBC Agglutinates Cancelled Schistocytes Cancelled RBC Morph Comment Cancelled Peripher Smr Path Cons ESR (0-14) mm/hr Sezary Cell Cancelled Haptoglobin (43-212) MG/DL PT (9.0-12.0) Seconds INR (0.9-1.1) APTT (21.0-31.0) Seconds PTT Ratio Sodium (136-145) mmol/L Potassium (3.5-5.1) mmol/L Chloride (98-107) mmol/L Carbon Dioxide (21-32) mmol/L Anion Gap (3-11) BUN (7-18) mg/dl Creatinine (0.6-1.4) mg/dl Est Cr Clr Drug Dosing ml/min Est GFR ( Amer) Est GFR (Non-Af Amer) BUN/Creatinine Ratio (10-20) Glucose (70-99) mg/dl Lactate (0.4-2.0) mmol/L Calcium (8.5-10.1) mg/dl Magnesium (1.8-2.4) mg/dl Total Bilirubin (0.2-1) mg/dl Direct Bilirubin (0-0.2) mg/dl AST (15-37) U/L ALT (12-78) U/L Alkaline Phosphatase (45-117) U/L Lactate Dehydrogenase (87-241) U/L Total Creatine Kinase (39-308) U/L C-Reactive Protein (0-0.29) mg/dl C-React Prot High Sens (0.0-3.0) MG/L Total Protein (6.4-8.2) gm/dl Albumin (3.4-5.0) gm/dl Globulin (2.5-4.0) gm/dl Albumin/Globulin Ratio (0.9-2) Amylase (25-115) U/L Prostate Specific Ag (0-4) ng/ml Procalcitonin (0-0.5) ng/ml Urine Color Urine Appearance (Clear) Urine pH (4.5-7.5) Ur Specific [place] (1.000-1.030) Urine Protein (Negative) Urine Glucose (UA) (Negative) Urine Ketones (Negative) Urine Blood (Negative) Urine Nitrite (Negative) Urine Bilirubin (Negative) Urine Urobilinogen (Negative) Ur Leukocyte Esterase (Negative) Urine WBC (Auto) (0-5) /hpf Urine RBC (Auto) (0-4) /hpf U Hyaline Cast (Auto) (0-5) /lpf U Epithel Cells (Auto) (0-5) /lpf Urine Bacteria (Auto) (Negative) ANDREA Screen (NEGATIVE) Anti-Proteinase 3 (<1.0) AI Anti-Myeloperoxidase (<1.0) AI ANCA (Negative) Anti-Neutrophil (Flow) (NONE DETECTED) Double Strand DNA Ab IU/ML Anti-Mitochondrial Ab TITER Beta-2-GPI IgG Ab (<=20) SGU Beta-2-GPI IgA Ab (<=20) DEIDRE Beta-2-GPI IgM Ab (<=20) SMU Anti-Smooth Muscle Ab TITER Glomerular Base Memb Ab (<1.0) AI Phosphatidylserine IgG (<10) U/mL Phosphatidylserine IgA (<20) U/mL Phosphatidylserine IgM (<25) U/mL Anti-Phospholipid Intrp Anti-Cardiolipin IgG Ab (<=14) GPL Anti-Cardiolipin IgA Ab (<=11) APL Anti-Cardiolipin IgM Ab (<=12) MPL Complement C3 (82-185) MG/DL Complement C4 (15-53) MG/DL Tot Complement (CH50) (31-60) U/mL Lyme Disease IgG Ab (Negative) Lyme Disease IgM Ab (Negative) Hepatitis A IgM Ab (NON-REACTIVE) Hep Bs Antigen (Neg) Hep B Core IgM Ab (NON-REACTIVE) Hepatitis C Ab Screen (Neg) Hepatitis C Antibody (Neg) Parvovirus IgG Ab Index (<0.9) Parvovirus IgM Ab Index (<0.9) Anti-Streptolysin Scrn (<200 IU/ml) IU/ml Blood Type O Positive Antibody Screen POSITIVE A Antibody Identification Non-Specific Cold Antibody Antigen Identification M Antigen - POSITIVE Direct Antiglob Test Positive A (Negative) PRINCE (IgG-AHG) Neg (Negative) PRINCE, Polyspecific 3+ A (Negative) PRINCE C3b, C3d 5 Min 3+ A (Negative) Crossmatch See Detail 07/14/18 07/14/18 07/14/18 Range/Units 05:39 06:17 09:43 WBC 27.38 H (4.8-10.8) K/uL RBC 2.42 L (4.7-6.1) M/uL Hgb 7.5 L (14.0-18.0) g/dL Hct 22.4 L (42-52) % MCV 92.6 (80-100) fL MCH 31.0 (25-34) pg MCHC 33.5 (32-36) g/dL RDW Std Deviation RDW Coeff of Daljit Plt Count 483 H (130-400) K/uL MPV 9.2 Immature Gran % (Auto) % Neut % (Auto) % Lymph % (Auto) % [place] % (Auto) % Eos % (Auto) % Baso % (Auto) % Reticulocyte % (Auto) 10.7 H (0.5-2.0) % Immature Gran # (Auto) (0.00-0.02) K/uL Neut # (Auto) (1.4-6.5) K/uL Lymph # (Auto) (1.2-3.4) K/uL [place] # (Auto) (0.11-0.59) K/uL Eos # (Auto) (0-0.5) K/uL Baso # (Auto) (0-0.2) K/uL Reticulocyte # 0.26 H (0.02-0.10) 10^6/uL Absolute Nucleated RBC 1.43 H (0-0) K/uL Nucleated RBC % (auto) 5.2 % Neutrophils % (Manual) 63.0 Band Neutrophils % Lymphocytes % (Manual) 12.0 Prolymphocyte % Reactive Lymphs % (Man) Monocytes % (Manual) 4.0 Eosinophils % (Manual) 4.0 Basophils % (Manual) Metamyelocytes % (Man) 3.0 Myelocytes % (Man) 14.0 Promyelocytes % (Man) Blast Cells % (Manual) Plasma Cell % (Manual) Other Cells % Nucleated RBC % Neutrophils # (Manual) 17.25 H Band Neutrophils # Total Absolute Neuts 17.25 H Lymphocytes # (Manual) 3.29 Prolymphocyte # Reactive Lymphs # Total Abs Lymphocytes 3.29 Monocytes # (Manual) 1.10 H Eosinophils # (Manual) 1.10 H Basophils # (Manual) Metamyelocytes # (Man) 0.82 H Myelocytes # (Manual) 3.83 H Promyelocytes # (Man) Blast Cells # (Man) Plasma Cell # (Manual) Other Cells # Nucleated RBCs # (Man) Hypersegmented Neuts Hyposegmented Neuts Hypogranular Neuts Large Granular Lymphs # Lrg Granular Lymphs Hairy Cells Smudge Cells Toxic Granulation Toxic Vacuolation Dohle Bodies Dylan Rods Platelet Estimate Hypogranular Platelets Clumped Platelets Giant Platelets Platelet Satelliting RBC Morphology Polychromasia 1+ Hypochromasia Poikilocytosis Basophilic Stippling Anisocytosis Microcytosis Macrocytosis Spherocytes Pappenheimer Bodies Sickle Cells Target Cells Tear Drop Cells Ovalocytes Stomatocytes Leung-[place] Bodies Echinocytes Acanthocytes (Spur) Rouleaux RBC Agglutinates 3+ Schistocytes RBC Morph Comment Peripher Smr Path Cons ESR (0-14) mm/hr Sezary Cell Haptoglobin (43-212) MG/DL PT (9.0-12.0) Seconds INR (0.9-1.1) APTT (21.0-31.0) Seconds PTT Ratio Sodium 139 (136-145) mmol/L Potassium 4.6 (3.5-5.1) mmol/L Chloride 108 H (98-107) mmol/L Carbon Dioxide 28 (21-32) mmol/L Anion Gap 3.0 (3-11) BUN 58 H (7-18) mg/dl Creatinine 1.20 (0.6-1.4) mg/dl Est Cr Clr Drug Dosing 67.6 ml/min Est GFR ( Amer) 69.1 Est GFR (Non-Af Amer) 59.6 BUN/Creatinine Ratio 48.5 H (10-20) Glucose 93 (70-99) mg/dl Lactate (0.4-2.0) mmol/L Calcium 9.7 (8.5-10.1) mg/dl Magnesium 2.0 (1.8-2.4) mg/dl Total Bilirubin 3.1 H (0.2-1) mg/dl Direct Bilirubin (0-0.2) mg/dl AST 31 (15-37) U/L ALT 32 (12-78) U/L Alkaline Phosphatase 91 (45-117) U/L Lactate Dehydrogenase 350 H (87-241) U/L Total Creatine Kinase (39-308) U/L C-Reactive Protein (0-0.29) mg/dl C-React Prot High Sens (0.0-3.0) MG/L Total Protein 5.7 L (6.4-8.2) gm/dl Albumin 2.6 L (3.4-5.0) gm/dl Globulin 3.1 (2.5-4.0) gm/dl Albumin/Globulin Ratio 0.8 L (0.9-2) Amylase (25-115) U/L Prostate Specific Ag (0-4) ng/ml Procalcitonin (0-0.5) ng/ml Urine Color Urine Appearance (Clear) Urine pH (4.5-7.5) Ur Specific [place] (1.000-1.030) Urine Protein (Negative) Urine Glucose (UA) (Negative) Urine Ketones (Negative) Urine Blood (Negative) Urine Nitrite (Negative) Urine Bilirubin (Negative) Urine Urobilinogen (Negative) Ur Leukocyte Esterase (Negative) Urine WBC (Auto) (0-5) /hpf Urine RBC (Auto) (0-4) /hpf U Hyaline Cast (Auto) (0-5) /lpf U Epithel Cells (Auto) (0-5) /lpf Urine Bacteria (Auto) (Negative) ANDREA Screen (NEGATIVE) Anti-Proteinase 3 (<1.0) AI Anti-Myeloperoxidase (<1.0) AI ANCA (Negative) Anti-Neutrophil (Flow) (NONE DETECTED) Double Strand DNA Ab IU/ML Anti-Mitochondrial Ab TITER Beta-2-GPI IgG Ab (<=20) SGU Beta-2-GPI IgA Ab (<=20) DEIDRE Beta-2-GPI IgM Ab (<=20) SMU Anti-Smooth Muscle Ab TITER Glomerular Base Memb Ab (<1.0) AI Phosphatidylserine IgG (<10) U/mL Phosphatidylserine IgA (<20) U/mL Phosphatidylserine IgM (<25) U/mL Anti-Phospholipid Intrp Anti-Cardiolipin IgG Ab (<=14) GPL Anti-Cardiolipin IgA Ab (<=11) APL Anti-Cardiolipin IgM Ab (<=12) MPL Complement C3 (82-185) MG/DL Complement C4 (15-53) MG/DL Tot Complement (CH50) (31-60) U/mL Lyme Disease IgG Ab (Negative) Lyme Disease IgM Ab (Negative) Hepatitis A IgM Ab (NON-REACTIVE) Hep Bs Antigen (Neg) Hep B Core IgM Ab (NON-REACTIVE) Hepatitis C Ab Screen (Neg) Hepatitis C Antibody (Neg) Parvovirus IgG Ab Index (<0.9) Parvovirus IgM Ab Index (<0.9) Anti-Streptolysin Scrn (<200 IU/ml) IU/ml Blood Type Antibody Screen Antibody Identification Antigen Identification Direct Antiglob Test (Negative) PRNICE (IgG-AHG) (Negative) PRINCE, Polyspecific (Negative) PRINCE C3b, C3d 5 Min (Negative) Crossmatch 07/14/18 07/14/18 07/14/18 Range/Units 09:43 09:43 19:27 WBC (4.8-10.8) K/uL RBC (4.7-6.1) M/uL Hgb (14.0-18.0) g/dL Hct (42-52) % MCV (80-100) fL MCH (25-34) pg MCHC (32-36) g/dL RDW Std Deviation RDW Coeff of Daljit Plt Count (130-400) K/uL MPV Immature Gran % (Auto) % Neut % (Auto) % Lymph % (Auto) % [place] % (Auto) % Eos % (Auto) % Baso % (Auto) % Reticulocyte % (Auto) (0.5-2.0) % Immature Gran # (Auto) (0.00-0.02) K/uL Neut # (Auto) (1.4-6.5) K/uL Lymph # (Auto) (1.2-3.4) K/uL [place] # (Auto) (0.11-0.59) K/uL Eos # (Auto) (0-0.5) K/uL Baso # (Auto) (0-0.2) K/uL Reticulocyte # (0.02-0.10) 10^6/uL Absolute Nucleated RBC (0-0) K/uL Nucleated RBC % (auto) % Neutrophils % (Manual) Band Neutrophils % Lymphocytes % (Manual) Prolymphocyte % Reactive Lymphs % (Man) Monocytes % (Manual) Eosinophils % (Manual) Basophils % (Manual) Metamyelocytes % (Man) Myelocytes % (Man) Promyelocytes % (Man) Blast Cells % (Manual) Plasma Cell % (Manual) Other Cells % Nucleated RBC % Neutrophils # (Manual) Band Neutrophils # Total Absolute Neuts Lymphocytes # (Manual) Prolymphocyte # Reactive Lymphs # Total Abs Lymphocytes Monocytes # (Manual) Eosinophils # (Manual) Basophils # (Manual) Metamyelocytes # (Man) Myelocytes # (Manual) Promyelocytes # (Man) Blast Cells # (Man) Plasma Cell # (Manual) Other Cells # Nucleated RBCs # (Man) Hypersegmented Neuts Hyposegmented Neuts Hypogranular Neuts Large Granular Lymphs # Lrg Granular Lymphs Hairy Cells Smudge Cells Toxic Granulation Toxic Vacuolation Dohle Bodies Dylan Rods Platelet Estimate Hypogranular Platelets Clumped Platelets Giant Platelets Platelet Satelliting RBC Morphology Polychromasia Hypochromasia Poikilocytosis Basophilic Stippling Anisocytosis Microcytosis Macrocytosis Spherocytes Pappenheimer Bodies Sickle Cells Target Cells Tear Drop Cells Ovalocytes Stomatocytes [place] Bodies Echinocytes Acanthocytes (Spur) Rouleaux RBC Agglutinates Schistocytes RBC Morph Comment Peripher Smr Path Cons ESR (0-14) mm/hr Sezary Cell Haptoglobin <8 L (43-212) MG/DL PT (9.0-12.0) Seconds INR (0.9-1.1) APTT (21.0-31.0) Seconds PTT Ratio Sodium (136-145) mmol/L Potassium (3.5-5.1) mmol/L Chloride (98-107) mmol/L Carbon Dioxide (21-32) mmol/L Anion Gap (3-11) BUN (7-18) mg/dl Creatinine (0.6-1.4) mg/dl Est Cr Clr Drug Dosing ml/min Est GFR ( Amer) Est GFR (Non-Af Amer) BUN/Creatinine Ratio (10-20) Glucose (70-99) mg/dl Lactate (0.4-2.0) mmol/L Calcium (8.5-10.1) mg/dl Magnesium (1.8-2.4) mg/dl Total Bilirubin (0.2-1) mg/dl Direct Bilirubin (0-0.2) mg/dl AST (15-37) U/L ALT (12-78) U/L Alkaline Phosphatase (45-117) U/L Lactate Dehydrogenase (87-241) U/L Total Creatine Kinase (39-308) U/L C-Reactive Protein 5.91 H (0-0.29) mg/dl C-React Prot High Sens (0.0-3.0) MG/L Total Protein (6.4-8.2) gm/dl Albumin (3.4-5.0) gm/dl Globulin (2.5-4.0) gm/dl Albumin/Globulin Ratio (0.9-2) Amylase (25-115) U/L Prostate Specific Ag < 0.010 (0-4) ng/ml Procalcitonin (0-0.5) ng/ml Urine Color Urine Appearance (Clear) Urine pH (4.5-7.5) Ur Specific [place] (1.000-1.030) Urine Protein (Negative) Urine Glucose (UA) (Negative) Urine Ketones (Negative) Urine Blood (Negative) Urine Nitrite (Negative) Urine Bilirubin (Negative) Urine Urobilinogen (Negative) Ur Leukocyte Esterase (Negative) Urine WBC (Auto) (0-5) /hpf Urine RBC (Auto) (0-4) /hpf U Hyaline Cast (Auto) (0-5) /lpf U Epithel Cells (Auto) (0-5) /lpf Urine Bacteria (Auto) (Negative) ANDREA Screen (NEGATIVE) Anti-Proteinase 3 (<1.0) AI Anti-Myeloperoxidase (<1.0) AI ANCA (Negative) Anti-Neutrophil (Flow) (NONE DETECTED) Double Strand DNA Ab IU/ML Anti-Mitochondrial Ab TITER Beta-2-GPI IgG Ab (<=20) SGU Beta-2-GPI IgA Ab (<=20) DEIDRE Beta-2-GPI IgM Ab (<=20) SMU Anti-Smooth Muscle Ab TITER Glomerular Base Memb Ab (<1.0) AI Phosphatidylserine IgG (<10) U/mL Phosphatidylserine IgA (<20) U/mL Phosphatidylserine IgM (<25) U/mL Anti-Phospholipid Intrp Anti-Cardiolipin IgG Ab (<=14) GPL Anti-Cardiolipin IgA Ab (<=11) APL Anti-Cardiolipin IgM Ab (<=12) MPL Complement C3 (82-185) MG/DL Complement C4 (15-53) MG/DL Tot Complement (CH50) (31-60) U/mL Lyme Disease IgG Ab (Negative) Lyme Disease IgM Ab (Negative) Hepatitis A IgM Ab (NON-REACTIVE) Hep Bs Antigen (Neg) Hep B Core IgM Ab (NON-REACTIVE) Hepatitis C Ab Screen (Neg) Hepatitis C Antibody (Neg) Parvovirus IgG Ab Index (<0.9) Parvovirus IgM Ab Index (<0.9) Anti-Streptolysin Scrn (<200 IU/ml) IU/ml Blood Type Antibody Screen Antibody Identification Antigen Identification Direct Antiglob Test (Negative) PRINCE (IgG-AHG) (Negative) PRINCE, Polyspecific (Negative) PRINCE C3b, C3d 5 Min (Negative) Crossmatch 07/15/18 07/15/18 Range/Units 06:59 06:59 WBC 33.95 H* (4.8-10.8) K/uL RBC 2.27 L (4.7-6.1) M/uL Hgb 7.4 L (14.0-18.0) g/dL Hct 21.3 L (42-52) % MCV 93.8 (80-100) fL MCH 32.6 (25-34) pg MCHC 34.7 (32-36) g/dL RDW Std Deviation RDW Coeff of Daljit Plt Count 531 H (130-400) K/uL MPV Immature Gran % (Auto) % Neut % (Auto) % Lymph % (Auto) % [place] % (Auto) % Eos % (Auto) % Baso % (Auto) % Reticulocyte % (Auto) (0.5-2.0) % Immature Gran # (Auto) (0.00-0.02) K/uL Neut # (Auto) (1.4-6.5) K/uL Lymph # (Auto) (1.2-3.4) K/uL [place] # (Auto) (0.11-0.59) K/uL Eos # (Auto) (0-0.5) K/uL Baso # (Auto) (0-0.2) K/uL Reticulocyte # (0.02-0.10) 10^6/uL Absolute Nucleated RBC 1.69 H (0-0) K/uL Nucleated RBC % (auto) 5.0 % Neutrophils % (Manual) 48.0 Band Neutrophils % Lymphocytes % (Manual) 26.0 Prolymphocyte % Reactive Lymphs % (Man) Monocytes % (Manual) 6.0 Eosinophils % (Manual) 9.0 Basophils % (Manual) Metamyelocytes % (Man) 3.0 Myelocytes % (Man) 8.0 Promyelocytes % (Man) Blast Cells % (Manual) Plasma Cell % (Manual) Other Cells % Nucleated RBC % Neutrophils # (Manual) 16.30 H Band Neutrophils # Total Absolute Neuts 16.30 H Lymphocytes # (Manual) 8.83 H Prolymphocyte # Reactive Lymphs # Total Abs Lymphocytes 8.83 H Monocytes # (Manual) 2.04 H Eosinophils # (Manual) 3.06 H Basophils # (Manual) Metamyelocytes # (Man) 1.02 H Myelocytes # (Manual) 2.72 H Promyelocytes # (Man) Blast Cells # (Man) Plasma Cell # (Manual) Other Cells # Nucleated RBCs # (Man) Hypersegmented Neuts Hyposegmented Neuts Hypogranular Neuts Large Granular Lymphs # Lrg Granular Lymphs Hairy Cells Smudge Cells Toxic Granulation Toxic Vacuolation Dohle Bodies Dylan Rods Platelet Estimate Hypogranular Platelets Clumped Platelets Giant Platelets Platelet Satelliting RBC Morphology Polychromasia 1+ Hypochromasia Poikilocytosis Basophilic Stippling Anisocytosis Microcytosis Macrocytosis Spherocytes Pappenheimer Bodies Sickle Cells Target Cells Tear Drop Cells Ovalocytes Stomatocytes Leung-[place] Bodies Echinocytes Acanthocytes (Spur) Rouleaux RBC Agglutinates 3+ Schistocytes RBC Morph Comment Peripher Smr Path Cons ESR (0-14) mm/hr Sezary Cell Haptoglobin (43-212) MG/DL PT (9.0-12.0) Seconds INR (0.9-1.1) APTT (21.0-31.0) Seconds PTT Ratio Sodium 138 (136-145) mmol/L Potassium 5.1 (3.5-5.1) mmol/L Chloride 107 (98-107) mmol/L Carbon Dioxide 27 (21-32) mmol/L Anion Gap 4.0 (3-11) BUN 50 H (7-18) mg/dl Creatinine 1.14 (0.6-1.4) mg/dl Est Cr Clr Drug Dosing 71.0 ml/min Est GFR ( Amer) 73.5 Est GFR (Non-Af Amer) 63.4 BUN/Creatinine Ratio 43.6 H (10-20) Glucose 122 H (70-99) mg/dl Lactate (0.4-2.0) mmol/L Calcium 9.6 (8.5-10.1) mg/dl Magnesium 1.9 (1.8-2.4) mg/dl Total Bilirubin (0.2-1) mg/dl Direct Bilirubin (0-0.2) mg/dl AST (15-37) U/L ALT (12-78) U/L Alkaline Phosphatase (45-117) U/L Lactate Dehydrogenase (87-241) U/L Total Creatine Kinase (39-308) U/L C-Reactive Protein (0-0.29) mg/dl C-React Prot High Sens (0.0-3.0) MG/L Total Protein (6.4-8.2) gm/dl Albumin (3.4-5.0) gm/dl Globulin (2.5-4.0) gm/dl Albumin/Globulin Ratio (0.9-2) Amylase (25-115) U/L Prostate Specific Ag (0-4) ng/ml Procalcitonin (0-0.5) ng/ml Urine Color Urine Appearance (Clear) Urine pH (4.5-7.5) Ur Specific [place] (1.000-1.030) Urine Protein (Negative) Urine Glucose (UA) (Negative) Urine Ketones (Negative) Urine Blood (Negative) Urine Nitrite (Negative) Urine Bilirubin (Negative) Urine Urobilinogen (Negative) Ur Leukocyte Esterase (Negative) Urine WBC (Auto) (0-5) /hpf Urine RBC (Auto) (0-4) /hpf U Hyaline Cast (Auto) (0-5) /lpf U Epithel Cells (Auto) (0-5) /lpf Urine Bacteria (Auto) (Negative) ANDREA Screen (NEGATIVE) Anti-Proteinase 3 (<1.0) AI Anti-Myeloperoxidase (<1.0) AI ANCA (Negative) Anti-Neutrophil (Flow) (NONE DETECTED) Double Strand DNA Ab IU/ML Anti-Mitochondrial Ab TITER Beta-2-GPI IgG Ab (<=20) SGU Beta-2-GPI IgA Ab (<=20) DEIDRE Beta-2-GPI IgM Ab (<=20) SMU Anti-Smooth Muscle Ab TITER Glomerular Base Memb Ab (<1.0) AI Phosphatidylserine IgG (<10) U/mL Phosphatidylserine IgA (<20) U/mL Phosphatidylserine IgM (<25) U/mL Anti-Phospholipid Intrp Anti-Cardiolipin IgG Ab (<=14) GPL Anti-Cardiolipin IgA Ab (<=11) APL Anti-Cardiolipin IgM Ab (<=12) MPL Complement C3 (82-185) MG/DL Complement C4 (15-53) MG/DL Tot Complement (CH50) (31-60) U/mL Lyme Disease IgG Ab (Negative) Lyme Disease IgM Ab (Negative) Hepatitis A IgM Ab (NON-REACTIVE) Hep Bs Antigen (Neg) Hep B Core IgM Ab (NON-REACTIVE) Hepatitis C Ab Screen (Neg) Hepatitis C Antibody (Neg) Parvovirus IgG Ab Index (<0.9) Parvovirus IgM Ab Index (<0.9) Anti-Streptolysin Scrn (<200 IU/ml) IU/ml Blood Type Antibody Screen Antibody Identification Antigen Identification Direct Antiglob Test (Negative) PRINCE (IgG-AHG) (Negative) PRINCE, Polyspecific (Negative) PRINCE C3b, C3d 5 Min (Negative) Crossmatch Imaging Data Attestation: I personally reviewed and interpreted this imaging study as follows: Blood Pressure Blood Pressure Findings: Low blood pressure MDM Narrative Patient and his were evaluated in A11. IV was established. Labs were obtained. Patient was made respiratory isolation due to his unusual nature of symptoms and presentation. Due to his extensive work-up and numerous imaging studies obtained 2 days ago, I did not think new imaging was warranted at this time. All of his previous imaging studies were reviewed during today's visit. Patient was seen in conjunction with Dr. Gómez, who also evaluated the patient and concurred with need for admission. Patient did receive cefepime 2 g IV along with multiple liters of normal sterile saline IV. Systolic blood pressure improved to the 100s. He was complaining of a continued headache. Patient was given half milligram Dilaudid IV which improved his comfort. Rash did not progress during his time in the ED. He noted that his headache i mproved and his overall weakness and discomfort improved after 2 L of fluid. [facility] was consulted for evaluation and admission. Please see that dictation for final management. Impression & Plan Petechial rash, Leukocytosis, MOIRA (acute kidney injury), Knee pain Discharge Plan Visit Data *Final* Discharge Date/Time: 07/11/18 14:42 Chief Complaint: Shoulder Pain Stated Complaint: RIGHT SHOULDER,LEFT KNEE,TROUBLE BREATHING ED Provider: Maurice Gómez ED Midlevel Provider: Oseas Silverman Discharge Problem: Petechial rash, Leukocytosis, MOIRA (acute kidney injury), Knee pain Patient Disposition: Admitted As Inpatient Discharge Instructions Interventions: ED Discharge Assessment Last Done: 07/11/18 14:42
[2018-07-19 22:52] LABS: % Cryocrit DNR; Cryoglobulin, QL Negative (Negative)
[2018-07-22 13:02] LABS: Mycoplasma pneumoniae Ab, IgG 1.44 (<=0.90); Mycoplasma pneumoniae Ab, IgM 23 U/mL (<770)
== END 2018-07-15 15:34 | disposition home or self-care (01) | DRG 809 ==
LOC: ED 07:33 → 2E 11:13 → SUATTDRO 11:13 → 2E 14:42

== ENCOUNTER 2024-06-27 19:30 | Inpatient (IN) ==
[2024-06-27 20:14] LABS: Basophils # (auto) 0.03 K/uL (0.00-0.20); Basophils % (auto) 0.5 %; Eosinophils # (auto) 0.15 K/uL (0.00-0.50); Eosinophils % (auto) 2.4 %; Hematocrit (blood only) 46.3 % (42.0-52.0); Hemoglobin 15.9 g/dl (14.0-18.0); Immature Granulocytes # (auto) 0.05 K/uL (0.01-0.20); Immature Granulocytes % (auto) 0.8 %; Lymphocytes # (auto) 1.51 K/uL (1.20-3.40); Mean Corpuscular Hemoglobin 30.1 pg (25.0-34.0); Mean Corpuscular Hgb Conc 34.3 g/dL (32.0-36.0); Mean Corpuscular Volume 87.7 fL (80.0-100.0); Mean Platelet Volume 9.2 fL (9.4-12.4); Neutrophils # (auto) 4.04 K/uL (1.40-6.50); Neutrophils % (auto) 64.3 %; Platelet Count 209 K/uL (130-400); RDW Coefficient of Variation 13.2 % (11.5-14.5); RDW Standard Deviation 42.2 fL (36.4-46.3); Red Blood Count 5.28 M/uL (4.70-6.10); White Blood Count 6.28 K/ul (4.8-10.8)
[2024-06-27 20:21] LABS: Albumin Globulin Ratio 1.7 (0.9-2); Albumin Level 4.5 gm/dl (3.4-5.0); BUN Creatinine Ratio 20.1 (10-20); Bilirubin,Total 0.7 mg/dl (0.2-1.0); Calcium 9.6 mg/dl (8.6-10.3); Creatinine Clr Calc Pharmacy 57.7 ml/min; Globulin 2.6 gm/dl (2.5-4.0); Potassium 3.9 mmol/L (3.5-5.1); Total Protein 7.1 gm/dl (6.0-8.3)
[2024-06-27] MEDS ORDERED: VANCOMYCIN CONSULT ACTIVE PRN (21:30)
[2024-06-27] MEDS: cefTRIAXone SODIUM 2,000 MG/50 ML BAG IV STA (21:50)
[2024-06-27] MEDS: PIPERACILLIN/TAZOBACTAM 4.5 GM/100 ML BAG IV ONE (21:52)
[2024-06-27] MEDS: SODIUM CHLORIDE 0.9% 1,000 ML IV ONE (21:52)
--- NOTE | 2024-06-27 22:34 | History & Physical Report ---
Date of Service June 27, 2024 Assessment & Plan (1) Cellulitis: Plan: Persistent right hand cellulitis Failed outpatient doxycycline Rx No sepsis for now A-fib on Eliquis hypertension, slightly elevated hyperlipidemia, on statin Rx GERD prostate cancer status post surgery hx acquired hemolytic anemia/cold agglutinin disease Primary hyperparathyroidism status post surgery Hyperglycemia ro DM Admit to [facility] Daptomycin and cefepime Orthopedics consult Re: Persistent right hand cellulitis N.p.o., hold Eliquis until patient seen by orthopedics in anticipation of procedure Check hemoglobin A1c DVT prophylaxis. SCDs while Eliquis on hold DNR Patient requesting updates providers. Ms. Eva Gregorio, contact #[phone]. Text document was generated using [employer] voice recognition software. It may contain grammatical or spelling errors. Kindly contact undersigned for clarification of any documentation item in question. History of Present Illness Chief Complaint: Worsening right hand swelling Primary Care Provider: Dr. Peter from [place], [place] History obtained from patient, family, and records. Medical history significant for A-fib on Eliquis, hypertension, hyperlipidemia, GERD, prostate cancer status post surgery, primary hyperparathyroidism status post surgery, hx hemolytic anemia/cold agglutinin disease. Last admission 2018 for hemolytic anemia and new onset A-fib. Patient is currently a resident of [place], [place] who is visiting family for the week. 1 month history of right hand swelling following a puncture injury of the right hand while working in his garage. Outpatient courses of antibiotics. Urgent care and ER visit in [place]. No fever, no chills. Patient ran out off doxycycline prescription 2 days ago. Worsening hand swelling. Patient brought to ER by for evaluation. 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 Allergies Allergy/AdvReac Type Severity Reaction Status Date / Time omeprazole AdvReac Nausea Verified 07/20/18 09:42 Home Medications Medication Instructions Recorded Confirmed Type atorvastatin 20 mg tablet 20 mg PO DAILY 07/09/18 06/27/24 History multivitamin 1 tab PO DAILY 07/09/18 06/27/24 History omega 9-sdr-zrt-fish oil 1,000 mg 2 cap PO BID 07/09/18 06/27/24 History (120 mg-180 mg) capsule (Fish Oil) amlodipine 5 mg tablet 5 mg PO DAILY 06/27/24 06/27/24 History amoxicillin 500 mg capsule 2,000 mg PO ONCE PRN dental 06/27/24 06/27/24 History apixaban 5 mg tablet (Eliquis) 5 mg PO DAILY 06/27/24 06/27/24 History ascorbic acid (vitamin C) 1,000 mg 1 g PO DAILY 06/27/24 06/27/24 History tablet (Vitamin C) cholecalciferol (vitamin D3) 25 25 mcg PO DAILY 06/27/24 06/27/24 History mcg (1,000 unit) capsule (Vitamin D3) cyanocobalamin (vitamin B-12) 1,000 mcg IM DIRECTED 06/27/24 06/27/24 History 1,000 mcg/mL injection solution folic acid 1 mg tablet 1 mg PO DAILY 06/27/24 06/27/24 History lisinopril 20 1 tab PO DAILY 06/27/24 06/27/24 History mg-hydrochlorothiazide 12.5 mg tablet metoprolol tartrate 25 mg tablet 25 mg PO BID 06/27/24 06/27/24 History Past Med/Surg History Problem List Redness and swelling of hand Cellulitis Cellulitis of dorsum of hand (Acute) Petechial rash (Acute) Hemolytic anemia Atrial fibrillation with RVR Leukocytosis (Acute) Extremity cyanosis Hypomagnesemia MOIRA (acute kidney injury) (Acute) Knee pain (Acute) History of hemorrhoidectomy (Chronic) History of appendectomy (Chronic) History of carpal tunnel surgery of right wrist (Chronic) History of prostate surgery (Chronic) Dyslipidemia (Chronic) HTN (hypertension) (Chronic) Malignant neoplasm of prostate (Chronic) s/p surgery Medical History Hyperlipidemia HTN (hypertension) Family History Other Family history non-contributory Social History Smoking Status: Former smoker Tobacco Type: Cigarettes Second Hand Exposure: No; Do You Dip or Chew Tobacco: No; Tobacco Cessation Education Requested by Patient: No Hx Alcohol Use: Yes Alcohol type: beer and wine Hx Substance Use: No Preferred Language: Hebrew Communication Ability: Effective Preschool Assistant Director Required: No Beliefs That Will Affect Care: None marital status: Current Living Situation: Spouse current occupational status: retired Other Information That Helps Us Care for You: No Feels Safe at Home: Yes Safety Concerns: Feels Safe At This Time Assistive Devices: Glasses and Hospital Bed Review of Systems Review of Systems: As per HPI, all other systems reviewed and negative Physical Exam Physical Exam: GENERAL: Comfortable, pleasant, morbidly obese, slightly hard of hearing, no respiratory distress SKIN: Normal color, warm HEENT: bespectacled, pink palpebral conjunctivae, no ptosis, dry buccal mucosa NECK : Supple, no tenderness CHEST : CTA, no tenderness HEART : RRR, no obvious murmurs ABDOMEN: Some distention, nontender EXTREMITIES : Tender right hand induration, minimal LE swelling without LE te nderness, palpable pulses, no other conspicuous deformities noted NEUROLOGIC : Coherent, no facial asymmetry, no other gross focality Results & Data Results & Data Vital Signs (Past 12 Hours) Vital Signs Temp Pulse Pulse Resp BP BP Pulse Ox 06/27/24 21:00 76 18 158/100 H 98 06/27/24 19:32 36.8 C 75 18 153/101 H 98 O2 Del Method 06/27/24 21:00 Room Air 06/27/24 19:32 Room Air Laboratory Results Laboratory Results WBC 6.28 K/ul (4.8-10.8) 06/27/24 19:50 RBC 5.28 M/uL (4.70-6.10) 06/27/24 19:50 Hgb 15.9 g/dl (14.0-18.0) 06/27/24 19:50 Hct 46.3 % (42.0-52.0) 06/27/24 19:50 MCV 87.7 fL (80.0-100.0) 06/27/24 19:50 MCH 30.1 pg (25.0-34.0) 06/27/24 19:50 MCHC 34.3 g/dL (32.0-36.0) 06/27/24 19:50 RDW Std Deviation 42.2 fL (36.4-46.3) 06/27/24 19:50 RDW Coeff of Daljit 13.2 % (11.5-14.5) 06/27/24 19:50 Plt Count 209 K/uL (130-400) 06/27/24 19:50 MPV 9.2 fL (9.4-12.4) L 06/27/24 19:50 Immature Gran % (Auto) 0.8 % 06/27/24 19:50 Neut % (Auto) 64.3 % 06/27/24 19:50 Lymph % (Auto) 24.0 % 06/27/24 19:50 [place] % (Auto) 8.0 % 06/27/24 19:50 Eos % (Auto) 2.4 % 06/27/24 19:50 Baso % (Auto) 0.5 % 06/27/24 19:50 Neut # (Auto) 4.04 K/uL (1.40-6.50) 06/27/24 19:50 Lymph # (Auto) 1.51 K/uL (1.20-3.40) 06/27/24 19:50 [place] # (Auto) 0.50 K/uL (0.11-0.59) 06/27/24 19:50 Eos # (Auto) 0.15 K/uL (0.00-0.50) 06/27/24 19:50 Baso # (Auto) 0.03 K/uL (0.00-0.20) 06/27/24 19:50 Immature Gran # (Auto) 0.05 K/uL (0.01-0.20) 06/27/24 19:50 Sodium 139 mmol/L (136-145) 06/27/24 19:50 Potassium 3.9 mmol/L (3.5-5.1) 06/27/24 19:50 Chloride 100 mmol/L (98-107) 06/27/24 19:50 Carbon Dioxide 33 mmol/L (21-32) H 06/27/24 19:50 Anion Gap 6 (3-11) 06/27/24 19:50 BUN 27 mg/dl (6-23) H 06/27/24 19:50 Creatinine 1.34 mg/dl (0.6-1.4) 06/27/24 19:50 Est Cr Clr Drug Dosing 57.7 ml/min 06/27/24 19:50 eGFR 53.89 06/27/24 19:50 BUN/Creatinine Ratio 20.1 (10-20) H 06/27/24 19:50 Glucose 114 mg/dl (70-99(Fasting)) H 06/27/24 19:50 Calcium 9.6 mg/dl (8.6-10.3) 06/27/24 19:50 Total Bilirubin 0.7 mg/dl (0.2-1.0) 06/27/24 19:50 AST 28 U/L (13-39) 06/27/24 19:50 ALT 22 U/L (7-52) 06/27/24 19:50 Alkaline Phosphatase 106 U/L (34-104) H 06/27/24 19:50 Total Protein 7.1 gm/dl (6.0-8.3) 06/27/24 19:50 Albumin 4.5 gm/dl (3.4-5.0) 06/27/24 19:50 Globulin 2.6 gm/dl (2.5-4.0) 06/27/24 19:50 Albumin/Globulin Ratio 1.7 (0.9-2) 06/27/24 19:[address]: 1. Thickening of the skin, subcutaneous soft tissue is noted involving the right hand extending from the level of distal carpal row up to the shafts of proximal phalanges as described above. This may represent infective/inflammatory cellulitis. Suggested clinical /lab correlation. 2. Mild subcutaneous fat stranding is noted involving the visualized portion of the distal forearm and hand, predominantly along the dorsal aspect. 3. Soft tissue calcification is noted at the level of triangular fibrocartilaginous complex. Similar calcification is also noted at the level of scapholunate interval and the radio carpal joints. 4. Early osteoarthritic changes in the form of subchondral cysts and sclerosis, asymmetric joint space reduction are noted at the level of 2nd, 3rd, fourth metacarpophalangeal joints. 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 Other possibility is underlying chronic renal disorder. Suggested clinical/lab correlation.
[2024-06-27] MEDS: VANCOMYCIN HCL 2,750 MG in SODIUM CHLORIDE 0.9% 500 ML IV ONE (22:42)
--- NOTE | 2024-06-27 23:11 | Emergency Department Note ---
Impression & Plan Cellulitis of dorsum of hand ED Provider Note NAME: JALEN FREEMAN AGE: 78 SEX: M : 1945 ARRIVES VIA: Walk-In INFORMANT: Patient, ED PROVIDER(S): Monster Browne MD CHIEF COMPLAINT: Right hand swelling, redness HPI: This is a 78-year-old male presenting for right hand redness/swelling. Patient has had this swelling/redness to his hand for over 4 weeks at this time. He was seen by urgent care twice as well as an ER. He notes that he was trialed on multiple different antibiotics and the swelling has persisted. It did decline somewhat but then worsened over the past 2 days which is why he is getting evaluated. He was seen at 2 different urgent care and started on cephalexin and Bactrim. He just finished a 2-week course of clindamycin. He notes his redness has not improved. It is painful. Just tight. He is on the dorsal aspect. No palmar involvement. ROS: See above HPI for pertinent positives & negatives. A total of 10 systems reviewed and were otherwise negative. PAST MEDICAL HISTORY: See Below PAST SURGICAL HISTORY: See Below FAMILY HISTORY: See Below SOCIAL HISTORY: See Below HOME MEDICATIONS: See Below ALLERGIES: See Below VITALS: See Below PHYSICAL EXAMINATION: General: resting comfortably in no acute distress Head: Normocephalic and atraumatic Eyes: Normal inspection, extraocular muscles intact Ear, nose, throat: Normal external exam Neck: Normal range of motion Respiratory: speaking in full sentences, symmetric chest rise, no respiratory distress Cardiovascular: Regular rate/rhythm Extremities: moves all extremities Neuro: The patient awake and alert, appropriately conversive, symmetric faces, no focal deficits Skin: Right dorsal hand with erythema, warmth, tenderness MEDICAL DECISION MAKING: This is a 78-year-old male with a right hand redness/swelling. Patient has a likely cellulitis of the right dorsal aspect of the hand. There is no palmar involvement. No signs of flexor tenosynovitis. With over 4 weeks of antibiotic treatment will admit for IV antibiotics at this time. Does not appear septic - Bloodwork is reviewed showing no significant leukocytosis, anemia, electrolyte or creatinine abnormality Differential diagnosis: Cellulitis, flexor tenosynovitis, Independent History obtained from: Diagnostics interpreted by me: ECG: None Cardiac Monitoring: An order was placed for continuous cardiac monitoring. The monitor shows a rate of 77 with sinus rhythm. Past Med/Surg History Problem List (Updated 06/28/24 @ 00:55 by Monster Browne MD) Cellulitis of dorsum of hand (Acute) Petechial rash (Acute) Hemolytic anemia Atrial fibrillation with RVR Leukocytosis (Acute) Extremity cyanosis Hypomagnesemia MOIRA (acute kidney injury) (Acute) Knee pain (Acute) History of hemorrhoidectomy (Chronic) History of appendectomy (Chronic) History of carpal tunnel surgery of right wrist (Chronic) History of prostate surgery (Chronic) Dyslipidemia (Chronic) HTN (hypertension) (Chronic) Malignant neoplasm of prostate (Chronic) s/p surgery Medical History (Updated 06/28/24 @ 00:55 by Monster Browne MD) Hyperlipidemia HTN (hypertension) Family History Other Family history non-contributory Social History Smoking Status: Former smoker Second Hand Exposure: No; Do You Dip or Chew Tobacco: No; Hx Alcohol Use: Yes Alcohol type: beer and wine Hx Substance Use: No Preferred Language: Tuvaluan Communication Ability: Effective Tube Depatcher Required: No Beliefs That Will Affect Care: None marital status: Current Living Situation: Spouse current occupational status: retired Feels Safe at Home: Yes Assistive Devices: None Allergies Allergies Allergy/AdvReac Type Severity Reaction Status Date / Time omeprazole AdvReac Nausea Verified 07/20/18 09:42 Home Meds Home Medications Medication Instructions Recorded Confirmed atorvastatin 20 mg tablet 20 mg PO DAILY 07/09/18 06/27/24 multivitamin 1 tab PO DAILY 07/09/18 06/27/24 omega 2-snh-ymy-fish oil 1,000 mg 2 cap PO BID 07/09/18 06/27/24 (120 mg-180 mg) capsule (Fish Oil) amlodipine 5 mg tablet 5 mg PO DAILY 06/27/24 06/27/24 amoxicillin 500 mg capsule 2,000 mg PO ONCE PRN dental 06/27/24 06/27/24 apixaban 5 mg tablet (Eliquis) 5 mg PO DAILY 04/21/25 04/21/25 ascorbic acid (vitamin C) 1,000 mg 1 g PO DAILY 06/27/24 06/27/24 tablet (Vitamin C) cholecalciferol (vitamin D3) 25 25 mcg PO DAILY 06/27/24 06/27/24 mcg (1,000 unit) capsule (Vitamin D3) cyanocobalamin (vitamin B-12) 1,000 mcg IM DIRECTED 06/27/24 06/27/24 1,000 mcg/mL injection solution folic acid 1 mg tablet 1 mg PO DAILY 06/27/24 06/27/24 lisinopril 20 1 tab PO DAILY 06/27/24 06/27/24 mg-hydrochlorothiazide 12.5 mg tablet metoprolol tartrate 25 mg tablet 25 mg PO BID 06/27/24 06/27/24 Results & Data (ED) Vital Signs Vital Signs - 24 hr 06/27/24 19:32 06/27/24 21:00 06/27/24 23:30 Temperature 36.8 C Temperature Source Oral Pulse Rate 75 Pulse Rate [Right Finger] 76 77 Respiratory Rate 18 18 18 Respiratory Effort / Characteristics Non-Labored Spontaneous Respiratory Depth Normal Normal Respiratory Pattern Regular Blood Pressure 153/101 H Blood Pressure [Left Arm] 158/100 H 109/55 L Blood Pressure Mean 118 Blood Pressure Mean [Left Arm] 119 73 Pulse Oximetry 98 98 99 Oxygen Delivery Method Room Air Room Air Room Air Sepsis Recent Fever Within 48 Hours No Sepsis New/Unexplained Change in Mental Status N/A Sepsis Action Taken by Nursing No Action Required Laboratory Data 06/27/24 19:50 06/27/24 19:50 Lab Results 06/27/24 Range/Units 19:50 WBC 6.28 (4.8-10.8) K/ul RBC 5.28 (4.70-6.10) M/uL Hgb 15.9 (14.0-18.0) g/dl Hct 46.3 (42.0-52.0) % MCV 87.7 (80.0-100.0) fL MCH 30.1 (25.0-34.0) pg MCHC 34.3 (32.0-36.0) g/dL RDW Std Deviation 42.2 (36.4-46.3) fL RDW Coeff of Daljit 13.2 (11.5-14.5) % Plt Count 209 (130-400) K/uL MPV 9.2 L (9.4-12.4) fL Immature Gran % (Auto) 0.8 % Neut % (Auto) 64.3 % Lymph % (Auto) 24.0 % [place] % (Auto) 8.0 % Eos % (Auto) 2.4 % Baso % (Auto) 0.5 % Neut # (Auto) 4.04 (1.40-6.50) K/uL Lymph # (Auto) 1.51 (1.20-3.40) K/uL [place] # (Auto) 0.50 (0.11-0.59) K/uL Eos # (Auto) 0.15 (0.00-0.50) K/uL Baso # (Auto) 0.03 (0.00-0.20) K/uL Immature Gran # (Auto) 0.05 (0.01-0.20) K/uL Sodium 139 (136-145) mmol/L Potassium 3.9 (3.5-5.1) mmol/L Chloride 100 (98-107) mmol/L Carbon Dioxide 33 H (21-32) mmol/L Anion Gap 6 (3-11) BUN 27 H (6-23) mg/dl Creatinine 1.34 (0.6-1.4) mg/dl Est Cr Clr Drug Dosing 57.7 ml/min eGFR 53.89 BUN/Creatinine Ratio 20.1 H (10-20) Glucose 114 H (70-99(Fasting)) mg/dl Calcium 9.6 (8.6-10.3) mg/dl Total Bilirubin 0.7 (0.2-1.0) mg/dl AST 28 (13-39) U/L ALT 22 (7-52) U/L Alkaline Phosphatase 106 H (34-104) U/L Total Protein 7.1 (6.0-8.3) gm/dl Albumin 4.5 (3.4-5.0) gm/dl Globulin 2.6 (2.5-4.0) gm/dl Albumin/Globulin Ratio 1.7 (0.9-2) Administered Medications Sodium Chloride (Nss) 1,000 mls @ 60 mls/hr IV .[id number] ONE Stop: 06/28/24 14:13 Last Admin: 06/27/24 21:52 Dose: 60 mls/hr Documented By: Discontinued Medications Vancomycin HCl 2,750 mg/ (Sodium Chloride) 555 mls @ 200 mls/hr IV NOW ONE Stop: 06/28/24 00:16 Last Admin: 06/27/24 22:42 Dose: 200 mls/hr Documented By: Ceftriaxone Sodium (Rocephin) 2,000 mg in 50 mls @ 100 mls/hr IV NOW STA Stop: 06/27/24 21:59 Last Admin: 06/27/24 21:50 Dose: Not Given Documented By: Piperacillin Sod/Tazobactam Sod (Zosyn) 4.5 gm in 100 mls @ 200 mls/hr IV NOW ONE; Protocol Stop: 06/27/24 22:03 Last Infusion: 06/27/24 22:33 Dose: Infused Documented By: Admin: 06/27/24 21:52 Dose: 200 mls/hr Documented By: Discharge Plan Visit Data Chief Complaint: Skin Problem Stated Complaint: CELLULITIS ED Provider: Monster Browne Discharge Problem: Cellulitis of dorsum of hand Forms Stand Alone Forms: My [facility] Prescriptions Prescriptions: No Action multivitamin Tablet 1 tab PO DAILY atorvastatin 20 mg tablet 20 mg PO DAILY omega 8-hoi-bgg-fish oil [Fish Oil] 1,000 mg (120 mg-180 mg) Capsule 2 cap PO BID amoxicillin 500 mg Capsule 2,000 mg PO ONCE PRN (Reason: dental) ascorbic acid (vitamin C) [Vitamin C] 1,000 mg Tablet 1 g PO DAILY lisinopril-hydrochlorothiazide 20-12.5 mg tablet 1 tab PO DAILY amlodipine 5 mg tablet 5 mg PO DAILY cyanocobalamin (vitamin B-12) [Cyanacobalamin] 1,000 mcg/mL Solution 1,000 mcg IM DIRECTED Rx Instructions: twice a month folic acid 1 mg tablet 1 mg PO DAILY cholecalciferol (vitamin D3) [Vitamin D3] 25 mcg (1,000 unit) Capsule 25 mcg PO DAILY metoprolol tartrate 25 mg tablet 25 mg PO BID Eliquis 5 mg tablet 5 mg PO DAILY Referrals Referrals: PCP,NO [Primary Care Provider] -
[2024-06-28] MEDS ORDERED: oxyCODONE HCL IR 5 MG TAB (IMMEDIATE RELEASE) PO PRN (00:14)
[2024-06-28] MEDS ORDERED: PROMETHAZINE 6.25 MG/50.25 ML BAG IV PRN (00:14)
[2024-06-28] MEDS: OPTIRAY 320 100ml IV ONE (00:55)
[2024-06-28] MEDS: amLODIPine BESYLATE 5 MG TAB PO SCH (01:14)
[2024-06-28] MEDS: CALAMINE/PRAMOXINE LOTION 180 APPLN/180 ML BTL EXT PRN (01:56)
--- NOTE | 2024-06-28 02:08 | CT Scan Report ---
EXAM: CT hand RT w con CLINICAL HISTORY: swelling TECHNIQUE: Contiguous axial CT images of right hand were obtained with intravenous contrast. Coronal and sagittal reconstructions were likewise performed and indicated to increase the sensitivity for detecting clinically relevant pathology. CT scan was performed according to ALARA (as low as reasonably achievable). COMPARISON: None. FINDINGS: Early osteoarthritic changes in the form of subchondral cysts and sclerosis, asymmetric joint space reduction are noted at the level of 2nd, 3rd, fourth metacarpophalangeal joints. Thickening of the skin, subcutaneous soft tissue is noted involving the right hand extending from the level of distal carpal row up to the shafts of proximal phalanges of 2nd, 3rd, fourth and fifth fingers. Maximum thickness of the soft tissue measures 7.5 mm. Mild subcutaneous fat stranding is noted involving the visualized portion of the distal forearm and hand, predominantly along the dorsal aspect. No acute fracture or dislocation. No significant joint effusion. Soft tissue calcification is noted at the level of triangular fibrocartilaginous complex. Similar calcification is also noted at the level of scapholunate interval and the radio carpal joints. No destructive osseous lesion. No cortical destruction to suggest osteomyelitis. No abscess formation. The visualized muscles and tendons appear grossly unremarkable. IMPRESSION: 1. Thickening of the skin, subcutaneous soft tissue is noted involving the right hand extending from the level of distal carpal row up to the shafts of proximal phalanges as described above. This may represent infective/inflammatory cellulitis. Suggested clinical /lab correlation. 2. Mild subcutaneous fat stranding is noted involving the visualized portion of the distal forearm and hand, predominantly along the dorsal aspect. 3. Soft tissue calcification is noted at the level of triangular fibrocartilaginous complex. Similar calcification is also noted at the level of scapholunate interval and the radio carpal joints. 4. Early osteoarthritic changes in the form of subchondral cysts and sclerosis, asymmetric joint space reduction are noted at the level of 2nd, 3rd, fourth metacarpophalangeal joints. 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 Other possibility is underlying chronic renal disorder. Suggested clinical/lab correlation. Electronically signed by Balaji Babb 06-28-2024 02:08 AM
[2024-06-28] MEDS: CEFEPIME 2000MG 2,000 MG/20 ML SYR IV SCH (05:29)
[2024-06-28] MEDS: DAPTOmycin 500 MG in SYRINGE 0 ML IV SCH (05:29)
[2024-06-28] MEDS: ACETAMINOPHEN 325 MG TAB PO PRN (05:35)
[2024-06-28 07:39] LABS: Basophils # (auto) 0.03 K/uL (0.00-0.20); Basophils % (auto) 0.4 %; Eosinophils # (auto) 0.12 K/uL (0.00-0.50); Eosinophils % (auto) 1.7 %; Hematocrit (blood only) 41.8 % (42.0-52.0); Hemoglobin 14.6 g/dl (14.0-18.0); Immature Granulocytes # (auto) 0.05 K/uL (0.01-0.20); Immature Granulocytes % (auto) 0.7 %; Lymphocytes # (auto) 0.84 K/uL (1.20-3.40); Lymphocytes % (auto) 11.7 %; Mean Corpuscular Hgb Conc 34.9 g/dL (32.0-36.0); Mean Platelet Volume 9.2 fL (9.4-12.4); Monocytes # (auto) 0.45 K/uL (0.11-0.59); Monocytes % (auto) 6.3 %; Neutrophils # (auto) 5.67 K/uL (1.40-6.50); Neutrophils % (auto) 79.2 %; Platelet Count 175 K/uL (130-400); RDW Coefficient of Variation 13.1 % (11.5-14.5); RDW Standard Deviation 40.4 fL (36.4-46.3); Red Blood Count 4.86 M/uL (4.70-6.10); White Blood Count 7.16 K/ul (4.8-10.8)
[2024-06-28 07:51] LABS: BUN Creatinine Ratio 20.9 (10-20); Calcium 8.6 mg/dl (8.6-10.3); Creatinine Clr Calc Pharmacy 70.5 ml/min; Potassium 3.7 mmol/L (3.5-5.1)
[2024-06-28 08:45] LABS: Estimated Average Glucose 120 mg/dl; Hemoglobin A1C 5.8 % (4.5-5.6)
[2024-06-28] MEDS ORDERED: DOXYCYCLINE HYCLATE 100 MG CAP PO SCH (09:00)
[2024-06-28] MEDS ORDERED: ATORVASTATIN 20 MG TAB PO SCH (09:00)
[2024-06-28] MEDS: lisinopril 20 MG TAB PO SCH (09:38)
[2024-06-28] MEDS: MULTIVITAMIN TAB PO SCH (09:39)
[2024-06-28] MEDS: FOLIC ACID 1 MG TAB PO SCH (09:39)
[2024-06-28] MEDS: CHOLECALCIFEROL 25 MCG (1000 UNITS) TAB PO SCH (09:39)
[2024-06-28] MEDS: METOPROLOL TARTRATE 25 MG TAB PO SCH (09:39)
--- NOTE | 2024-06-28 10:20 | Orthopedic Consultation ---
Date of Consultation June 28, 2024 Assessment & Plan (1) Redness and swelling of hand: Patient seen with Dr. Corral. CT scan was reviewed. Soft tissue swelling and skin thickening is appreciated along the dorsum of the hand. There are no drainable fluid collections. No evidence of osteomyelitis. No fractures. Patient clinically without any evidence of flexor tenosynovitis. Recommend nonoperable management. This very well could be cellulitis and agree with IV antibiotics for now to see if symptoms improve, especially with report that this started after a puncture wound on his middle finger. May require PICC line and longer-term IV antibiotics given failure of outpatient p.o. medication. Radiologist considered gout/pseudogout as possible etiology however patient does not really have any redness or swelling in the location of the wrist or carpals where calcifications are appreciated, so felt to be less likely. Could consider adding steroids if not responding to IV antibiotics. May consider addition of CRP and ESR. Patient can work on range of motion of the fingers, hand, and wrist. He states that he plans to travel back to [place] this coming Thursday. Could consider outpatient dermatology follow-up at home if not responding to this therapy. Present on Admission?: Yes Supervising Physician Co-Signing Physician Notes I, Dr. Corral, saw and exmined the patient with my PA and agree with the above findings and plan of care I developed and discussed with my PA. History of Present Illness Reason for Consultation: Right hand swelling Requesting Physician: Francesca Corral MD Attending Physician: Roberto Escoto MD History of Present Illness Ferdinand Gregorio is a 78-year-old male who presented to the emergency department last night with 4 weeks of right hand redness and swelling. He has been on multiple outpatient antibiotics. Was seen in an emergency department in [place] and received a dose of IV antibiotics which did improve symptoms but then symptoms worsened again after being discharged on outpatient antibiotics. Hand CT and lab work was obtained in the emergency department, patient was started on IV antibiotics, and admitted under the hospitalist service given failed outpatient management. 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 He describes the symptoms as more tightness than pain, and it has been quite pruritic in nature. He denies any numbness or tingling in his fingers. No history of diabetes. Now lives in [place], has plans to return home on Thursday. Allergies Allergy/AdvReac Type Severity Reaction Status Date / Time omeprazole AdvReac Nausea Verified 07/20/18 09:42 Home Medications Medication Instructions Recorded Confirmed Type atorvastatin 20 mg tablet 20 mg PO DAILY 07/09/18 06/27/24 History multivitamin 1 tab PO DAILY 07/09/18 06/27/24 History omega 2-ijl-bra-fish oil 1,000 mg 2 cap PO BID 07/09/18 06/27/24 History (120 mg-180 mg) capsule (Fish Oil) amlodipine 5 mg tablet 5 mg PO DAILY 06/27/24 06/27/24 History amoxicillin 500 mg capsule 2,000 mg PO ONCE PRN dental 06/27/24 06/27/24 History apixaban 5 mg tablet (Eliquis) 5 mg PO DAILY 06/27/24 06/27/24 History ascorbic acid (vitamin C) 1,000 mg 1 g PO DAILY 06/27/24 06/27/24 History tablet (Vitamin C) cholecalciferol (vitamin D3) 25 25 mcg PO DAILY 06/27/24 06/27/24 History mcg (1,000 unit) capsule (Vitamin D3) cyanocobalamin (vitamin B-12) 1,000 mcg IM DIRECTED 06/27/24 06/27/24 History 1,000 mcg/mL injection solution folic acid 1 mg tablet 1 mg PO DAILY 06/27/24 06/27/24 History lisinopril 20 1 tab PO DAILY 06/27/24 06/27/24 History mg-hydrochlorothiazide 12.5 mg tablet metoprolol tartrate 25 mg tablet 25 mg PO BID 06/27/24 06/27/24 History Patient History Medical History Hyperlipidemia HTN (hypertension) Family History Other Family history non-contributory Social History Smoking Status: Former smoker Tobacco Type: Cigarettes Second Hand Exposure: No; Do You Dip or Chew Tobacco: No; Tobacco Cessation Education Requested by Patient: No Hx Alcohol Use: Yes Alcohol type: beer and wine Hx Substance Use: No Preferred Language: Kyrgyz Communication Ability: Effective Access Spec Required: No Beliefs That Will Affect Care: None marital status: Current Living Situation: Spouse current occupational status: retired Other Information That Helps Us Care for You: No Feels Safe at Home: Yes Safety Concerns: Feels Safe At This Time Assistive Devices: None Physical Exam Constitutional: Seen in bed sitting up. Resting comfortably in no distress. Pleasant. Cardiovascular: Right radial pulse 2+ Musculoskeletal: Right upper extremity: Scaling skin that is thickened and erythematous noted on the dorsum of the hand extending onto the proximal phalanxes of the 2nd through 3rd digits. On the third digit the erythema and thickening extends the entirety of the finger. Borders are well-demarcated. Nontender to palpation. No lymphatic streaking. Range of motion is reduced in the middle finger from a flexion standpoint when making a full fist secondary to swelling. Motor function with thumb extension, okay sign, wrist extension, resisted finger abduction, index and middle finger crossed intact. No tenderness to palpation flexor tendons or wrist. Skin: See MSK: Erythema traced with a skin marker Neurologic: No sensory deficits to light touch in right fingers Results & Data Vital Signs (Past 12 Hours) Vital Signs Temp Pulse Resp BP Pulse Ox O2 Del Method 06/28/24 09:37 83 155/100 H 06/28/24 08:04 98.2 F 80 18 143/91 H 95 Room Air 06/28/24 02:20 152/88 H 06/28/24 02:15 Room Air 06/28/24 02:15 97.7 F 77 16 156/105 H 98 Room Air 06/28/24 01:00 73 18 137/97 96 Room Air 06/27/24 23:30 77 18 109/55 L 99 Room Air Laboratory Results 06/28/24 06/28/24 06/27/24 07:01 00:22 19:50 WBC 7.16 6.28 RBC 4.86 5.28 Hgb 14.6 15.9 Hct 41.8 L 46.3 MCV 86.0 87.7 MCH 30.0 30.1 MCHC 34.9 34.3 RDW Std Deviation 40.4 42.2 RDW Coeff of Daljit 13.1 13.2 Plt Count 175 209 MPV 9.2 L 9.2 L Immature Gran % (Auto) 0.7 0.8 Neut % (Auto) 79.2 64.3 Lymph % (Auto) 11.7 24.0 Coke % (Auto) 6.3 8.0 Eos % (Auto) 1.7 2.4 Baso % (Auto) 0.4 0.5 Neut # (Auto) 5.67 4.04 Lymph # (Auto) 0.84 L 1.51 Coke # (Auto) 0.45 0.50 Eos # (Auto) 0.12 0.15 Baso # (Auto) 0.03 0.03 Immature Gran # (Auto) 0.05 0.05 Sodium 140 139 Potassium 3.7 3.9 Chloride 104 100 Carbon Dioxide 29 33 H Anion Gap 7 6 BUN 23 27 H Creatinine 1.10 1.34 Est Cr Clr Drug Dosing 70.5 57.7 eGFR 68.29 53.89 BUN/Creatinine Ratio 20.9 H 20.1 H Glucose 103 H 114 H Estimat Average Glucose 120 Hemoglobin A1c 5.8 H Calcium 8.6 9.6 Total Bilirubin 0.7 AST 28 ALT 22 Alkaline Phosphatase 106 H Total Protein 7.1 Albumin 4.5 Globulin 2.6 Albumin/Globulin Ratio 1.7 Nasal Screen MRSA (PCR) Negative Diagnostic Findings Hand CT 06/27/24 23:56 EXAM: CT hand RT w con CLINICAL HISTORY: swelling TECHNIQUE: Contiguous axial CT images of right hand were obtained with intravenous contrast. Coronal and sagittal reconstructions were likewise performed and indicated to increase the sensitivity for detecting clinically relevant pathology. CT scan was performed according to ALARA (as low as reasonably achievable). COMPARISON: None. FINDINGS: Early osteoarthritic changes in the form of subchondral cysts and sclerosis, asymmetric joint space reduction are noted at the level of 2nd, 3rd, fourth metacarpophalangeal joints. Thickening of the skin, subcutaneous soft tissue is noted involving the right hand extending from the level of distal carpal row up to the shafts of proximal phalanges of 2nd, 3rd, fourth and fifth fingers. Maximum thickness of the soft tissue measures 7.5 mm. Mild subcutaneous fat stranding is noted involving the visualized portion of the distal forearm and hand, predominantly along the dorsal aspect. No acute fracture or dislocation. No significant joint effusion. Soft tissue calcification is noted at the level of triangular fibrocartilaginous complex. Similar calcification is also noted at the level of scapholunate interval and the radio carpal joints. No destructive osseous lesion. No cortical destruction to suggest osteomyelitis. No abscess formation. The visualized muscles and tendons appear grossly unremarkable. IMPRESSION: 1. Thickening of the skin, subcutaneous soft tissue is noted involving the right hand extending from the level of distal carpal row up to the shafts of proximal phalanges as described above. This may represent infective/inflammatory cellulitis. Suggested clinical /lab correlation. 2. Mild subcutaneous fat stranding is noted involving the visualized portion of the distal forearm and hand, predominantly along the dorsal aspect. 3. Soft tissue calcification is noted at the level of triangular fibrocartilaginous complex. Similar calcification is also noted at the level of scapholunate interval and the radio carpal joints. 4. Early osteoarthritic changes in the form of subchondral cysts and sclerosis, asymmetric joint space reduction are noted at the level of 2nd, 3rd, fourth metacarpophalangeal joints. 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 Other possibility is underlying chronic renal disorder. Suggested clinical/lab correlation. Electronically signed by Balaji Babb 06-28-2024 02:08 AM
--- NOTE | 2024-06-28 13:36 | Hospitalist Progress Note ---
Date of Service June 28, 2024 Assessment & Plan (1) Cellulitis: Plan: per previous hospitalist notes with addendum: Persistent right hand cellulitis Failed outpatient Bactrim,doxycycline Rx No sepsis for now -- blood cultures ordered -- CT hand:1. Thickening of the skin, subcutaneous soft tissue is noted involving the right hand extending from the level of distal carpal row up to the shafts of proximal phalanges as described above. This may represent infective/inflammatory cellulitis. Suggested clinical /lab correlation. 2. Mild subcutaneous fat stranding is noted involving the visualized portion of the distal forearm and hand, predominantly along the dorsal aspect. 3. Soft tissue calcification is noted at the level of triangular fibrocartilaginous complex. Similar calcification is also noted at the level of scapholunate interval and the radio carpal joints. 4. Early osteoarthritic changes in the form of subchondral cysts and sclerosis, asymmetric joint space reduction are noted at the level of 2nd, 3rd, fourth metacarpophalangeal joints. 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 Other possibility is underlying chronic renal disorder. Suggested clinical/lab correlation. -- Ortho consulted continue daptomycin plus cefepime ID consulted Consider possible gout versus pseudogout if without improvement A-fib on Eliquis Hypertension -- holding lisinopril/HCTZ as patient received IV contrast hyperlipidemia, on statin Rx GERD prostate cancer status post surgery hx acquired hemolytic anemia/cold agglutinin disease Primary hyperparathyroidism status post surgery Hyperglycemia -- A1c 5.8 DVT prophylaxis. Eliquis DNR plan of care discussed with patient and in detail and at length all questions answered they are understanding, agreeable, comfortable with the plan of care Admission and Anticipated Discharge Date Admission Date: June 27, 2024 Subjective follow-up for right hand cellulitis, etc. Seen sitting up in bed, comfortable, not in distress Reports mild right hand discomfort No fevers or chills No other new symptoms Review of Systems Review of Systems: all noted and negative except for above Physical Exam Physical Exam: General- oriented x 3, not in distress, speaks in sentences with no effort or accessory muscle use Eyes- anicteric Neck- no JVD Lungs- clear breath sounds bilaterally, no rales/wheezes Heart- normal rate, regular rhythm; no murmurs Abdomen- normal bowel sounds, nondistended, soft, nontender Extremities- Right hand: Moderate edema, and erythema of the middle finger spreading to the dorsum of the hand no warmth, no tenderness, no edema of joints noted Right wrist essentially normal Left hand: Essentially normal LE: no pretibial edema, no calf tenderness Neuro- alert, oriented x 3; no gross focal neurologic deficits Skin- warm & dry Results & Data Results & Data Vital Signs (Past 12 Hours) Vital Signs Temp Pulse Resp BP Pulse Ox O2 Del Method 06/28/24 10:22 77 141/95 H 06/28/24 09:37 83 155/100 H 06/28/24 08:04 36.8 C 80 18 143/91 H 95 Room Air 06/28/24 02:20 152/88 H 06/28/24 02:15 Room Air 06/28/24 02:15 36.5 C 77 16 156/105 H 98 Room Air all noted and reviewed including below
[2024-06-28] MEDS: APIXABAN 5 MG TABLET PO SCH (20:12)
[2024-06-29 06:42] LABS: Basophils # (auto) 0.02 K/uL (0.00-0.20); Basophils % (auto) 0.4 %; Eosinophils # (auto) 0.15 K/uL (0.00-0.50); Eosinophils % (auto) 2.7 %; Hematocrit (blood only) 43.8 % (42.0-52.0); Immature Granulocytes # (auto) 0.05 K/uL (0.01-0.20); Immature Granulocytes % (auto) 0.9 %; Mean Corpuscular Hemoglobin 30.1 pg (25.0-34.0); Mean Corpuscular Hgb Conc 34.2 g/dL (32.0-36.0); Mean Corpuscular Volume 87.8 fL (80.0-100.0); Mean Platelet Volume 9.3 fL (9.4-12.4); Monocytes # (auto) 0.44 K/uL (0.11-0.59); Monocytes % (auto) 7.8 %; Neutrophils # (auto) 3.69 K/uL (1.40-6.50); Neutrophils % (auto) 65.2 %; Platelet Count 182 K/uL (130-400); RDW Standard Deviation 41.8 fL (36.4-46.3); Red Blood Count 4.99 M/uL (4.70-6.10); White Blood Count 5.65 K/ul (4.8-10.8)
[2024-06-29 07:10] LABS: C Reactive Protein 2.38 mg/dl (0-0.5); Calcium 8.4 mg/dl (8.6-10.3); Creatinine Clr Calc Pharmacy 69.2 ml/min; Potassium 3.8 mmol/L (3.5-5.1)
[2024-06-29 07:40] VITALS: PULSE 81
--- NOTE | 2024-06-29 10:23 | Orthopedic Progress Note ---
Date of Service June 29, 2024 Assessment & Plan (1) Redness and swelling of hand: Plan: Continue current treatment. No indications for surgical intervention from orthopedic standpoint. Encouraged continued elevation of his right hand. Encouraged finger range of motion. Findings discussed with Dr. Corral. Will sign off at this time. Continue care per primary service. Pain medication such as Tylenol or Advil as needed. May advance activities with his right hand as tolerated. Okay for discharge from an orthopedic standpoint when medically stable. Follow-up with physician in [place]. Patient tells me he is going back home on Thursday. Admission and Anticipated Discharge Date Admission Date: June 27, 2024 Subjective Patient is resting in bed. States That the right hand is feeling much better. He states that is less swollen. His fingers are moving more and he has less pain. He thinks that also the redness has improved. He is wondering if he is able to go home today. His is at bedside. Physical Exam Musculoskeletal: Exam of his right hand: He is able to fully extend his fingers and hold against resistance. Distal pulses are 2+. Sensation is normal. Purpleish redness coloration across the dorsum of his hand has retracted from the skin yissel approximately half to 1 full centimeter. The hand is nontender. There is no underlying fluctuance or shaded. No open wounds. Full wrist range of motion. Full pronation and supination of the forearm. Results & Data Vital Signs (Past 12 Hours) Vital Signs Temp Pulse Resp BP Pulse Ox O2 Del Method 06/29/24 07:38 36.6 C 81 16 148/95 H 96 Room Air 06/29/24 07:20 Room Air Laboratory Results 06/29/24 Range/Units 06:14 WBC 5.65 (4.8-10.8) K/ul RBC 4.99 (4.70-6.10) M/uL Hgb 15.0 (14.0-18.0) g/dl Hct 43.8 (42.0-52.0) % MCV 87.8 (80.0-100.0) fL MCH 30.1 (25.0-34.0) pg MCHC 34.2 (32.0-36.0) g/dL RDW Std Deviation 41.8 (36.4-46.3) fL RDW Coeff of Daljit 13.0 (11.5-14.5) % Plt Count 182 (130-400) K/uL MPV 9.3 L (9.4-12.4) fL Immature Gran % (Auto) 0.9 % Neut % (Auto) 65.2 % Lymph % (Auto) 23.0 % [place] % (Auto) 7.8 % Eos % (Auto) 2.7 % Baso % (Auto) 0.4 % Neut # (Auto) 3.69 (1.40-6.50) K/uL Lymph # (Auto) 1.30 (1.20-3.40) K/uL [place] # (Auto) 0.44 (0.11-0.59) K/uL Eos # (Auto) 0.15 (0.00-0.50) K/uL Baso # (Auto) 0.02 (0.00-0.20) K/uL Immature Gran # (Auto) 0.05 (0.01-0.20) K/uL ESR 9 (0-20) mm/hr Sodium 140 (136-145) mmol/L Potassium 3.8 (3.5-5.1) mmol/L Chloride 105 (98-107) mmol/L Carbon Dioxide 29 (21-32) mmol/L Anion Gap 6 (3-11) BUN 19 (6-23) mg/dl Creatinine 1.12 (0.6-1.4) mg/dl Est Cr Clr Drug Dosing 69.2 ml/min eGFR 66.83 BUN/Creatinine Ratio 17.0 (10-20) Glucose 100 H (70-99(Fasting)) mg/dl Calcium 8.4 L (8.6-10.3) mg/dl C-Reactive Protein 2.38 H (0-0.5) mg/dl
[2024-06-29 11:41] VITALS: RESP 14; TEMP 97.5; O2SAT 93
[2024-06-29 11:44] VITALS: BP 146/91
--- NOTE | 2024-06-29 12:49 | Infectious Disease Consult ---
Date of Service June 29, 2024 Telehealth Information I performed this visit using a real-time telehealth connection between my location and the patients location ([facility]). After connecting through interactive tele-video, patient was identified by name and date of and/or wristband check.Patient (or authorized healthcare sales representative womens health) was informed that this was a telemedicine visit and it was being conducted confidentially over secure lines. My office door was closed and no on e else was present in the room with me.Patient (or authorized healthcare sales representative womens health) provided consent to proceed with the visit, expressed an understanding of privacy and security of the telemedicine visit, and gave permission to have a hospital sales representative womens health in the room in order to assist with the visit and to conduct portions of the visit, as needed. I informed the patient (or authorized healthcare sales representative womens health) that I reviewed their record and presented the opportunity for them to ask any questions regarding the visit today. The patient agreed to participate. Assessment & Plan (1) Cellulitis of right hand: (2) Puncture wound: Plan I agree with IV cefepime. If no contraindications, I would recommend stopping IV daptomycin and starting on IV vancomycin. A puncture wound with cellulitis could be due to gram neg organisms dorothy pseudomonas which lives in soil. When the patient starts showing improvement in his swelling and redness, I would recommend stepping down IV antibiotics to oral linezolid 600 mg twice daily and oral Cipro 500 mg twice daily to complete a course of 14 days including inpa tient antibiotic days. Thank you for consulting Infectious Disease. We will sign off for now. History of Present Illness History of Present Illness Mr. Gregorio is a 78-year-old man with medical history of HTN, hyperlipidemia, atrial fibrillation, prostate cancer status post prostatectomy, hyperparathyroidism status post parathyroidectomy and history of hemolytic anemia/cold agglutinin disease who was admitted to [facility] because of right hand swelling and redness. Apparently, the patient was diagno sed with right hand cellulitis after a puncture injury of his right middle finger around 1 month prior to presentation. The injury happened in [place] and he visited Emergency Department then and discharged on outpatient antibiotics. Based on available records, he received multiple different antibiotic courses including keflex, bactrim and recently doxycycline.Doxycycline did help with the cellulitis; however, he recently ran out of the pills and his right hand swelling and redness got worse. On presentation, he was afebrile and hypertensive at 153/101; otherwise, the rest of the vitals were within normal limits. A CT scan of the hand obtained on presentation showed thickening of the skin and subcutaneous soft tissue involving the right hand with mild subcutaneous fat stranding reaching the distal forearm. ID team was consulted for further recommendations and to help guide antibiotic treatment. Allergies Allergy/AdvReac Type Severity Reaction Status Date / Time omeprazole AdvReac Nausea Verified 07/20/18 09:42 Home Medications Medication Instructions Recorded Confirmed Type atorvastatin 20 mg tablet 20 mg PO DAILY 07/09/18 06/27/24 History multivitamin 1 tab PO DAILY 07/09/18 06/27/24 History omega 3-qcg-kbm-fish oil 1,000 mg 2 cap PO BID 07/09/18 06/27/24 History (120 mg-180 mg) capsule (Fish Oil) amlodipine 5 mg tablet 5 mg PO DAILY 06/27/24 06/27/24 History apixaban 5 mg tablet (Eliquis) 5 mg PO DAILY 06/27/24 06/27/24 History ascorbic acid (vitamin C) 1,000 mg 1 g PO DAILY 06/27/24 06/27/24 History tablet (Vitamin C) cholecalciferol (vitamin D3) 25 25 mcg PO DAILY 06/27/24 06/27/24 History mcg (1,000 unit) capsule (Vitamin D3) cyanocobalamin (vitamin B-12) 1,000 mcg IM DIRECTED 06/27/24 06/27/24 History 1,000 mcg/mL injection solution folic acid 1 mg tablet 1 mg PO DAILY 06/27/24 06/27/24 History lisinopril 20 1 tab PO DAILY 06/27/24 06/27/24 History mg-hydrochlorothiazide 12.5 mg tablet metoprolol tartrate 25 mg tablet 25 mg PO BID 06/27/24 06/27/24 History amoxicillin 500 mg-potassium 1 tab PO BID 14 days #28 tabs 06/29/24 Rx clavulanate 125 mg tablet (Augmentin) doxycycline hyclate 100 mg capsule 100 mg PO BID 14 days #28 caps 06/29/24 Rx Patient History Medical History (Updated 06/29/24 @ 12:49 by Melissa Brink MD) Hyperlipidemia HTN (hypertension) Family History Other Family history non-contributory Social History Smoking Status: Former smoker Tobacco Type: Cigarettes Second Hand Exposure: No; Do You Dip or Chew Tobacco: No; Tobacco Cessation Education Requested by Patient: No Hx Alcohol Use: Yes Alcohol type: beer and wine Hx Substance Use: No Preferred Language: Greenlandic Communication Ability: Effective [employer] Dealer Required: No Beliefs That Will Affect Care: None marital status: Current Living Situation: Spouse current occupational status: retired Other Information That Helps Us Care for You: No Feels Safe at Home: Yes Safety Concerns: Feels Safe At This Time Assistive Devices: None Review of Systems Negative except for what was mentioned in the H&P. Physical Exam Could not be performed as the encounter was conducted via TeleMed. Results & Data Vital Signs (Past 12 Hours) Vital Signs Temp Pulse Pulse Resp BP Pulse Ox O2 Del Method 06/29/24 11:38 36.4 C L 81 14 146/91 H 93 Room Air 06/29/24 07:38 36.6 C 81 16 148/95 H 96 Room Air 06/29/24 07:20 Room Air Laboratory Results Microbiology: 06/27: 2 sets of blood culture negative to date Diagnostic Findings Imaging: Right hand CT scan on 06/27: 1. Thickening of the skin, subcutaneous soft tissue is noted involving the right hand extending from the level of distal carpal row up to the shafts of proximal phalanges as described above. This may represent infective/inflammatory cellulitis. Suggested clinical /lab correlation. 2. Mild subcutaneous fat stranding is noted involving the visualized portion of the distal forearm and hand, predominantly along the dorsal aspect.
--- NOTE | 2024-06-29 15:25 | Discharge Summary ---
Discharge Summary Date of Service June 29, 2024 Principal Dx & Hospital Course #1 = Principal Diagnosis (1) Cellulitis: per previous hospitalist notes with addendum: Persistent right hand cellulitis Failed outpatient Bactrim,doxycycline Rx No sepsis for now -- blood cultures ordered -- CT hand:1. Thickening of the skin, subcutaneous soft tissue is noted involving the right hand extending from the level of distal carpal row up to the shafts of proximal phalanges as described above. This may represent infective/inflammatory cellulitis. Suggested clinical /lab correlation. 2. Mild subcutaneous fat stranding is noted involving the visualized portion of the distal forearm and hand, predominantly along the dorsal aspect. 3. Soft tissue calcification is noted at the level of triangular fibrocartilaginous complex. Similar calcification is also noted at the level of scapholunate interval and the radio carpal joints. 4. Early osteoarthritic changes in the form of subchondral cysts and sclerosis, asymmetric joint space reduction are noted at the level of 2nd, 3rd, fourth metacarpophalangeal joints. 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 Other possibility is underlying chronic renal disorder. Suggested clinical/lab correlation. -stable for discharge home with course of abx -ESR/CRP only mildly elevated, ESR completely normal -some concern for gout or pseudogout, inflammatory markers not consistent with active bacterial infection A-fib on Eliquis Hypertension -- holding lisinopril/HCTZ as patient received IV contrast hyperlipidemia, on statin Rx GERD prostate cancer status post surgery hx acquired hemolytic anemia/cold agglutinin disease Primary hyperparathyroidism status post surgery Hyperglycemia -- A1c 5.8 Notes For Next Care Provider Medication Changes From Visit 78 yo male with pmhx of A-fib on Eliquis, hypertension, hyperlipidemia, GERD, prostate cancer status post surgery, primary hyperparathyroidism status post surgery, hx hemolytic anemia/cold agglutinin disease presents for right hand ce llulitis. On medicine, ortho consulted, recommended treatment with abx. ESR/CRP not consistent with active bacterial infection, however clinically improved. On 06/29/2024 patient medically stable for discharge home. To do: [ ] f/u with rheumatology outpatient if no improvement Admission HPI Per Admitting Provider History obtained from patient, family, and records. Medical history significant for A-fib on Eliquis, hypertension, hyperlipidemia, GERD, prostate cancer status post surgery, primary hyperparathyroidism status post surgery, hx hemolytic anemia/cold agglutinin disease. Last admission 2018 for hemolytic anemia and new onset A-fib. Patient is currently a resident of [place], [place] who is visiting family for the week. 1 month history of right hand swelling following a puncture injury of the right hand while working in his garage. Outpatient courses of antibiotics. Urgent care and ER visit in [place]. No fever, no chills. Patient ran out off doxycycline prescription 2 days ago. Worsening hand swelling. Patient brought to ER by for evaluation. 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 External ears normal. No rhinorrhea. Moist mucous membranes. Neck: Supple, full range of motion, no observable masses, No meningeal sign. Lungs: No Respiratory distress. CV: RRR, no edema. Abdomen: Soft, nondistended, No rebound tenderness. MSK: improving raised macular rash consistent with urticaria Skin: No rashes, petechiae, lesions. Normal color per patient. Neuro: Normal Gait, Grossly intact. Psych: Appropriate for situation. Updated Medication List Medication Instructions Recorded Confirmed Type atorvastatin 20 mg tablet 20 mg PO DAILY 07/09/18 06/27/24 History multivitamin 1 tab PO DAILY 07/09/18 06/27/24 History omega 2-agi-pmm-fish oil 1,000 mg 2 cap PO BID 07/09/18 06/27/24 History (120 mg-180 mg) capsule (Fish Oil) amlodipine 5 mg tablet 5 mg PO DAILY 06/27/24 06/27/24 History apixaban 5 mg tablet (Eliquis) 5 mg PO DAILY 06/27/24 06/27/24 History ascorbic acid (vitamin C) 1,000 mg 1 g PO DAILY 06/27/24 06/27/24 History tablet (Vitamin C) cholecalciferol (vitamin D3) 25 25 mcg PO DAILY 06/27/24 06/27/24 History mcg (1,000 unit) capsule (Vitamin D3) cyanocobalamin (vitamin B-12) 1,000 mcg IM DIRECTED 06/27/24 06/27/24 History 1,000 mcg/mL injection solution folic acid 1 mg tablet 1 mg PO DAILY 06/27/24 06/27/24 History lisinopril 20 1 tab PO DAILY 06/27/24 06/27/24 History mg-hydrochlorothiazide 12.5 mg tablet metoprolol tartrate 25 mg tablet 25 mg PO BID 06/27/24 06/27/24 History amoxicillin 500 mg-potassium 1 tab PO BID 14 days #28 tabs 06/29/24 Rx clavulanate 125 mg tablet (Augmentin) doxycycline hyclate 100 mg capsule 100 mg PO BID 14 days #28 caps 06/29/24 Rx Hospital Stay Data Consultations 06/27/24 22:22 ED Decision to Admit Stat 06/28/24 03:33 Consult Orthopedic Surgery Routine 06/28/24 13:34 Consult Infectious Diseases Routine Diagnostic Imagining Performed 06/27/24 23:56 CT hand RT w con Stat Pending Results Patient Have Any Pending Studies at Discharge: No Discharge Instructions Given to Patient (Per Discharging Provider) 1. Please take medications as prescribed. 2. Finish course of antibiotics. 3. Please do not use hands for manual labor or other tasks for 1 week. Total Time Total Time Spent Total Time Spent (In Minutes): I spent a total of 35 minutes in direct patient care, including [id number] time with the patient and/or family, reviewing medical records, ordering and reviewing diagnostic tests, and coordinating care with other healthcare providers. This time includes: history taking, physical examination, medical decision making, counseling, ECG interpretation, imaging interpretation, lab interpretation, orders, and education, excluding time spent in the performance of separately billed services.
[2024-07-11] MEDS ORDERED: CYANOCOBALAMIN 1000 MCG/ML VIAL IM SCH (09:00)
== END 2024-06-29 14:08 | disposition home or self-care (01) | DRG 603 ==
LOC: ED 19:30 → 3N 23:56 → SUATTDRO 23:56 → 3N 06-28 01:20
DX: S61.23 Puncture wound without foreign body of finger without damage to nail; Z66 Do not resuscitate; I10 Essential (primary) hypertension; E21.0 Primary hyperparathyroidism; L03.113 Cellulitis of right upper limb; Z86.2 Personal history of diseases of the blood and blood-forming organs and certain disorders involving the immune mechanism; E78.5 Hyperlipidemia, unspecified; Z79.899 Other long term (current) drug therapy; K21.9 Gastro-esophageal reflux disease without esophagitis; Z82.49 Family history of ischemic heart disease and other diseases of the circulatory system; R73.9 Hyperglycemia, unspecified; Z87.891 Personal history of nicotine dependence; Z90.79 Acquired absence of other genital organ(s); Z85.46 Personal history of malignant neoplasm of prostate; Z79.01 Long term (current) use of anticoagulants; I48.91 Unspecified atrial fibrillation; W45.8XXS Other foreign body or object entering through skin, sequela; Z88.8 Allergy status to other drugs, medicaments and biological substances